=== PATIENT | female | born 1935 | race Caucasian/White ===

== ENCOUNTER 2016-10-20 02:42 | Inpatient (IN) | payer MEDICARE, MEDICAID ==
[~2016-10-20] VITALS: Ht 160 cm; Wt 93.5 kg
[~2016-10-20 02:42] MED LIST: GLIM2TAB PO; GLUC500T12 PO; LISI-567 PO; METF500T4 PO; METO25TA99 PO; MULT1CAP33 PO; SIMV40TA5 PO
[2016-10-20 04:17] VITALS: BP 121/69; PULSE 60; RESP 18; O2SAT 95
[2016-10-20] MEDS ORDERED: SULF1TAB7 PO (04:31)
[2016-10-20] MEDS ORDERED: FLUC100T4 PO (04:31)
[2016-10-20] MEDS ORDERED: GLIM2TAB2 PO (04:31)
[2016-10-20] MEDS ORDERED: LORA10CA PO (04:31)
--- NOTE | 2016-10-20 05:21 | NUR ---
admit: admit assessment complete, pt forgetful. med rec completed with meds that arrived with pt from home. pt is wearing glasses otherwise no other belongings. pt is alert to self and place, forgetful, repeating herself. will continue to monitor.
[2016-10-20 05:32] LABS: APPEARANCE,URINE CLEAR (CLEAR,HAZY); COLOR,URINE YELLOW (YELLOW); OCCULT BLOOD,URINE NEGATIVE (NEGATIVE); UROBILINOGEN,URINE NORMAL (NORMAL)
[2016-10-20] MEDS ORDERED: Polyethylene Glycol (PEG) 17 Gm Powder PO PRN (07:05)
[2016-10-20] MEDS ORDERED: Alum-Mag Hydrox-Simeth 30 mL Suspension PO PRN (07:05)
[2016-10-20] MEDS ORDERED: Ondansetron 2 mg/mL 2 mL Inj IVPUSH PRN (07:05)
[2016-10-20 07:59] LABS: BASOPHILS % (AUTO) 0.1 % (0-3); EOSINOPHILS % (AUTO) 0.1 % (0-5); MONOCYTES % (AUTO) 29.8 % (4-12); Mean Corpuscular Hemoglobin 28.6 pg (27.0-35.0); Mean Corpuscular Volume 84.8 fL (81-100); NEUTROPHILS % (AUTO) 42.5 % (40-74); Platelet Count 182 bil/L (150-400)
[2016-10-20] MEDS ORDERED: GLUCOSAMINE PO SCH (08:30)
--- NOTE | 2016-10-20 09:02 | HP ---
[address] [address] HISTORY AND PHYSICAL PATIENT: HILDA MARTINEZ : 1935 MR#: [id number] ADMIT: 10/20/2016 JOB ID: [id number] HISTORY OF PRESENT ILLNESS: This is a 81-year-old female admitted from the [facility] Emergency Department where she presented late last night with bilateral lower extremity weakness after her knees buckled under her and she could not get up from the floor. She was found by family quite quickly and so does not have high a risk picture for rhabdo. Workup including urinalysis, labs , troponins and EKGs was all normal but the patient still could not stand and walk and could not return home and so she was admitted on transfer for PT/OT and continued workup/treatment for the progressive weakness. At baseline she uses a walker and lives with her daughter. There has been no chest pain, nausea, vomiting abdominal pain, fevers, chills, sweats, dysuria, bleeding, rash, seizures, depression, new allergies. ALLERGIES: NGOC TYPE PARABEN ANESTHETICS. PAST MEDICAL HISTORY: 1. . 2. Hysterectomy. 3. Depression. 4. Hypertension. 5. DM type 2. 6. Hyperlipidemia. 7. Obesity. FAMILY HISTORY: Is noncontributory to this admission. SOCIAL HISTORY: She drinks no alcohol currently and does not smoke cigarettes. PHYSICAL EXAM: General: Alert and oriented to name only. No apparent distress. She is gazing up into the right no matter where I intervention analyst the room to speak with her. She appears to definitely neglect the left side. Vitals: Temperature is 36.7, pulse 60, respirations 18, blood pressure 121/69, O2 sat is 95% on room air. Pupils are equally round and reactive to light and accommodation. Extraocular muscles are intact. Sclerae are pink and not icteric. Throat looks normal. No lymph nodes are palpated. Neck/ supraclavicular: There is no thyromegaly. JVD is less than 6 cm. No carotid bruits are heard. Heart is regular rate and rhythm. No murmur. Lungs are clear to auscultation bilaterally. Abdomen is soft. Bowel sounds positive. Nontender. No organomegaly. Breast, pelvic and rectal examinations are deferred to her primary care provider. Extremities have no ankle edema. Neuro: Cranial nerves 2-12 tested intact. Motor function is 3/5 throughout. There is no tremor. The patient is distracted, hard of hearing, right gazing and left neglecting. Her motor function is symmetrically weakened without any lateralizing deficit there. Skin has no rash or jaundice. LABORATORIES: White count is 11.5, hemoglobin 15.8, platelets 182. CMP is pending. Urinalysis shows 0-2 RBCs, 0-5 WBCs, negative leukocyte esterase and nitrate. There is no imaging done yet. ASSESSMENT AND PLAN: 1. Diffuse weakness with examination suggestive of left austin-neglect. CT brain will be recommended as that does not appear to have been done at [place] in the emergency department there. PT and OT will evaluate her and dialysis social worker will evaluate for potential placement. She is not able to return to live with her daughter in this weakened state. 2. Hypertension. Continue lisinopril, metoprolol. 3. Diabetes mellitus type 2. Continue glimepiride and metformin. 4. Hyperlipidemia. Continue simvastatin. 5. Antibiotic therapy. The patient is on fluconazole and Bactrim at this time for unclear reasons that she is unable to describe. MTDD
[2016-10-20] MEDS: Trimethoprim-Sulfa 160 mg-800 mg Tablet PO SCH ×2 (09:23→21:05)
[2016-10-20] MEDS: MeTOProlol XL 25 mg ER24 Tablet PO SCH (09:24)
--- NOTE | 2016-10-20 09:41 | DRSVH ---
PROCEDURE: CT BRAIN WITHOUT CONTRAST ([id number]) INDICATIONS: Weakness and left neglect TECHNIQUE: Noncontrast 4.5 mm thick angled axial sections acquired from the foramen magnum to the vertex, with c oronal reformats. COMPARISON: [facility], CT, CT HEAD WO CONTRAST, 06/02/2016, 9:49 PM. FINDINGS: Image quality: Excellent. CSF spaces: Basal cisterns are patent. The ventricles are symmetric in size and shape. There is m ild cerebral volume loss, with resultant ventricular and sulcal prominence. Brain: There is effacement of garner-white matter differentiation as well as cortical and subcortical h yperattenuation involving a moderate sized region in the medial right occipital lobe consistent with an acute to subacute infarct. No associated hemorrhagic conversion. However, within the posterior l eft temporal lobe, there is subtle high attenuation along a few sulci suspicious for a small amount o f subarachnoid hemorrhage. In the right padilla radiata, there is an indistinct hypodensity which is new from the prior study and suggestive of a lacunar infarct of indeterminate acuity. There are also subcortical, periventricular and deep white matter hypodensities consistent with mild to moderate ch ronic small vessel ischemic changes. There is intracranial internal carotid artery atherosclerosis. Skull and face: Calvarium and visualized facial bones appear intact, without suspicious lesions. Sinuses: Visualized sinuses and mastoids are clear. IMPRESSION: 1. Acute or subacute infarct involving the right occipital lobe without associated hemorrhagic conve rsion. 2. Suggestion of a small amount of subarachnoid hemorrhage along the posterior left temporal lobe. 3. Small hypodensity in the right padilla radiata compatible with a small lacunar infarct of indeterm inate acuity. 4. Mild cerebral volume loss and chronic white matter small vessel ischemic changes. Recommend further evaluation with MRI if clinically indicated. Dictated by: Bo Shepard M.D. on 10/20/2016 at 9:37 Approved by: Bo Shepard M.D. on 10/20/2016 at 9:37
--- NOTE | 2016-10-20 11:32 | NUR ---
Evaluation completed. Please go to "Notes" then click on "Assessments and Notes" (bottom left corner of screen). Then select appropriate discipline tab on top of screen.
--- NOTE | 2016-10-20 12:09 | DRSVH ---
PROCEDURE: X-RAY CHEST ONE VIEW, PORTABLE ([id number]) INDICATIONS: Weakness TECHNIQUE: One view of the chest was acquired. COMPARISON: [facility], CR, XR CHEST 1V PORTABLE, 06/02/2016, 8:37 PM. FINDINGS: Surgical changes and devices: None. Lungs and pleura: The patient limited by patient rotation. No definite pleural effusions or pneumot horax. No definite consolidation. There is a nodular opacity in the left superhilar region likely c orresponding to complement vascular structures. Mediastinum: Heart size is enlarged. Bones and chest wall: No suspicious bony lesions. Overlying soft tissues appear unremarkable. IMPRESSION: 1. Limited study due to patient rotation demonstrates no definite consolidation. Recommend repeat s tudy if clinical concern persists. 2. Cardiomegaly. Dictated by: Bo Shepard M.D. on 10/20/2016 at 12:05 Approved by: Bo Shepard M.D. on 10/20/2016 at 12:05
--- NOTE | 2016-10-20 13:28 | NUR ---
Evaluation completed. Please go to "Notes" then click on "Assessments and Notes" (bottom left corner of screen). Then select appropriate discipline tab on top of screen.
--- NOTE | 2016-10-20 14:33 | DRSVH ---
PROCEDURE: MRI STROKE PROTOCOL ([id number]) Pre- and post-contrast brain MRI, non-contrast brain MR angiogram, pre- and postcontrast neck MR ramiro ogram INDICATIONS: CT (+) stroke TECHNIQUE: Brain: Noncontrast axial T1 spin echo, axial T2 fast spin echo, sagittal and axial FLAIR, coronal T2 fast spin echo, axial gradient echo, axial diffusion and ADC through the brain. After the administr ation of contrast, axial 3D VIBE of the cranial vasculature and brain. Brain MRA: Non-contrast 3-D time of flight MR angiogram, with multiple dxygswp-qejpewdfm-fpxbdnkidv (MIP) reformats performed. Neck MRA: Axial and sagittal TruFISP through the neck. Coronal dynamic MR angiogram during administ ration of contrast in the arterial and venous phases, with 3-dimenstional nxzkgqe-jjoltpbnm-legettvve n (MIP) reformats constructed from subtraction images. COMPARISON: [facility], CT, CT BRAIN WO CON, 10/20/2016, 8:48. FINDINGS: Image quality: Diagnostic. BRAIN: Brain: There is no acute intra-axial hemorrhage. Subtle areas of increased flair signal are identifi ed along the arachnoid space involving the left temporal occipital region (image 10, series 5), john tible with a subarachnoid hemorrhage comment especially when combined with the CT findings. No extra- axial fluid collection is identified. There is no midline shift or mass effect. The orbits are gross ly unremarkable. There is a diffuse area of vague increased signal on the flair images involving the posterior right parieto-occipital region and posterior right frontal region near the convexity. Veelina esponding increased signal within these regions on the diffusion images is present. A small area of increased diffusion and flair signal is noted involving the parahippocampal gyrus is also present at the right temporal lobe. No hemorrhagic conversion is appreciated. Mild decreased enhancement invol ving these regions is present on the postcontrast images. Additional foci of increased flair signal within the deep white matter of the supratentorial brain are present. The midline intracranial struc tures are within normal limits. No parenchymal masses are identified. The ventricles and cortical sulci mildly prominent. Bones: The imaged osseous structures are grossly intact. No suspicious osseous lesions are identifie d. The included paranasal sinuses and mastoid air cells are clear. Extracranial soft tissues: The imaged overlying soft tissues of the face and head are grossly unremar kable. BRAIN MR ANGIOGRAM: Anterior circulation: Intracranial internal carotid arteries are normal in size and enhancement. Th e flow within the paired anterior cerebral arteries is normal and symmetric. The flow within the mid dle cerebral arteries is normal and symmetric. The anterior communicating artery is seen. No stenos es, occlusions, or aneurysms. Posterior circulation: The left vertebral artery is diminutive and likely occluded. There is irregul arity of the basilar artery. Reduced or absent flow of the right posterior cerebral artery is presen t. A similar appearance is noted involving the right superior cerebellar artery. The left posterior cerebral artery and cerebellar arteries are patent and unremarkable. No aneurysms. NECK MR ANGIOGRAM: Carotids: Great vessels demonstrate a conventional anatomy as they arise from the aortic arch. The origins of the common carotid arteries appear patent. The calibers and courses of both common caroti d arteries are normal. The bifurcation regions appear normal bilaterally. The internal carotid tina rich demonstrate normal course and caliber. Posterior circulation: The right vertebral artery is normal in course and caliber without definite hi gh grade narrowing appreciated. There is mild atherosclerotic irregularity along the origin of the r ight vertebral artery. Mild tortuosity of the vertebral artery is present. The left vertebral arter y is occluded from the level of the origin. Only minimal flow is seen within the distal aspect of th e left vertebral artery near the basilar artery, which may be related to collateral vessels or retrog rade flow from the right vertebral artery/basilar artery. Miscellaneous: Subclavian arteries appear patent. Pre-contrast images through the neck show no soft tissue abnormalities. IMPRESSION: BRAIN MRI: 1. Right posterior cerebral artery infarction with acute ischemia noted involving the right parietal -occipital region, the right parahippocampal gyrus and superior margins of the right posterior fronta l lobe. No hemorrhagic conversion is evident involving these infarcted regions. 2. Small subarachnoid hemorrhage overlying the left temporal occipital region is unusual in the sett ing of stroke. Please correlate clinically for possible recent head trauma. Followup CT imaging wou ld be of value. 3. Chronic small vessel ischemic changes. 4. Mild parenchymal volume loss. BRAIN MR ANGIOGRAM: 1. Occluded right posterior cerebral artery. Diminutive flow versus occlusion of the right superior cerebellar artery. 2. Irregularity of the basilar artery is suspicious for a dissection. There is no aneurysm. 3. The anterior circulation of the brain is within normal limits. NECK MR ANGIOGRAM: 1. Occluded left vertebral artery is suspicious for dissection. However, chronic long-standing occl usion or occlusion related to atherosclerosis cannot be excluded. 2. Mild atherosclerosis of the origin of the right vertebral artery with mild tortuosity of the vess el without occlusion or high-grade narrowing. 3. No significant atherosclerosis of the bilateral common carotid arteries or internal carotid arter ies. There is no aneurysms, high-grade stenoses, or occlusions. Note: These findings were discussed with Dr. Singh at 1425 hours (PST) on 10/20/16. The estimate of stenosis included in the report of the imaging study was calculated using the NASCET method Dictated by: Jose Enrique Diaz M.D. on 10/20/2016 at 13:31 Approved by: Jose Enrique Diaz M.D. on 10/20/2016 at 13:31
[2016-10-20 14:54] VITALS: BP 135/67; PULSE 69; RESP 18; O2SAT 95
[2016-10-20 15:30] VITALS: PULSE 66
--- NOTE | 2016-10-20 16:10 | NUR ---
Social Work-initial assessment: Data:See initial assessment. Pt is a 81 y/o female who was admitted on 10/20/16 for weakness per H&P. Pt's insurance is [facility] and PCP is TIMUR Lin. EMR Reviewed. SW met with pt at bedside to discuss discharge planning, SW role explained. Pt resides at home where she remains independent with ADLS. Pt does not drive and uses a fww at baseline. Pt has no HH or SNF history. Pt has no senior care care or VA benefits. SW discussed DPOA/advanced directive with pt, pt states she has not completed this and is interested in paperwork, which SW has provided. PT and ST both worked with pt and are recommending Inpt rehab. sW discussed with pt and pt would like SW to speak with Daughter. SW attempted to reach daughter, SW to follow up tomorrow. SW will continue to follow. Assessment:Pt to benefit from inpt rehab. Plan:SW to follow up again tomorrow regarding inpt rehab. SW will continue to follow. ZULEIMA Gordon Addendum: 10/20/16 at 1618 by JAIMEE ORTIZ Amended: Links added.
--- NOTE | 2016-10-20 16:33 | CONS ---
[address] [address] CONSULTATION REPORT PATIENT: HILDA MARTINEZ : 1935 MR#: [id number] ADMIT: 10/20/2016 JOB ID: [id number] DATE OF SERVICE: 10/20/2016 NEUROLOGY CONSULTATION: REQUESTING PROVIDER: Roberto Singh MD CHIEF COMPLAINT: Sudden onset of left-sided neglect and left lower extremity weakness. HISTORY OF PRESENTING ILLNESS: The patient is a pleasant 81-year-old, right-handed woman with multiple medical problems who reportedly experienced sudden onset of left-sided weakness and neglect. She was initially seen at [facility] and then transferred here. Reportedly she has a history of prior transient ischemic attacks in the past. She reports that her left knee buckled at home when using her walker. She lives with her daughter. She has had she reports 5-6 falls over the last week and has been seeing a physical therapist. She does not recall hitting her head. She describes the sudden onset of weakness of her left leg. An initial CT of her head demonstrated acute or subacute infarct involving the right occipital lobe without associated hemorrhagic conversion. Suggestion of a small amount of subarachnoid hemorrhage along the posterior left temporal lobe, a small hypodensity in the right padilla radiata compatible with a small lacunar infarct of indeterminate acuity, mild cerebral volume loss, and chronic white matter small vessel ischemic changes. She did undergo a magnetic resonance imaging study of her brain today and this demonstrated a right posterior cerebral artery infarction with acute ischemia noted involving the right parieto-occipital region, the right parieto-hippocampal gyrus, and the superior margin of the right posterior frontal lobe. No hemorrhagic conversion was evident. Small subarachnoid hemorrhage overlying the left temporal occipital region is unusual in the setting of stroke; however, given that she fell on six occasions, my suspicion is that at least on one of those occasions she may have hit her head although she does not recall this. Chronic small vessel ischemic changes and mild parenchymal volume loss. There is an occluded right posterior cerebral artery which correlates with the distribution of her stroke. Diminutive flow versus occlusion of the right superior cerebellar artery. Irregularity of the basilar artery suspicious for a dissection. There is no aneurysm. The anterior circulation of the brain is within normal limits. There is an occluded left vertebral artery suspicious for dissection; however, chronic longstanding occlusion or occlusion related to atherosclerosis cannot be excluded. Mild atherosclerosis of the origins of the right vertebral artery, with mild tortuosity of the vessel, without occlusion or high-grade narrowing was noted. No significant atherosclerosis of the bilateral common carotid arteries or internal carotid arteries was noted. There were no aneurysms, high-grade stenosis, or occlusions. PAST MEDICAL HISTORY: Remarkable for diabetes mellitus type 2, chronic pain disorder, hypertension, and anxiety. PAST SURGICAL HISTORY: Left knee surgery, section, hysterectomy, eye surgery, and joint replacement. FAMILY HISTORY: No family history of any neurologic disorders. SOCIAL HISTORY: She lives with her daughter. No tobacco, alcohol, or drugs. ALLERGIES: No known drug allergies. REVIEW OF SYSTEMS: A complete review of systems was performed and was remarkable for above-noted. Given the clinical history, it appears that she was outside of the tPA window when she arrived at our hospital. Based on the presence of this subarachnoid hemorrhage, also any type of internal arterial tPA or further interventions likely would be precluded given the presence of the subarachnoid hemorrhage. MEDICATIONS: Include aspirin 325 mg, atorvastatin 20 mg, Lovenox 40 mg, fluconazole 100 mg, glimepiride 2 mg, lisinopril 20 mg, loratadine 10 mg, metformin 500 mg b.i.d., metoprolol 25 mg daily, Zofran as needed, Senokot as needed, and trimethoprim sulfamethoxazole 1 tablet p.o. b.i.d. LABORATORY STUDIES: WBC of 11.5, hemoglobin 15.8, hematocrit 46.8, and platelets of 192. Sodium 139, potassium 4.7, chloride 101, bicarb was 24, BUN was 8, creatinine was 0.87, and glucose was 156. LFTs were within normal limits. Urinalysis: Moderate urine epithelial cells. A chest x-ray was also performed showing a limited study due to patient rotation demonstrates no definite consolidation and cardiomegaly was noted. PHYSICAL EXAMINATION: Temperature 36.7, pulse of 60, respiratory rate of 18, blood pressure 121/69, pulse oximetry 95% on room air. General: She is a well-developed, well-nourished woman in no acute distress. Head: Normocephalic, atraumatic. Neck: Supple. No carotid bruits were auscultated. Chest: Clear to auscultation. Heart: Regular rate and rhythm. Abdomen: Soft, nondistended, nontender. Extremities: No cyanosis, clubbing, or edema. NEUROLOGIC EXAMINATION: Mental status: She is awake, alert, oriented x3. Speech clear and fluent, with intact comprehension. There is no aphasia. She does lean to the left. Her eyes also appear to demonstrate a preference for the right. Cranial nerves: Pupils equal, round, and reactive to light. There is definitely a right-sided preference. Gaze preference noted. Extraocular movements were smooth and conjugate, with no evidence of nystagmus. Face did appear symmetrical. Facial sensation was intact to light touch and temperature. Auditory sensation was intact to finger rub. Palatal elevation was symmetrical. Tongue was midline. Sternocleidomastoid and trapezii are 5/5 bilaterally. There is definitely neglect of her left side, with a right gaze preference. Motor: She is able to lift the left upper and left lower extremities above gravity. She does have a 4/5 extension agent in the left upper extremity and I would say the left upper extremity is 4/5. The left lower extremity is 3/5. Sensation is intact to light touch and temperature. Deep tendon reflexes were diminished throughout. Plantars were flexor bilaterally. Visual field examination demonstrated a left homonymous hemianopsia. There is pronator drift on the left noted. Gait was deferred. IMPRESSION: Cerebrovascular accident involving the right posterior cerebral artery with occlusion of the right posterior cerebral artery. It is unclear if this is secondary to artery to artery embolism, versus a left vertebral artery dissection with associated dissection of the basilar artery, versus a cardioembolic etiology. There is acute ischemia involving the right parieto-occipital region, the right parahippocampal gyrus, and the superior margins of the right posterior frontal lobe. I do recommend continuing aspirin 325 mg daily. I do recommend a repeat CT of her head without contrast to be performed tomorrow morning. If this does not show any change in the size of her subarachnoid hemorrhage she may benefit from the addition of Plavix 75 mg daily given the concern for intracranial stenosis/dissection of the basilar artery. It is unclear if this is secondary to atherosclerotic disease resulting in high-grade narrowing versus dissection. In any case, the presence of atherosclerotic disease resulting in intracranial stenosis would warrant dual antiplatelet therapy. In the event that this is secondary to a dissection, she may benefit from dual antiplatelet therapy as well. Another possibility if the dissection is confirmed is anticoagulation. However, I would recommend first obtaining the CT of her brain without contrast tomorrow morning to assess the status of the subarachnoid hemorrhage, and then obtaining a CT angiogram of her head and neck to further assess the abnormalities appreciated on the neck and brain magnetic resonance angiogram to further clarify if indeed the irregularities present represent either high-grade atherosclerotic disease/stenosis versus dissection. In the event that the subarachnoid hemorrhage is noted to have progressed or worsened on the repeat CT of her head with contrast tomorrow morning, I will contact [facility] or [facility] for a possible transfer consultation. I would continue to optimize control of her stroke risk factors in this case including diabetes, hypertension, and hyperlipidemia, as well as obesity. She does not smoke. Her NIH stroke scale is 1 for best gaze as she does have a gaze preference to the right, 2 for visual as she does have left homonymous hemianopia, 1 for left motor arm as she does have a degree of drift, 2 for her left lower extremity as she does have some degree of effort and is able to get it above gravity, 1 for sensory as she does have a mild degree of sensory loss on the left, 1 for extinction neglect as she does have neglect of the left side of her body. Her modified [place] scale is a four. I would also obtain a 2D echocardiogram and possibly a transient esophageal echocardiogram. Continue telemetry monitoring. Rule out cardioembolic etiology such as paroxysmal atrial fibrillation versus a cardiac thrombus. Continue stroke protocol. Thank you again, Dr. Singh, for allowing me to participate in the care of your patient. Please feel free to contact me with any questions or concerns. ADDITIONAL INFORMATION: I spoke with Dr. Diaz, radiology. He and I discussed obtaining a CT angiogram head and neck to further delineate whether the abnormalities appreciated on the MRA represent atherosclerotic changes/stenosis versus dissection. I still recommend obtaining a CT of the head without contrast tomorrow morning to assess for any worsening or progression of the subarachnoid hemorrhage. Addenda added by RAYMUNDO 10/22/16 at 7:24am
[2016-10-20 17:11] VITALS: BP 132/81; PULSE 61; RESP 18; O2SAT 98
--- NOTE | 2016-10-20 17:22 | DRSVH ---
PROCEDURE: CT ANGIO HEAD AND NECK (P) INDICATIONS: r/o dissection TECHNIQUE: Pre-contrast 4.5 mm thick sections acquired from the foramen magnum to the vertex. After the adminis tration of intravenous contrast, 1 mm thick sections acquired from the aortic arch through the [place] of [place]. Post-contrast 4.5 mm thick sections then re-acquired from the foramen magnum to the vert ex. 3-dimensional sysezre-czfxorqnn-dgnxxkwnos (MIP) and/or volume rendering reformats were acquired of the central intracranial vasculature and neck separately. For radiation dose reduction, the foll owing was used: automated exposure control, adjustment of mA and/or kV according to patient size. COMPARISON: [facility], , MR STROKE PROTOCOL, 10/20/2016, 12:54. FINDINGS: Image quality: Excellent. BRAIN: CSF spaces: There is mild cerebral volume loss with prominence of the ventricles and sulci. Brain: There is a moderate sized infarct redemonstrated in the right occipital parietal lobe. There are also small infarcts along the posterior right frontal lobe demonstrated medially. Subtle subara chnoid hemorrhage along the posterior left temporal lobe is again noted. No new hemorrhage or mass e ffect compared to the recent study. A prior lacunar infarct redemonstrated in the right padilla radia ta. Skull and face: Calvarium and facial bones appear intact, without suspicious lesions. Orbits appear normal. I Sinuses: Sinuses and mastoids are clear. HEAD CT ANGIOGRAPHY: Anterior circulation: Intracranial internal carotid arteries are patent bilaterally. There is occlu chrissie of the right anterior cerebral artery at the level of the proximal A2 segment. There is likely collateral flow of the distal territories from the left side. The flow within the middle cerebral ar teries is patent bilaterally with a short segment stenosis in the M2 segment of the right middle cere bral artery of approximately 50-60%. The anterior communicating artery is patent. No definite aneur ysms. Posterior circulation: There is a diminutive distal left vertebral artery which joins with the right vertebral artery to form the basilar artery. There is focal narrowing in the mid basilar artery of approximately 50%. There is persistent circulation with the right posterior cerebral artery simpson pplied by the posterior communicating artery. There is a short segment stenosis within the P2 segmen t of the right posterior cerebral artery with narrowing of approximately 60-70%. The left posterior cerebral artery appears patent. NECK CT ANGIOGRAPHY: Carotid system: The great vessels demonstrate conventional anatomy as they arise from the aortic arc h. The origins of the common carotid arteries appear patent. The common carotid arteries demonstrat e normal caliber and courses. The carotid bulbs appear widely patent. The internal carotid arteries demonstrate normal calibers and courses. Posterior circulation: The origin of the left vertebral artery is not well-visualized. There is a lo ng segment occlusion of the proximal left vertebral artery with reconstitution distally at the level of C2. The right vertebral artery appears patent. Soft tissues: The thyroid is heterogeneous in appearance with small indistinct nodules bilaterally as well as multiple foci of calcifications. Bones: No suspicious bony lesions. There is straightening of the cervical lordosis with multilevel degenerative changes including severe disc space narrowing at C5-C6 with endplate osteophytosis and s clerosis. IMPRESSION: 1. 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 The etiology of the chronic occlusion is indete rminate but likely atherosclerotic. 2. Occlusion of the distal right anterior cerebral artery at the level of the proximal A2 segment wi th likely collateral flow distally from the left side. 3. Short segment stenosis of approximately 50-60% in the M2 segment of the right middle cerebral art keri. 4. Short segment stenosis in the P2 segment of the right posterior cerebral artery of approximately 60-70%. 5. Right occipital and posterior frontal lobe infarcts redemonstrated as seen on the recent MRI. 5. Small amount of left subarachnoid hemorrhage redemonstrated along the temporal lobe. No definite new foci of hemorrhage. Dictated by: Bo Shepard M.D. on 10/20/2016 at 17:21 Approved by: Bo Shepard M.D. on 10/20/2016 at 17:21
--- NOTE | 2016-10-20 18:33 | NUR ---
Mobility /Weakness/Mentation: Patient has severe Left sided weakness when standing and transferring to the bed side commode. She requires 2 person Max assisst and coaching to move her legs . Patient at times thinks people from her family are in her room that arent there. She becomes easily confused and did not recognize her phone or what it was used for. Frequent coaching , reassurance and reorientation provided for patient throughout the day.
[2016-10-20 21:01] VITALS: BP 154/81; PULSE 76; O2SAT 96
--- NOTE | 2016-10-20 22:48 | PCM.PNMED ---
Subjective Date of Service Oct 20, 2016 Subjective Patient still complains of left-sided weakness. She appears to have little prehension as to how much neurological deficit she actually has. Exam Vital Signs Vital Sign - Last Date Time Temp Pulse Resp B/P Pulse Ox O2 Delivery O2 Flow Rate FiO2 10/20/16 21:01 36.8 76 154/81 96 Room Air 10/20/16 17:11 18 Intake and Output 10/19/16 10/19/16 10/20/16 Cumulative From/Thru 15:00 23:00 07:00 10/20/16 04:18 - 10/20/16 06:26 Intake Total 0 ml 0 ml Output Total 300 ml 300 ml Balance -300 ml -300 ml Intake Oral 0 ml 0 ml Output Urine Total 300 ml 300 ml Exam Interval: Patient is in no apparent distress leaning to the right in bed. HEENT: Head is atraumatic normocephalic. Eyes: Pupils are equally round and reactive to light and accommodation. Extraocular muscles are intact. Sclera are white anicteric. Subconjunctival mucosa is pink. Ears and nose are unremarkable. Oropharynx: There is no mucosal lesions, there is no thrush, there is no pharyngitis. Neck: Is supple, there are no nodes or masses or tenderness. Chest: Is clear to auscultation and percussion. There are no rales, rhonchi, wheezes or rubs. Heart: Rate , rhythm is regular. There is no murmur, rub or gallop. Abdomen: Good bowel sounds are present. Abdomen is soft, nontender, no organomegaly or masses were appreciated. Extremities: Are symmetrical and well perfused. There is no edema, there is no cellulitis, no rash. Neurologic: Patient exhibits sided neglect. Her motor strength is 3+ in the left upper extremity 5+ right upper extremity and 3-4 + left lower extremity. Patient's visual thompson are off. Psychiatric: Patients mood is calm and shows no sign of agitation. Genital: Deferred Rectal: Deferred Lab and Diagnostics Result Diagram: 10/20/16 0739 10/20/16 0739 X-Rays, CTs and MRIs PROCEDURE: CT ANGIO HEAD AND NECK (P) INDICATIONS: r/o dissection TECHNIQUE: Pre-contrast 4.5 mm thick sections acquired from the foramen magnum to the vertex. After the administration of intravenous contrast, 1 mm thick sections acquired from the aortic arch through the [place] of [place]. Post-contrast 4.5 mm thick sections then re-acquired from the foramen magnum to the vertex. 3- dimensional hcssoxf-gmqyzqbew-cxfnilkkcb (MIP) and/or volume rendering reformats were acquired of the central intracranial vasculature and neck separately. For radiation dose reduction, the following was used: automated exposure control, adjustment of mA and/or kV according to patient size. COMPARISON: [facility], , MR STROKE PROTOCOL, 10/20/2016, 12:54. FINDINGS: Image quality: Excellent. BRAIN: CSF spaces: There is mild cerebral volume loss with prominence of the ventricles and sulci. Brain: There is a moderate sized infarct redemonstrated in the right occipital parietal lobe. There are also small infarcts along the posterior right frontal lobe demonstrated medially. Subtle subarachnoid hemorrhage along the posterior left temporal lobe is again noted. No new hemorrhage or mass effect compared to the recent study. A prior lacunar infarct redemonstrated in the right padilla radiata. Skull and face: Calvarium and facial bones appear intact, without suspicious lesions. Orbits appear normal. I Sinuses: Sinuses and mastoids are clear. HEAD CT ANGIOGRAPHY: Anterior circulation: Intracranial internal carotid arteries are patent bilaterally. There is occlusion of the right anterior cerebral artery at the level of the proximal A2 segment. There is likely collateral flow of the distal territories from the left side. The flow within the middle cerebral arteries is patent bilaterally with a short segment stenosis in the M2 segment of the right middle cerebral artery of approximately 50-60%. The anterior communicating artery is patent. No definite aneurysms. Posterior circulation: There is a diminutive distal left vertebral artery which joins with the right vertebral artery to form the basilar artery. There is focal narrowing in the mid basilar artery of approximately 50%. There is persistent circulation with the right posterior cerebral artery supplied by the posterior communicating artery. There is a short segment stenosis within the P2 segment of the right posterior cerebral artery with narrowing of approximately 60-70%. The left posterior cerebral artery appears patent. NECK CT ANGIOGRAPHY: Carotid system: The great vessels demonstrate conventional anatomy as they arise from the aortic arch. The origins of the common carotid arteries appear patent. The common carotid arteries demonstrate normal caliber and courses. The carotid bulbs appear widely patent. The internal carotid arteries demonstrate normal calibers and courses. Posterior circulation: The origin of the left vertebral artery is not well- visualized. There is a long segment occlusion of the proximal left vertebral artery with reconstitution distally at the level of C2. The right vertebral artery appears patent. Soft tissues: The thyroid is heterogeneous in appearance with small indistinct nodules bilaterally as well as multiple foci of calcifications. Bones: No suspicious bony lesions. There is straightening of the cervical lordosis with multilevel degenerative changes including severe disc space narrowing at C5-C6 with endplate osteophytosis and sclerosis. IMPRESSION: 1. 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 The etiology of the chronic occlusion is indeterminate but likely atherosclerotic. 2. Occlusion of the distal right anterior cerebral artery at the level of the proximal A2 segment with likely collateral flow distally from the left side. 3. Short segment stenosis of approximately 50-60% in the M2 segment of the right middle cerebral artery. 4. Short segment stenosis in the P2 segment of the right posterior cerebral artery of approximately 60-70%. 5. Right occipital and posterior frontal lobe infarcts redemonstrated as seen on the recent MRI. 5. Small amount of left subarachnoid hemorrhage redemonstrated along the temporal lobe. No definite new foci of hemorrhage. Dictated by: Bo Shepard M.D. on 10/20/2016 at 17:21 Approved by: Bo Shepard M.D. on 10/20/2016 at 17:21 PROCEDURE: MRI STROKE PROTOCOL ([id number]) Pre- and post-contrast brain MRI, non-contrast brain MR angiogram, pre- and postcontrast neck MR angiogram INDICATIONS: CT (+) stroke TECHNIQUE: Brain: Noncontrast axial T1 spin echo, axial T2 fast spin echo, sagittal and axial FLAIR, coronal T2 fast spin echo, axial gradient echo, axial diffusion and ADC through the brain. After the administration of contrast, axial 3D VIBE of the cranial vasculature and brain. Brain MRA: Non-contrast 3-D time of flight MR angiogram, with multiple maximum- intensity-projection (MIP) reformats performed. Neck MRA: Axial and sagittal TruFISP through the neck. Coronal dynamic MR angiogram during administration of contrast in the arterial and venous phases, with 3-dimenstional qsneepg-uigulhujg-iaoiuvrrni (MIP) reformats constructed from subtraction images. COMPARISON: [facility], CT, CT BRAIN WO CON, 10/20/2016, 8:48. FINDINGS: Image quality: Diagnostic. BRAIN: Brain: There is no acute intra-axial hemorrhage. Subtle areas of increased flair signal are identified along the arachnoid space involving the left temporal occipital region (image 10, series 5), compatible with a subarachnoid hemorrhage comment especially when combined with the CT findings. No extra- axial fluid collection is identified. There is no midline shift or mass effect. The orbits are grossly unremarkable. There is a diffuse area of vague increased signal on the flair images involving the posterior right parieto- occipital region and posterior right frontal region near the convexity. Corresponding increased signal within these regions on the diffusion images is present. A small area of increased diffusion and flair signal is noted involving the parahippocampal gyrus is also present at the right temporal lobe. No hemorrhagic conversion is appreciated. Mild decreased enhancement involving these regions is present on the postcontrast images. Additional foci of increased flair signal within the deep white matter of the supratentorial brain are present. The midline intracranial structures are within normal limits. No parenchymal masses are identified. The ventricles and cortical sulci mildly prominent. Bones: The imaged osseous structures are grossly intact. No suspicious osseous lesions are identified. The included paranasal sinuses and mastoid air cells are clear. Extracranial soft tissues: The imaged overlying soft tissues of the face and head are grossly unremarkable. BRAIN MR ANGIOGRAM: Anterior circulation: Intracranial internal carotid arteries are normal in size and enhancement. The flow within the paired anterior cerebral arteries is normal and symmetric. The flow within the middle cerebral arteries is normal and symmetric. The anterior communicating artery is seen. No stenoses, occlusions, or aneurysms. Posterior circulation: The left vertebral artery is diminutive and likely occluded. There is irregularity of the basilar artery. Reduced or absent flow of the right posterior cerebral artery is present. A similar appearance is noted involving the right superior cerebellar artery. The left posterior cerebral artery and cerebellar arteries are patent and unremarkable. No aneurysms. NECK MR ANGIOGRAM: Carotids: Great vessels demonstrate a conventional anatomy as they arise from the aortic arch. The origins of the common carotid arteries appear patent. The calibers and courses of both common carotid arteries are normal. The bifurcation regions appear normal bilaterally. The internal carotid arteries demonstrate normal course and caliber. Posterior circulation: The right vertebral artery is normal in course and caliber without definite high grade narrowing appreciated. There is mild atherosclerotic irregularity along the origin of the right vertebral artery. Mild tortuosity of the vertebral artery is present. The left vertebral artery is occluded from the level of the origin. Only minimal flow is seen within the distal aspect of the left vertebral artery near the basilar artery, which may be related to collateral vessels or retrograde flow from the right vertebral artery/basilar artery. Miscellaneous: Subclavian arteries appear patent. Pre-contrast images through the neck show no soft tissue abnormalities. IMPRESSION: BRAIN MRI: 1. Right posterior cerebral artery infarction with acute ischemia noted involving the right parietal-occipital region, the right parahippocampal gyrus and superior margins of the right posterior frontal lobe. No hemorrhagic conversion is evident involving these infarcted regions. 2. Small subarachnoid hemorrhage overlying the left temporal occipital region is unusual in the setting of stroke. Please correlate clinically for possible recent head trauma. Followup CT imaging would be of value. 3. Chronic small vessel ischemic changes. 4. Mild parenchymal volume loss. BRAIN MR ANGIOGRAM: 1. Occluded right posterior cerebral artery. Diminutive flow versus occlusion of the right superior cerebellar artery. 2. Irregularity of the basilar artery is suspicious for a dissection. There is no aneurysm. 3. The anterior circulation of the brain is within normal limits. NECK MR ANGIOGRAM: 1. Occluded left vertebral artery is suspicious for dissection. However, chronic long-standing occlusion or occlusion related to atherosclerosis cannot be excluded. 2. Mild atherosclerosis of the origin of the right vertebral artery with mild tortuosity of the vessel without occlusion or high-grade narrowing. 3. No significant atherosclerosis of the bilateral common carotid arteries or internal carotid arteries. There is no aneurysms, high-grade stenoses, or occlusions. Note: These findings were discussed with Dr. Singh at 1425 hours (PST) on 10/20. The estimate of stenosis included in the report of the imaging study was calculated using the NASCET method Dictated by: Jose Enrique Diaz M.D. on 10/20/2016 at 13:31 Approved by: Jose Enrique Diaz M.D. on 10/20/2016 at 13:31 PROCEDURE: CT BRAIN WITHOUT CONTRAST ([id number]) INDICATIONS: Weakness and left neglect TECHNIQUE: Noncontrast 4.5 mm thick angled axial sections acquired from the foramen magnum to the vertex, with coronal reformats. COMPARISON: [facility], CT, CT HEAD WO CONTRAST, 06/02/2016, 9:49 PM. FINDINGS: Image quality: Excellent. CSF spaces: Basal cisterns are patent. The ventricles are symmetric in size and shape. There is mild cerebral volume loss, with resultant ventricular and sulcal prominence. Brain: There is effacement of garner-white matter differentiation as well as cortical and subcortical hyperattenuation involving a moderate sized region in the medial right occipital lobe consistent with an acute to subacute infarct. No associated hemorrhagic conversion. However, within the posterior left temporal lobe, there is subtle high attenuation along a few sulci suspicious for a small amount of subarachnoid hemorrhage. In the right padilla radiata, there is an indistinct hypodensity which is new from the prior study and suggestive of a lacunar infarct of indeterminate acuity. There are also subcortical, periventricular and deep white matter hypodensities consistent with mild to moderate chronic small vessel ischemic changes. There is intracranial internal carotid artery atherosclerosis. Skull and face: Calvarium and visualized facial bones appear intact, without suspicious lesions. Sinuses: Visualized sinuses and mastoids are clear. IMPRESSION: 1. Acute or subacute infarct involving the right occipital lobe without associated hemorrhagic conversion. 2. Suggestion of a small amount of subarachnoid hemorrhage along the posterior left temporal lobe. 3. Small hypodensity in the right padilla radiata compatible with a small lacunar infarct of indeterminate acuity. 4. Mild cerebral volume loss and chronic white matter small vessel ischemic changes. Recommend further evaluation with MRI if clinically indicated. Dictated by: Bo Shepard M.D. on 10/20/2016 at 9:37 Approved by: Bo Shepard M.D. on 10/20/2016 at 9:37 PROCEDURE: X-RAY CHEST ONE VIEW, PORTABLE ([id number]) INDICATIONS: Weakness TECHNIQUE: One view of the chest was acquired. COMPARISON: [facility], CR, XR CHEST 1V PORTABLE, 06/02/2016, 8: 37 PM. FINDINGS: Surgical changes and devices: None. Lungs and pleura: The patient limited by patient rotation. No definite pleural effusions or pneumothorax. No definite consolidation. There is a nodular opacity in the left superhilar region likely corresponding to complement vascular structures. Mediastinum: Heart size is enlarged. Bones and chest wall: No suspicious bony lesions. Overlying soft tissues appear unremarkable. IMPRESSION: 1. Limited study due to patient rotation demonstrates no definite consolidation. Recommend repeat study if clinical concern persists. 2. Cardiomegaly. Dictated by: Bo Shepard M.D. on 10/20/2016 at 12:05 Approved by: Bo Shepard M.D. on 10/20/2016 at 12:05 Assessment & Plan The patient is a pleasant 81-year-old, right-handed woman with multiple medical problems who reportedly experienced sudden onset of left-sided weakness and neglect. She was initially seen at [facility] and then transferred here. Reportedly she has a history of prior transient ischemic attacks in the past. She reports that her left knee buckled at home when using her walker. She lives with her daughter. She has had she reports 5-6 falls over the last week and has been seeing a physical therapist. She does not recall hitting her head. She describes the sudden onset of weakness of her left leg. Patient was admitted directly to the hospital service for further evaluation and treatment. # Patient has suffered a vascular accident. -Neurology was consulted and patient was seen with neurologist Dr. Riaz Marcano. His assessment and recommendations are as follows: "IMPRESSION: Cerebrovascular accident involving the right posterior cerebral artery with occlusion of the right posterior cerebral artery. It is unclear if this is secondary to artery to artery embolism, versus a left vertebral artery dissection with associated dissection of the basilar artery, versus a cardioembolic etiology. There is acute ischemia involving the right parieto-occipital region, the right parahippocampal gyrus, and the superior margins of the right posterior frontal lobe. I do recommend continuing aspirin 325 mg daily. I do recommend a repeat CT of her head without contrast to be performed tomorrow morning. If this does not show any change in the size of her subarachnoid hemorrhage she may benefit from the addition of Plavix 75 mg daily given the concern for intracranial stenosis/dissection of the basilar artery. It is unclear if this is secondary to atherosclerotic disease resulting in high-grade narrowing versus dissection. In any case, the presence of atherosclerotic disease resulting in intracranial stenosis would warrant dual antiplatelet therapy. In the event that this is secondary to a dissection, she may benefit from dual antiplatelet therapy as well. Another possibility if the dissection is confirmed is anticoagulation. However, I would recommend first obtaining the CT of her brain without contrast tomorrow morning to assess the status of the subarachnoid hemorrhage, and then obtaining a CT angiogram of her head and neck to further assess the abnormalities appreciated on the neck and brain magnetic resonance angiogram to further clarify if indeed the irregularities present represent either high-grade atherosclerotic disease/stenosis versus dissection. In the event that the subarachnoid hemorrhage is noted to have progressed or worsened on the repeat CT of her head with contrast tomorrow morning, I will contact [facility] or [facility] for a possible transfer consultation. I would continue to optimize control of her stroke risk factors in this case including diabetes, hypertension, and hyperlipidemia, as well as obesity. She does not smoke." # Hypertension. -Continue lisinopril, metoprolol is at home for now. # Diabetes mellitus type 2. -Continue glimepiride and metformin. # Hyperlipidemia. -Continue simvastatin. # Antibiotic therapy. The patient is on fluconazole and Bactrim at this time for unclear reasons that she is unable to describe. I suspect this is for a recent urinary tract infection Disposition: Patient will require PT OT and speech therapy and likely will need placement in a rehabilitation center. Will discuss further plans with Dr. Blakely. Pain Evaluation: Adequate Pain Control GI Prophylaxis: Proton Pump Inhibitor VTE Prophylaxis: Sub-Q Enoxaparin Resuscitation Status: CPR: Attempt Resuscitation Roberto Singh MD Oct 20, 2016 22:48
[2016-10-21] VITALS (7 sets, daily range): BP systolic 131–146; BP diastolic 65–84; PULSE 54–69; RESP 18–20; O2SAT 92–96
--- NOTE | 2016-10-21 05:09 | NUR ---
mentation: pt confused at start shift. pt alert to self only. pt's family left, and pt increasingly restless, leaning over the side of the bed, trying to reach under the bed. pt pulled tele leads off several time, and pulled out IV. pt switched to a low bed, POSE alarm in place. pt c/o headache, hospitalist contacted order for Tylenol, and aware pt will not leave her tele on, or IV in place. RN will attempt tele and IV when pt becomes more cooperative. pt has removed her gown, brief, and has been sleeping. will continue to monitor Addendum: 10/21/16 at 0646 by SHIRLEY SEVILLA RN pt has allowed tele, IV placement, gown, and brief. will continue to monitor. pt remains alert to self only, however pt is lying quietly in bed. will continue to monitor.
[2016-10-21] MEDS: Trimethoprim-Sulfa 160 mg-800 mg Tablet PO SCH ×2 (08:44→20:21)
[2016-10-21] MEDS: Pantoprazole 40 mg ER24 Tablet PO SCH (08:44)
[2016-10-21] MEDS: MeTOProlol XL 25 mg ER24 Tablet PO SCH (08:45)
--- NOTE | 2016-10-21 11:41 | DRSVH ---
PROCEDURE: CT BRAIN WITHOUT CONTRAST ([id number]) INDICATIONS: Follow up for [facility] TECHNIQUE: Noncontrast 4.5 mm thick angled axial sections acquired from the foramen magnum to the vertex, with c oronal reformats. COMPARISON: [facility], CT, CT BRAIN WO CON, 10/20/2016, 8:48. FINDINGS: Image quality: Excellent. CSF spaces: Basal cisterns are patent. No extra-axial fluid collections. The ventricles are symmet michelle in size and shape. Brain: No definite intracranial bleeds or masses but there is mild interval increased mass effect fr om the medial right posterior occipital infarction, effacing the occipital horn of the right lateral ventricle to a greater degree. No hemorrhagic transformation of this infarction is found. The subtl e areas of mild elevated radiodensity at several sulci of the posterior left temporal lobe do not curly ch the threshold for diagnosis of subarachnoid hemorrhage. There is cerebral volume loss for age, wi th resultant ventricular and sulcal prominence. There are periventricular and deep white matter carpenter bridge stefani small vessel ischemic changes. There is intracranial internal carotid artery atherosclerosis. Skull and face: Calvarium and visualized facial bones appear intact, without suspicious lesions. Sinuses: Visualized sinuses and mastoids are clear. IMPRESSION: Evolution of mild edema associated with a medial right occipital stroke, which has not d eveloped evidence of hemorrhagic transformation. Mild increased mass effect associated, as noted. There is no definite identified focus of subarachnoid hemorrhage. The several subtle areas of increa sed radiodensity along several left posterior temporal sulci could be more accurately assessed, howev er, by MR scanning if clinically desired. Any blood products in that area be easily identifiable dur ing MR imaging. Dictated by: Yordy Vilchis M.D. on 10/21/2016 at 11:39 Approved by: Yordy Vilchis M.D. on 10/21/2016 at 11:39
--- NOTE | 2016-10-21 15:15 | NUR ---
Social Work-continued d/c planning: Data:EMR Reviewed. Pt is on day 1 of hospitalization for weakness per H&P. PT/ST continue to recommend SNF, OT is pending. SW followed up with pt and daughter Allison at bedside to further discuss. Pt's daughter states pt does live with her and she works for about 4 hours in the afternoon. Daughter has questions about caregiving,etc. SW explained that with pt's insurance this would be private pay. SW discussed LIZZ with pt's daughter and provided her with application and also senior resource guidebook. SW explained recommendation of inpt rehab, SW also discussed SNF if Inpt is not able to accept pt. SW provided daughter with SNF choice list. Daughter would like referral to [facility] and [facility] inpt rehab. SW faxed facesheet and PASRR to [facility], access provided. SW also faxed packet to [facility] inpt rehab. SW called [facility] and left message with admissions phone. Paperwork and PASRR in the chart. SW will continue to follow. Assessment:Inpt rehab vs SNF. Plan:[facility] inpt rehab has been faxed and referral sent to [facility]. Paperwork and PASRR in the chart. SW will continue to follow. ZULEIMA Gordon
[2016-10-21 15:39] LABS: BASOPHILS % (AUTO) 0.2 % (0-3); EOSINOPHILS % (AUTO) 0.2 % (0-5); MONOCYTES % (AUTO) 30.2 % (4-12); Mean Corpuscular Hemoglobin 28.8 pg (27.0-35.0); Mean Corpuscular Volume 84.4 fL (81-100); Platelet Count 159 bil/L (150-400)
[2016-10-21 16:09] LABS: Magnesium 2.1 mg/dL (1.6-2.6)
[2016-10-21 16:12] LABS: TROPONIN T < 0.010 ug/L (0.0-0.011)
--- NOTE | 2016-10-21 16:14 | CONS ---
[address] [address] CONSULTATION REPORT PATIENT: HILDA MARTINEZ : 1935 MR#: [id number] ADMIT: 10/20/2016 JOB ID: [id number] DATE OF SERVICE: 10/21/2016 NEUROLOGY PROGRESS NOTE: SUBJECTIVE: Staff have noticed a change in mental status and the patient appears to be more confused and is noted to have a greater degree of neglect of her left side, as well as less movement of her left side today. I reviewed testing that has been performed so far. An echo was performed but the report is still pending. 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 The etiology of the chronic occlusion is indeterminate, but likely atherosclerotic. Occlusion of the distal right anterior cerebral artery at the level of the proximal A2 segment with likely collateral flow distally from the left side. Short segment stenosis of approximately 50% to 60% in the M2 segment of the right middle cerebral artery. Short segment stenosis in the P2 segment of the right posterior cerebral artery at approximately 60% to 70%. The right occipital and posterior frontal lobe infarcts are again demonstrated. There was also noted to be a small amount of left subarachnoid hemorrhage redemonstrated along the temporal lobe. No definite new foci of hemorrhage. That was yesterday. Today we repeated the CT of her head. On today's CT of the head we do not see the hemorrhage that was seen the day before. Acute or subacute infarct involving the right occipital lobe without associated hemorrhagic conversion. Suggestion of a small amount of subarachnoid hemorrhage. There is noted to be evolution of mild edema associated with the medial right occipital stroke which has not developed evidence of hemorrhagic transformation. Mildly increased mass effect is noted. There is no definite identified focus of subarachnoid hemorrhage. There are several subtle areas of increased radiodensity along several left posterior temporal sulci, which could be more accurately assessed however by MR scan if clinically desired. Any blood products in the area can easily be identified during MR imaging. In summary, there is noted to be evolution of mild edema, mildly increased mass effect; however, no definite identified focus of subarachnoid hemorrhage. There has been a concern for possible falls and in light of this a mat has been placed on the right side of her bed. PHYSICAL EXAMINATION: Temperature 37.0, pulse 62, respiratory rate of 18, blood pressure 144/84, pulse oximetry 94% on room air. General: She is a well-developed, well-nourished woman in no acute distress. Head: Normocephalic, atraumatic. Neck: Supple. No carotid bruits were auscultated. Chest: Clear to auscultation. Heart: Regular rate and rhythm. Abdomen: Soft, nondistended, nontender. Extremities: No cyanosis, clubbing, or edema. NEUROLOGIC EXAMINATION: Mental status: She is awake, alert, and oriented x3. Speech clear and fluent, with intact comprehension. There was no aphasia. There is a prominent gaze preference to the right with neglect of the left side. She is able to identify her limbs as being her own and is able to tell me that is the left side of her body. Her extraocular muscles are full and conjugate, although there is definitely a right gaze preference. Cranial nerves: Pupils equal, round, and reactive to light and accommodation. Face appeared symmetrical. Facial sensation appeared intact to light touch and temperature. Auditory sensation was intact to finger rub. Palatal elevation was symmetrical. Tongue was midline. Sternocleidomastoid and trapezii were 5/5 bilaterally. Motor: Today, as compared to yesterday, there is a difference in motor ability. [employer] strength in the left hand is still 4/5. However, she is unable to touch her finger to her nose on the left side. She has at least 3/5 strength in the left upper extremity. She was unable to lift her left lower extremity against gravity. She has strength of at least 2/5 in the left lower extremity. Sensation was intact to light touch and temperature. Deep tendon reflexes diminished throughout. Plantars were flexor bilaterally. The visual field examination demonstrated a left homonymous hemianopsia. Gait was deferred. IMPRESSION: Cerebrovascular accident with right posterior cerebral artery occlusion resulting in acute ischemia involving the right parieto-occipital region, the right parahippocampal gyrus, and the superior margins of the right posterior frontal lobe. I reviewed all imaging studies performed so far today. The edema that is noted is commonly seen in the setting of an acute stroke such as the one that she has, with worsening edema noted to be a common manifestation of an acute stroke, which should peak within the first 3-5 days and then start improving. In light of this, I recommend a repeat CT of her head without contrast tomorrow morning. If indeed this is noted to continue to improve, then I would add Plavix 75 mg to aspirin 81 mg daily in light of the intracranial stenosis and extracranial stenosis that has been noted on her imaging studies. 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 There is noted to be a long segment occlusion of the proximal left vertebral artery with reconstitution distally at the level of C2. The right vertebral artery is patent. There is a diminutive distal left vertebral artery that joins with the right vertebral artery to form the basilar artery. There is focal narrowing in the medial basal artery of approximately 50%. There is persistent circulation with the right posterior cerebral artery supplied by the posterior communicating artery. There is a short-segment stenosis within the P2 segment of the right posterior cerebral artery with narrowing of approximately 60%-70%. The left posterior cerebral artery appears patent. Thus, it appears to me that the right vertebral artery is the dominant artery supplying the basilar artery, were there is focal narrowing in the mid basal artery of approximately 50%. In light of this degree of intracranial and extracranial stenosis, I do recommend dual antiplatelet therapy with aspirin 81 mg and Plavix 75 mg once it has been noted that the edema is improving, not progressing. This is due to the increased risk of intracranial hemorrhage which may be seen in the setting of the evolution of a stroke, such as this stroke given its size, within the first 3-5 days. From the perspective of the subarachnoid hemorrhage, I do believe it is safe to add Plavix; however, given the in increased risk of hemorrhagic conversion of her rather large stroke I would recommend at least waiting one more day for resolution, or at least a degree of improvement, in her edema prior to adding Plavix 75 mg. As should be noted above in the note, there is no evidence based on the CT angiogram of a dissection of the basilar artery or the vertebral artery. 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 In light of this, I would also continue with the stroke protocol of permissive hypertension and a gradual lowering of her blood pressure given the degree of intracranial and extracranial stenosis, and the hypothetical possibility of cerebral hypoperfusion if her blood pressure would drop too rapidly given the degree of intracranial and extracranial stenosis. RECOMMENDATIONS: Continue stroke protocol. Thank you, again, Dr. Singh, for allowing me to participate in the care of your patient. Please feel free to contact me if any questions or concerns. We will continue to follow.
--- NOTE | 2016-10-21 17:25 | NUR ---
Left side deficit patient has severe left side deficit, left arm and leg drift. visual gaze to the right and loss of left visual field. alert to self only. unable to identify time or place. 2 person max assist to chair for meals. left sided weakness worse this evening and has become unsafe getting out of bed. placed on bedrest. Dr Singh aware. continue to monitor.
--- NOTE | 2016-10-21 23:25 | PCM.PNMED ---
Subjective Date of Service Oct 21, 2016 Subjective Patient has lost some vision in her left peripheral field. She also has lost strength on her side including her left upper extremity and left lower extremity. Exam Vital Signs Vital Sign - Last Date Time Temp Pulse Resp B/P Pulse Ox O2 Delivery O2 Flow Rate FiO2 10/21/16 20:37 36.9 69 18 140/72 93 Room Air Intake and Output 10/20/16 10/20/16 10/21/16 Cumulative From/Thru 15:00 23:00 07:00 10/20/16 04:18 - 10/21/16 06:38 Intake Total 800 ml 300 ml 1100 ml Output Total 900 ml 500 ml 1700 ml Balance -100 ml -200 ml -600 ml Intake Oral 800 ml 300 ml 1100 ml Output Urine Total 900 ml 500 ml 1700 ml # Voids 1 2 3 # Bowel Movements 0 0 Exam Interval: Patient is in no apparent distress leaning to the right in bed today. HEENT: Head is atraumatic normocephalic. Eyes: Pupils are equally round and reactive to light and accommodation. Extraocular muscles are intact. Sclera are white anicteric. Subconjunctival mucosa is pink. Ears and nose are unremarkable. Oropharynx: There is no mucosal lesions, there is no thrush, there is no pharyngitis. Neck: Is supple, there are no nodes or masses or tenderness. Chest: Is clear to auscultation and percussion. There are no rales, rhonchi, wheezes or rubs. Heart: Rate , rhythm is regular. There is no murmur, rub or gallop. Abdomen: Good bowel sounds are present. Abdomen is soft, nontender, no organomegaly or masses were appreciated. Extremities: Are symmetrical and well perfused. There is no edema, there is no cellulitis, no rash. Neurologic: Patient exhibits left sided neglect. Her motor strength is 2+ in the left upper extremity, 5+ right upper extremity and 1-2 + left lower extremity. Patient's visual thompson are off. She has left homonymous austin- anopsia Psychiatric: Patients mood is calm and shows no sign of agitation. Genital: Deferred Rectal: Deferred Lab and Diagnostics Result Diagram: 10/21/16 1515 10/21/16 1515 X-Rays, CTs and MRIs PROCEDURE: CT ANGIO HEAD AND NECK (P) INDICATIONS: r/o dissection TECHNIQUE: Pre-contrast 4.5 mm thick sections acquired from the foramen magnum to the vertex. After the administration of intravenous contrast, 1 mm thick sections acquired from the aortic arch through the [place]. Post-contrast 4.5 mm thick sections then re-acquired from the foramen magnum to the vertex. 3- dimensional bumvebh-dvxoehalm-skjnqbstbp (MIP) and/or volume rendering reformats were acquired of the central intracranial vasculature and neck separately. For radiation dose reduction, the following was used: automated exposure control, adjustment of mA and/or kV according to patient size. COMPARISON: [facility], , MR STROKE PROTOCOL, 10/20/2016, 12:54. FINDINGS: Image quality: Excellent. BRAIN: CSF spaces: There is mild cerebral volume loss with prominence of the ventricles and sulci. Brain: There is a moderate sized infarct redemonstrated in the right occipital parietal lobe. There are also small infarcts along the posterior right frontal lobe demonstrated medially. Subtle subarachnoid hemorrhage along the posterior left temporal lobe is again noted. No new hemorrhage or mass effect compared to the recent study. A prior lacunar infarct redemonstrated in the right padilla radiata. Skull and face: Calvarium and facial bones appear intact, without suspicious lesions. Orbits appear normal. I Sinuses: Sinuses and mastoids are clear. HEAD CT ANGIOGRAPHY: Anterior circulation: Intracranial internal carotid arteries are patent bilaterally. There is occlusion of the right anterior cerebral artery at the level of the proximal A2 segment. There is likely collateral flow of the distal territories from the left side. The flow within the middle cerebral arteries is patent bilaterally with a short segment stenosis in the M2 segment of the right middle cerebral artery of approximately 50-60%. The anterior communicating artery is patent. No definite aneurysms. Posterior circulation: There is a diminutive distal left vertebral artery which joins with the right vertebral artery to form the basilar artery. There is focal narrowing in the mid basilar artery of approximately 50%. There is persistent circulation with the right posterior cerebral artery supplied by the posterior communicating artery. There is a short segment stenosis within the P2 segment of the right posterior cerebral artery with narrowing of approximately 60-70%. The left posterior cerebral artery appears patent. NECK CT ANGIOGRAPHY: Carotid system: The great vessels demonstrate conventional anatomy as they arise from the aortic arch. The origins of the common carotid arteries appear patent. The common carotid arteries demonstrate normal caliber and courses. The carotid bulbs appear widely patent. The internal carotid arteries demonstrate normal calibers and courses. Posterior circulation: The origin of the left vertebral artery is not well- visualized. There is a long segment occlusion of the proximal left vertebral artery with reconstitution distally at the level of C2. The right vertebral artery appears patent. Soft tissues: The thyroid is heterogeneous in appearance with small indistinct nodules bilaterally as well as multiple foci of calcifications. Bones: No suspicious bony lesions. There is straightening of the cervical lordosis with multilevel degenerative changes including severe disc space narrowing at C5-C6 with endplate osteophytosis and sclerosis. IMPRESSION: 1. 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 The etiology of the chronic occlusion is indeterminate but likely atherosclerotic. 2. Occlusion of the distal right anterior cerebral artery at the level of the proximal A2 segment with likely collateral flow distally from the left side. 3. Short segment stenosis of approximately 50-60% in the M2 segment of the right middle cerebral artery. 4. Short segment stenosis in the P2 segment of the right posterior cerebral artery of approximately 60-70%. 5. Right occipital and posterior frontal lobe infarcts redemonstrated as seen on the recent MRI. 5. Small amount of left subarachnoid hemorrhage redemonstrated along the temporal lobe. No definite new foci of hemorrhage. Dictated by: Bo Shepard M.D. on 10/20/2016 at 17:21 Approved by: Bo Shepard M.D. on 10/20/2016 at 17:21 PROCEDURE: MRI STROKE PROTOCOL ([id number]) Pre- and post-contrast brain MRI, non-contrast brain MR angiogram, pre- and postcontrast neck MR angiogram INDICATIONS: CT (+) stroke TECHNIQUE: Brain: Noncontrast axial T1 spin echo, axial T2 fast spin echo, sagittal and axial FLAIR, coronal T2 fast spin echo, axial gradient echo, axial diffusion and ADC through the brain. After the administration of contrast, axial 3D VIBE of the cranial vasculature and brain. Brain MRA: Non-contrast 3-D time of flight MR angiogram, with multiple maximum- intensity-projection (MIP) reformats performed. Neck MRA: Axial and sagittal TruFISP through the neck. Coronal dynamic MR angiogram during administration of contrast in the arterial and venous phases, with 3-dimenstional exjihnm-ffctunrqq-tqlbqzdspt (MIP) reformats constructed from subtraction images. COMPARISON: [facility], CT, CT BRAIN WO CON, 10/20/2016, 8:48. FINDINGS: Image quality: Diagnostic. BRAIN: Brain: There is no acute intra-axial hemorrhage. Subtle areas of increased flair signal are identified along the arachnoid space involving the left temporal occipital region (image 10, series 5), compatible with a subarachnoid hemorrhage comment especially when combined with the CT findings. No extra- axial fluid collection is identified. There is no midline shift or mass effect. The orbits are grossly unremarkable. There is a diffuse area of vague increased signal on the flair images involving the posterior right parieto- occipital region and posterior right frontal region near the convexity. Corresponding increased signal within these regions on the diffusion images is present. A small area of increased diffusion and flair signal is noted involving the parahippocampal gyrus is also present at the right temporal lobe. No hemorrhagic conversion is appreciated. Mild decreased enhancement involving these regions is present on the postcontrast images. Additional foci of increased flair signal within the deep white matter of the supratentorial brain are present. The midline intracranial structures are within normal limits. No parenchymal masses are identified. The ventricles and cortical sulci mildly prominent. Bones: The imaged osseous structures are grossly intact. No suspicious osseous lesions are identified. The included paranasal sinuses and mastoid air cells are clear. Extracranial soft tissues: The imaged overlying soft tissues of the face and head are grossly unremarkable. BRAIN MR ANGIOGRAM: Anterior circulation: Intracranial internal carotid arteries are normal in size and enhancement. The flow within the paired anterior cerebral arteries is normal and symmetric. The flow within the middle cerebral arteries is normal and symmetric. The anterior communicating artery is seen. No stenoses, occlusions, or aneurysms. Posterior circulation: The left vertebral artery is diminutive and likely occluded. There is irregularity of the basilar artery. Reduced or absent flow of the right posterior cerebral artery is present. A similar appearance is noted involving the right superior cerebellar artery. The left posterior cerebral artery and cerebellar arteries are patent and unremarkable. No aneurysms. NECK MR ANGIOGRAM: Carotids: Great vessels demonstrate a conventional anatomy as they arise from the aortic arch. The origins of the common carotid arteries appear patent. The calibers and courses of both common carotid arteries are normal. The bifurcation regions appear normal bilaterally. The internal carotid arteries demonstrate normal course and caliber. Posterior circulation: The right vertebral artery is normal in course and caliber without definite high grade narrowing appreciated. There is mild atherosclerotic irregularity along the origin of the right vertebral artery. Mild tortuosity of the vertebral artery is present. The left vertebral artery is occluded from the level of the origin. Only minimal flow is seen within the distal aspect of the left vertebral artery near the basilar artery, which may be related to collateral vessels or retrograde flow from the right vertebral artery/basilar artery. Miscellaneous: Subclavian arteries appear patent. Pre-contrast images through the neck show no soft tissue abnormalities. IMPRESSION: BRAIN MRI: 1. Right posterior cerebral artery infarction with acute ischemia noted involving the right parietal-occipital region, the right parahippocampal gyrus and superior margins of the right posterior frontal lobe. No hemorrhagic conversion is evident involving these infarcted regions. 2. Small subarachnoid hemorrhage overlying the left temporal occipital region is unusual in the setting of stroke. Please correlate clinically for possible recent head trauma. Followup CT imaging would be of value. 3. Chronic small vessel ischemic changes. 4. Mild parenchymal volume loss. BRAIN MR ANGIOGRAM: 1. Occluded right posterior cerebral artery. Diminutive flow versus occlusion of the right superior cerebellar artery. 2. Irregularity of the basilar artery is suspicious for a dissection. There is no aneurysm. 3. The anterior circulation of the brain is within normal limits. NECK MR ANGIOGRAM: 1. Occluded left vertebral artery is suspicious for dissection. However, chronic long-standing occlusion or occlusion related to atherosclerosis cannot be excluded. 2. Mild atherosclerosis of the origin of the right vertebral artery with mild tortuosity of the vessel without occlusion or high-grade narrowing. 3. No significant atherosclerosis of the bilateral common carotid arteries or internal carotid arteries. There is no aneurysms, high-grade stenoses, or occlusions. Note: These findings were discussed with Dr. Singh at 1425 hours (PST) on 10/20. The estimate of stenosis included in the report of the imaging study was calculated using the NASCET method Dictated by: Jose Enrique Diaz M.D. on 10/20/2016 at 13:31 Approved by: Jose Enrique Diaz M.D. on 10/20/2016 at 13:31 PROCEDURE: CT BRAIN WITHOUT CONTRAST ([id number]) INDICATIONS: Weakness and left neglect TECHNIQUE: Noncontrast 4.5 mm thick angled axial sections acquired from the foramen magnum to the vertex, with coronal reformats. COMPARISON: [facility], CT, CT HEAD WO CONTRAST, 06/02/2016, 9:49 PM. FINDINGS: Image quality: Excellent. CSF spaces: Basal cisterns are patent. The ventricles are symmetric in size and shape. There is mild cerebral volume loss, with resultant ventricular and sulcal prominence. Brain: There is effacement of garner-white matter differentiation as well as cortical and subcortical hyperattenuation involving a moderate sized region in the medial right occipital lobe consistent with an acute to subacute infarct. No associated hemorrhagic conversion. However, within the posterior left temporal lobe, there is subtle high attenuation along a few sulci suspicious for a small amount of subarachnoid hemorrhage. In the right padilla radiata, there is an indistinct hypodensity which is new from the prior study and suggestive of a lacunar infarct of indeterminate acuity. There are also subcortical, periventricular and deep white matter hypodensities consistent with mild to moderate chronic small vessel ischemic changes. There is intracranial internal carotid artery atherosclerosis. Skull and face: Calvarium and visualized facial bones appear intact, without suspicious lesions. Sinuses: Visualized sinuses and mastoids are clear. IMPRESSION: 1. Acute or subacute infarct involving the right occipital lobe without associated hemorrhagic conversion. 2. Suggestion of a small amount of subarachnoid hemorrhage along the posterior left temporal lobe. 3. Small hypodensity in the right padilla radiata compatible with a small lacunar infarct of indeterminate acuity. 4. Mild cerebral volume loss and chronic white matter small vessel ischemic changes. Recommend further evaluation with MRI if clinically indicated. Dictated by: Bo Shepard M.D. on 10/20/2016 at 9:37 Approved by: Bo Shepard M.D. on 10/20/2016 at 9:37 PROCEDURE: X-RAY CHEST ONE VIEW, PORTABLE ([id number]) INDICATIONS: Weakness TECHNIQUE: One view of the chest was acquired. COMPARISON: [facility], CR, XR CHEST 1V PORTABLE, 06/02/2016, 8: 37 PM. FINDINGS: Surgical changes and devices: None. Lungs and pleura: The patient limited by patient rotation. No definite pleural effusions or pneumothorax. No definite consolidation. There is a nodular opacity in the left superhilar region likely corresponding to complement vascular structures. Mediastinum: Heart size is enlarged. Bones and chest wall: No suspicious bony lesions. Overlying soft tissues appear unremarkable. IMPRESSION: 1. Limited study due to patient rotation demonstrates no definite consolidation. Recommend repeat study if clinical concern persists. 2. Cardiomegaly. Dictated by: Bo Shepard M.D. on 10/20/2016 at 12:05 Approved by: Bo Shepard M.D. on 10/20/2016 at 12:05 PROCEDURE: CT BRAIN WITHOUT CONTRAST ([id number]) INDICATIONS: Follow up for SAH TECHNIQUE: Noncontrast 4.5 mm thick angled axial sections acquired from the foramen magnum to the vertex, with coronal reformats. COMPARISON: [facility], CT, CT BRAIN WO CON, 10/20/2016, 8:48. FINDINGS: Image quality: Excellent. CSF spaces: Basal cisterns are patent. No extra-axial fluid collections. The ventricles are symmetric in size and shape. Brain: No definite intracranial bleeds or masses but there is mild interval increased mass effect from the medial right posterior occipital infarction, effacing the occipital horn of the right lateral ventricle to a greater degree. No hemorrhagic transformation of this infarction is found. The subtle areas of mild elevated radiodensity at several sulci of the posterior left temporal lobe do not reach the threshold for diagnosis of subarachnoid hemorrhage. There is cerebral volume loss for age, with resultant ventricular and sulcal prominence. There are periventricular and deep white matter chronic small vessel ischemic changes. There is intracranial internal carotid artery atherosclerosis. Skull and face: Calvarium and visualized facial bones appear intact, without suspicious lesions. Sinuses: Visualized sinuses and mastoids are clear. IMPRESSION: Evolution of mild edema associated with a medial right occipital stroke, which has not developed evidence of hemorrhagic transformation. Mild increased mass effect associated, as noted. There is no definite identified focus of subarachnoid hemorrhage. The several subtle areas of increased radiodensity along several left posterior temporal sulci could be more accurately assessed, however, by MR scanning if clinically desired. Any blood products in that area be easily identifiable during MR imaging. Dictated by: Yordy Vilchis M.D. on 10/21/2016 at 11:39 Approved by: Yordy Vilchis M.D. on 10/21/2016 at 11:39 Assessment & Plan The patient is a pleasant 81-year-old, right-handed woman with multiple medical problems who reportedly experienced sudden onset of left-sided weakness and neglect. She was initially seen at [facility] and then transferred here. Reportedly she has a history of prior transient ischemic attacks in the past. She reports that her left knee buckled at home when using her walker. She lives with her daughter. She has had she reports 5-6 falls over the last week and has been seeing a physical therapist. She does not recall hitting her head. She describes the sudden onset of weakness of her left leg. Patient was admitted directly to the hospital service for further evaluation and treatment. # Patient has suffered a vascular accident. -Neurology was consulted and patient was seen with neurologist Dr. Riaz Marcano. His assessment and recommendations are as follows: "IMPRESSION: Cerebrovascular accident involving the right posterior cerebral artery with occlusion of the right posterior cerebral artery. It is unclear if this is secondary to artery to artery embolism, versus a left vertebral artery dissection with associated dissection of the basilar artery, versus a cardioembolic etiology. There is acute ischemia involving the right parieto-occipital region, the right parahippocampal gyrus, and the superior margins of the right posterior frontal lobe. I do recommend continuing aspirin 325 mg daily. I do recommend a repeat CT of her head without contrast to be performed tomorrow morning. If this does not show any change in the size of her subarachnoid hemorrhage she may benefit from the addition of Plavix 75 mg daily given the concern for intracranial stenosis/dissection of the basilar artery. It is unclear if this is secondary to atherosclerotic disease resulting in high-grade narrowing versus dissection. In any case, the presence of atherosclerotic disease resulting in intracranial stenosis would warrant dual antiplatelet therapy. In the event that this is secondary to a dissection, she may benefit from dual antiplatelet therapy as well. Another possibility if the dissection is confirmed is anticoagulation. However, I would recommend first obtaining the CT of her brain without contrast tomorrow morning to assess the status of the subarachnoid hemorrhage, and then obtaining a CT angiogram of her head and neck to further assess the abnormalities appreciated on the neck and brain magnetic resonance angiogram to further clarify if indeed the irregularities present represent either high-grade atherosclerotic disease/stenosis versus dissection. In the event that the subarachnoid hemorrhage is noted to have progressed or worsened on the repeat CT of her head with contrast tomorrow morning, I will contact [facility] or [place] for a possible transfer consultation. I would continue to optimize control of her stroke risk factors in this case including diabetes, hypertension, and hyperlipidemia, as well as obesity. She does not smoke." # Increased cerebral edema secondary to above - Patient has worsening of neurologic symptoms today due to the cerebral edema. - We will therefore repeat CT scan in a.m. - We will hold Plavix at this time - Discussed this with Dr. Blakely and he believes that this will improve with time. # Hypertension. -Continue lisinopril, metoprolol is at home for now. # Diabetes mellitus type 2. -Continue glimepiride and metformin. # Hyperlipidemia. -Continue simvastatin. # Antibiotic therapy. The patient is on fluconazole and Bactrim at this time for unclear reasons that she is unable to describe. I suspect this is for a recent urinary tract infection Disposition: Patient will require PT OT and speech therapy and likely will need placement in a rehabilitation center. Will discuss further plans with Dr. Blakely. Pain Evaluation: Adequate Pain Control GI Prophylaxis: Proton Pump Inhibitor VTE Prophylaxis: Sub-Q Enoxaparin Resuscitation Status: CPR: Attempt Resuscitation Roberto Singh MD Oct 21, 2016 23:25
[2016-10-22] VITALS (9 sets, daily range): BP systolic 132–163; BP diastolic 66–85; PULSE 61–71; RESP 16–18; O2SAT 92–95
--- NOTE | 2016-10-22 05:56 | NUR ---
Left side flaccid: Pt's left arm and leg are flaccid. Pt is aware of left extremities, and when palpated, can tell me where she is being touch, "your tapping on the top of my left foot". When pt is asked to roll picker left arm, will reach over with right arm. Night hospitalist was made aware. Pt is scheduled to have a repeat CT this morning. Has been alert and oriented to name, birthday, and year 2013. Is pulling at tubes, frequently take off tele and was able to d/c IV, which was in the right arm. Tele and IV replaced as needed.
[2016-10-22 07:26] LABS: BASOPHILS % (AUTO) 0.2 % (0-3); EOSINOPHILS % (AUTO) 0.3 % (0-5); MONOCYTES % (AUTO) 31.6 % (4-12); Mean Corpuscular Hemoglobin 28.9 pg (27.0-35.0); Mean Corpuscular Volume 83.6 fL (81-100); NEUTROPHILS % (AUTO) 46.5 % (40-74); Platelet Count 175 bil/L (150-400)
[2016-10-22 07:35] LABS: Magnesium 1.9 mg/dL (1.6-2.6)
[2016-10-22] MEDS: Pantoprazole 40 mg ER24 Tablet PO SCH (08:32)
[2016-10-22] MEDS: Trimethoprim-Sulfa 160 mg-800 mg Tablet PO SCH ×2 (08:32→21:07)
[2016-10-22] MEDS: MeTOProlol XL 25 mg ER24 Tablet PO SCH (08:32)
--- NOTE | 2016-10-22 08:36 | DRSVH ---
PROCEDURE: CT BRAIN WITHOUT CONTRAST ([id number]) INDICATIONS: Follow up for edema and SAH/CVA TECHNIQUE: Noncontrast 4.5 mm thick angled axial sections acquired from the foramen magnum to the vertex, with c oronal reformats. COMPARISON: [facility], CT, CT BRAIN WO CON, 10/20/2016, 8:48. Located [facility], M R, MR STROKE PROTOCOL, 10/20/2016, 12:54. Located [facility], CT, CT ANGIO BRAIN AND NECK, 10/20/ 017, 16:15. Located [facility], CT, CT BRAIN WO CON, 10/21/2016, 11:20. FINDINGS: Image quality: There is mild motion artifact. CSF spaces: Basal cisterns are patent. There is mild cerebral volume loss, with resultant ventricul ar and sulcal prominence. Brain: There is progressive increase in size and hypodensity of the previously described areas of in farction involving the right occipital lobe, posterior temporal lobe, medial posterior frontal lobe, and medial frontal lobe. No definite evidence of hemorrhagic conversion within these regions. A sma ll amount of subarachnoid hemorrhage is again noted along the left temporal lobe best seen on the kulwinder or studies. Skull and face: Calvarium and visualized facial bones appear intact, without suspicious lesions. Sinuses: Visualized sinuses and mastoids are clear. IMPRESSION: 1. Progressive evolution of multiple right sided infarcts as described without definite evidence of hemorrhagic conversion. 2. Small amount of subarachnoid hemorrhage redemonstrated along the left temporal lobe. Dictated by: Bo Sehpard M.D. on 10/22/2016 at 8:35 Approved by: Bo Shepard M.D. on 10/22/2016 at 8:35
--- NOTE | 2016-10-22 10:08 | NUR ---
Evaluation completed. Please go to "Notes" then click on "Assessments and Notes" (bottom left corner of screen). Then select appropriate discipline tab on top of screen.
--- NOTE | 2016-10-22 10:22 | NUR ---
[facility] Signed [id number]
--- NOTE | 2016-10-22 10:58 | NUR ---
Rosalina Mayfield can accept with Dr. Whitley to follow. ASHLYN also spoke with [facility], they are reviewing case and will get back to ASHLYN. ZULEIMA Gordon
--- NOTE | 2016-10-22 14:19 | NUR ---
spiritual care: pt request caring conversational visit with pt and dtr Allison. both reflected on feelings around doctor's report and 's , pt reminisced a little. waiting for more medical information, keeping hopeful. prayer
--- NOTE | 2016-10-22 15:00 | NUR ---
NUTRITION ASSESSMENT ASSESS: Pt is a 81yo female admitted for weakness on the left side of her body. Pt reported falling 5-6 times in the previous week. CT and MRI demonstrated pt experienced CVA, with resulting weakness on the left side. Pt is alert and oriented to self. PMHX: , hysterectomy, depression, HTN, Type II DM, HLD, Obesity, TIAs LABS: K 5.5, Gluc 156 MEDS: Lipitor, Lisinopril, MVI GI: 0 BM SKIN: Nehemiah 23 CURRENT WT: 93.5 kg BMI: 36.5 kg/m2 IBW: 52.3 kg DIET: Soft, Heart Healthy, Diabetic - PO Intake 25-90% EST. NEEDS: BMI (30-40) Kcals: 1433-0015 kcal/day (20-22 kcal/kg BW) Pro: 65-80g (1.2-1.5g/kg IBW) NUTRITION DIAGNOSIS: 1.) Inadequate oral intake related to difficulty feeding oneself per ST evaluation and left-sided weakness as evidenced by PO intake 25-90%. NUTRITION INTERVENTION: 1.) Add Ensure supplement to L&D trays to help ensure adequate kcal and protein intake. MONITOR / EVAL: Diet adv/mike, PO intake, wt, labs, POC. Will continue to monitor per moderate nutritional risk guidelines. Addendum: 10/22/16 at [address] Auxiliary student documentation reviewed. I agree with above documentation. Tal Kulkarni, EMMA, CD Addendum: 10/22/16 at [address] Will add Glucerna supplements on L/D trays instead of ensure as pt has history of diabetes.
--- NOTE | 2016-10-22 15:56 | DRSVH ---
[facility] [address] [place] [address] Echocardiogram Report Name: HILDA MARTINEZ YStudy Date: 10/22/2016 Height: 63 in Hospital Exam Location: [facility] Weight: 206 lb Gender: Female BSA: 2.0 m2 : 1935 Age: 81 yrs BP: 163/ 69 mmHg Reason For Study: CVA Ordering Physician: HOSPITALIST [facility] Performed By: Nima Daley Referring Physician: PAULINA RICE Interpretation Summary Left ventricular wall thickness is mildly increased. The ejection fraction is estimated to be 60-65%. There appears to be focal mid RV free wall hypertrophy. Consider cardiac MRI to evaluate this further, if clinically indicated The interatrial septum is intact with no evidence for an atrial septal defect. The right ventricular systolic pressure is estimated at 29 mmHg assuming a right atrial pressure of 3 mm Hg. There is no obvious cardiac source of embolus noted on this transthoracic echocardiogram. Follow-up with a FARHAD is suggested if cardiac source is still suspected. Procedure: A two-dimensional transthoracic echocardiogram with color flow and Doppler was performed. The study quality was technically adequate. There is no prior echocardiogram noted for this patient. The patient was in normal sinus rhythm during the exam. Left Ventricle: The left ventricle is normal in size. Left ventricular wall thickness is mildly increased. The ejection fraction is estimated to be 60- 65%. Right Ventricle: The right ventricle is normal in size and function. There appears to be focal mid RV free wall hypertrophy. Consider cardiac MRI to evaluate this further, if clinically indicated. Atria: The left atrium is borderline dilated. Right atrial size is normal. The interatrial septum is intact with no evidence for an atrial septal defect. Mitral Valve: The mitral valve leaflets appear borderline thickened, but open well. There is moderate mitral annular calcification. There is trace mitral regurgitation. Aortic Valve: The aortic valve is grossly normal. No aortic regurgitation is present. Tricuspid Valve: The tricuspid valve is normal. There is a trace or physiologic amount of tricuspid regurgitation. The right ventricular systolic pressure is estimated at 29 mmHg assuming a right atrial pressure of 3 mm Hg. Pulmonic Valve: The pulmonic valve is not well visualized. Great Vessels: The aortic root is normal size. The aortic arch is mildly enlarged. The pulmonary artery is normal size. The IVC is of normal diameter and collapses greater than 50% with a sniff. This suggests a low right atrial pressure of 3 mm Hg. Pericardium/ Pleura There is an anterior echo-free space consistent with a fat pad. There is no pericardial effusion. There is no pleural effusion. MMode/2D Measurements & Calculations LVIDd: 4.9 cm LA A2 area RA long axis LVOT diam: 2.1 cm IVSd: 1.1 cm Ao root diam: 3.0 cm LVPWd: 0.97 cm RA area asc Aorta Diam: 3.7 cm LA A4 area Ao Arch Diam (Proximal : 11.6 cm trans.): 2.1 cm LA length (vol) RA vol : 22.4 ml LA vol: 33.7 ml RA LA vol index : 11.5 mm2 : 17.2 ml/m2 LV raygoza. diameter/BSA (cm/m^2): 2.5 Doppler Measurements & Calculations Ao V2 max MV E max bubba MV E/A: 0.54 TR max bubba : 153.9 cm/sec : 77.8 cm/sec Med Peak E' Bubba : 256.4 cm/sec Ao max P.5 mmHg MV A max bubba TR max PG Ao mean P.8 mmHg : 143.3 cm/sec E/E' med: 26.4 : 26.3 mmHg LVOT Max Bubba Lat Peak E' Bubba PA V2 max : 109.9 cm/sec MVA(VTI): 2.2 cm2 : 103.9 cm/sec E/E' lat: 23.8 PA mean PG DOIDE(I,D): 3.0 cm : 2.4 mmHg sev ratio: 0.85 MV V2 mean Ao V2 mean LV V1 max PG PA V2 mean : 85.3 cm/sec : 115.5 cm/sec : 73.7 cm/sec MV mean P.4 mmHg Ao V2 VTI: 30.4 cmLV V1 VTI PA pr(Accel) MV V2 VTI: 41.9 cm DODIE(V,D): 2.5 cm2 : 25.7 cm : 52.5 mmHg MV dec time: 0.41 sec DODIE indexed to BSA E/e' average (cm^2/m^2): 1.5 : 25.1 Electronically signed by: Rickie Miller on Reading Physician:10/22/2016 03:55 PM
--- NOTE | 2016-10-22 18:02 | NUR ---
Headaches Pt reported a strong headache 8/10 2x today. Administered Tylenol for pain control. Pt reports that pain is gone after medication. VSS, neuro checks maintaining, no s/sx of repeat hemorrhagic stroke.
--- NOTE | 2016-10-22 20:38 | CONS ---
[address] [address] CONSULTATION REPORT PATIENT: HILDA MARTINEZ : 1935 MR#: [id number] ADMIT: 10/20/2016 JOB ID: [id number] DATE OF SERVICE: 10/22/2016 SUBJECTIVE: Again, the patient noted to have a greater degree of neglect of her left side than when she came into the hospital with less movement of the left side of her body. Reviewed repeat CT of head today demonstrating progressive evolution of multiple right-sided infarcts without definite evidence of hemorrhagic conversion. A small amount of subarachnoid hemorrhage demonstrated along the left temporal lobe. An echocardiogram was performed, demonstrating left ventricular wall thickness as mildly increased. Ejection fraction estimated to be 60% to 65%. There appears to be focal mid right ventricle free wall hypertrophy. Consider cardiac MRI to evaluate this further if clinically indicated. The interatrial septum is intact with no evidence for an atrial septal defect. The right ventricular systolic pressure is estimated 29 mmHg assuming a right atrial pressure of 3 mmHg. There is no obvious cardiac source of embolus noted on this transthoracic echocardiogram. Follow up with a FARHAD is suggestive if cardiac source is suspected. OBJECTIVE: Vital signs: Temperature 36.9, pulse of 61, respiratory rate of 16, blood pressure 132/66, pulse oximetry 92% on room air. General: She is a well-developed, well-nourished woman in no acute distress. Head: Normocephalic, atraumatic. Neck is supple. No carotid bruits were auscultated. Chest: Clear to auscultation. Heart: Regular rate and rhythm. Abdomen: Soft, nondistended, nontender. Extremities: No cyanosis, clubbing, or edema. NEUROLOGIC EXAMINATION: Mental status: She is awake, alert, oriented x3. Speech is clear and fluent with intact comprehension. There was no aphasia. There was a prominent gaze preference to the right with neglect of the left side. Cranial nerves: Pupils equal, round, and reactive to light and accommodation. Face appears symmetrical. Facial sensation is intact to light touch and temperature. There is a left homonymous hemianopsia noted. There is a right gaze preference noted. Auditory sensation was intact to finger rub bilaterally. Palatal elevation was symmetrical. Tongue was midline. Sternocleidomastoid and trapezii were 5/5 bilaterally. Motor: Today again just as yesterday there is noted to be what appears to be increased weakness of the left upper and left lower extremities. She was able to wiggle the toes of her left foot, however, was unable to move her left upper extremity against gravity or sustain it. Sensation was intact to light touch and temperature. Deep tendon reflexes were diminished throughout. There was a positive Babinski on the left. Gait was deferred. IMPRESSION: Cerebrovascular accident with right posterior cerebral artery occlusion resulting in acute ischemia involving the right parieto-occipital region, the right hippocampal gyrus and the superior margins of the right posterior frontal lobe. I explained to the daughter that I suspect that this is the natural evolution of her stroke with the peak associated swelling with a stroke seen within the 1st 3-5 days with gradual reduction in swelling and edema as the n eight-the natural progression of a stroke. I reviewed the 2D echocardiogram result. So far telemetry has not revealed any evidence of any cardiac arrhythmias such as atrial fibrillation. I recommend a CT of her head without contrast to be performed tomorrow morning. If there is no evidence of hemorrhagic conversion, I do recommend adding Plavix 75 mg given the degree of intracranial and extracranial stenosis noted. Given the location of her stroke though, I do recommend excluding a cardiac etiology. She would benefit from a transesophageal echocardiogram as well as continued telemetry monitoring and perhaps even monitoring with a ZIO patch as an outpatient to exclude the possibility of paroxysmal atrial fibrillation. 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 I do recommend continuing stroke protocol. Continue physical therapy/occupational therapy. As noted in the computed tomography scan of her brain without contrast, there has been progressive increase in the size in hypodensity of the previously described areas of infarction involving the right occipital lobe, posterior temporal lobe, medial and posterior frontal lobe and medial frontal lobe. No definitive evidence of hemorrhagic conversion was noted within these regions. A small amount of subarachnoid hemorrhage was noted in the left temporal lobe likely secondary to trauma. If her repeat CT of the head without contrast tomorrow morning demonstrates stability with no increase in the edema and demonstrates no change in the size of the subarachnoid hemorrhage for resolution of the subarachnoid hemorrhage, then I would add Plavix 75 mg daily. Incidentally, if there is any change in mental status I would recommend a stat CT of her head without contrast. Continue stroke protocol. Continue to optimize control of stroke risk factors. Today's NIH stroke scale is a 1 for best gaze given that she has a partial gaze palsy, a 2 for complete hemianopsia, a 3 for left upper extremity and a 3 for left lower extremity. Limb ataxia could not be assessed due to the above noted and a 1 for neglect. She was able to recognize her own hands today. Will continue to follow. Thank you, again, Dr. Singh, for allowing me to participate in the care of your patient. Please feel free to contact me with any questions or concerns.
[2016-10-23] VITALS (8 sets, daily range): BP systolic 116–153; BP diastolic 61–102; PULSE 65–79; RESP 16–18; O2SAT 93–97
--- NOTE | 2016-10-23 | PCM.PNMED ---
Subjective Date of Service Oct 22, 2016 Subjective Patient is weaker on the left side today and is more despondent. Exam Vital Signs Vital Sign - Last Date Time Temp Pulse Resp B/P Pulse Ox O2 Delivery O2 Flow Rate FiO2 10/22/16 20:55 37.1 64 18 141/85 95 Room Air Intake and Output 10/21/16 10/21/16 10/22/16 Cumulative From/Thru 15:00 23:00 07:00 10/20/16 04:18 - 10/22/16 06:14 Intake Total 600 ml 0 ml 1700 ml Output Total 1700 ml Balance 600 ml 0 ml 0 ml Intake Oral 600 ml 0 ml 1700 ml Output Urine Total 1700 ml # Voids 6 3 12 # Bowel Movements 0 Exam Interval: Patient is in no apparent distress. However, she appears more despondent due to her increased disability HEENT: Head is atraumatic normocephalic. Eyes: Pupils are equally round and reactive to light and accommodation. Extraocular muscles exhibit a right lateral gaze. Sclera are white anicteric. Subconjunctival mucosa is pink. Ears and nose are unremarkable. Oropharynx: There is no mucosal lesions, there is no thrush, there is no pharyngitis. Neck: Is supple, there are no nodes or masses or tenderness. Chest: Is clear to auscultation and percussion. There are no rales, rhonchi, wheezes or rubs. Heart: Rate , rhythm is regular. There is no murmur, rub or gallop. Abdomen: Good bowel sounds are present. Abdomen is soft, nontender, no organomegaly or masses were appreciated. Extremities: Are symmetrical and well perfused. There is no edema, there is no cellulitis, no rash. Neurologic: Patient exhibits left sided neglect. Her motor strength is 2+ in the left upper extremity, 5+ right upper extremity and 1-2 + left lower extremity. Patient's visual thompson are off. She has left homonymous austin- anopsia and right lateral gaze. Psychiatric: Patients mood is calm and shows no sign of agitation. She does appear more despondent. Genital: Deferred Rectal: Deferred Lab and Diagnostics Result Diagram: 10/22/16 0612 10/22/16 0612 X-Rays, CTs and MRIs PROCEDURE: CT ANGIO HEAD AND NECK (P) INDICATIONS: r/o dissection TECHNIQUE: Pre-contrast 4.5 mm thick sections acquired from the foramen magnum to the vertex. After the administration of intravenous contrast, 1 mm thick sections acquired from the aortic arch through the [place]. Post-contrast 4.5 mm thick sections then re-acquired from the foramen magnum to the vertex. 3- dimensional oyfrvpf-phvzvajyj-gplfigzcrf (MIP) and/or volume rendering reformats were acquired of the central intracranial vasculature and neck separately. For radiation dose reduction, the following was used: automated exposure control, adjustment of mA and/or kV according to patient size. COMPARISON: [facility], , MR STROKE PROTOCOL, 10/20/2016, 12:54. FINDINGS: Image quality: Excellent. BRAIN: CSF spaces: There is mild cerebral volume loss with prominence of the ventricles and sulci. Brain: There is a moderate sized infarct redemonstrated in the right occipital parietal lobe. There are also small infarcts along the posterior right frontal lobe demonstrated medially. Subtle subarachnoid hemorrhage along the posterior left temporal lobe is again noted. No new hemorrhage or mass effect compared to the recent study. A prior lacunar infarct redemonstrated in the right padilla radiata. Skull and face: Calvarium and facial bones appear intact, without suspicious lesions. Orbits appear normal. I Sinuses: Sinuses and mastoids are clear. HEAD CT ANGIOGRAPHY: Anterior circulation: Intracranial internal carotid arteries are patent bilaterally. There is occlusion of the right anterior cerebral artery at the level of the proximal A2 segment. There is likely collateral flow of the distal territories from the left side. The flow within the middle cerebral arteries is patent bilaterally with a short segment stenosis in the M2 segment of the right middle cerebral artery of approximately 50-60%. The anterior communicating artery is patent. No definite aneurysms. Posterior circulation: There is a diminutive distal left vertebral artery which joins with the right vertebral artery to form the basilar artery. There is focal narrowing in the mid basilar artery of approximately 50%. There is persistent circulation with the right posterior cerebral artery supplied by the posterior communicating artery. There is a short segment stenosis within the P2 segment of the right posterior cerebral artery with narrowing of approximately 60-70%. The left posterior cerebral artery appears patent. NECK CT ANGIOGRAPHY: Carotid system: The great vessels demonstrate conventional anatomy as they arise from the aortic arch. The origins of the common carotid arteries appear patent. The common carotid arteries demonstrate normal caliber and courses. The carotid bulbs appear widely patent. The internal carotid arteries demonstrate normal calibers and courses. Posterior circulation: The origin of the left vertebral artery is not well- visualized. There is a long segment occlusion of the proximal left vertebral artery with reconstitution distally at the level of C2. The right vertebral artery appears patent. Soft tissues: The thyroid is heterogeneous in appearance with small indistinct nodules bilaterally as well as multiple foci of calcifications. Bones: No suspicious bony lesions. There is straightening of the cervical lordosis with multilevel degenerative changes including severe disc space narrowing at C5-C6 with endplate osteophytosis and sclerosis. IMPRESSION: 1. 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 The etiology of the chronic occlusion is indeterminate but likely atherosclerotic. 2. Occlusion of the distal right anterior cerebral artery at the level of the proximal A2 segment with likely collateral flow distally from the left side. 3. Short segment stenosis of approximately 50-60% in the M2 segment of the right middle cerebral artery. 4. Short segment stenosis in the P2 segment of the right posterior cerebral artery of approximately 60-70%. 5. Right occipital and posterior frontal lobe infarcts redemonstrated as seen on the recent MRI. 5. Small amount of left subarachnoid hemorrhage redemonstrated along the temporal lobe. No definite new foci of hemorrhage. Dictated by: Bo Shepard M.D. on 10/20/2016 at 17:21 Approved by: Bo Shepard M.D. on 10/20/2016 at 17:21 PROCEDURE: MRI STROKE PROTOCOL ([id number]) Pre- and post-contrast brain MRI, non-contrast brain MR angiogram, pre- and postcontrast neck MR angiogram INDICATIONS: CT (+) stroke TECHNIQUE: Brain: Noncontrast axial T1 spin echo, axial T2 fast spin echo, sagittal and axial FLAIR, coronal T2 fast spin echo, axial gradient echo, axial diffusion and ADC through the brain. After the administration of contrast, axial 3D VIBE of the cranial vasculature and brain. Brain MRA: Non-contrast 3-D time of flight MR angiogram, with multiple maximum- intensity-projection (MIP) reformats performed. Neck MRA: Axial and sagittal TruFISP through the neck. Coronal dynamic MR angiogram during administration of contrast in the arterial and venous phases, with 3-dimenstional flbxyfv-fswdjqijz-ttqqbwtvlo (MIP) reformats constructed from subtraction images. COMPARISON: [facility], CT, CT BRAIN WO CON, 10/20/2016, 8:48. FINDINGS: Image quality: Diagnostic. BRAIN: Brain: There is no acute intra-axial hemorrhage. Subtle areas of increased flair signal are identified along the arachnoid space involving the left temporal occipital region (image 10, series 5), compatible with a subarachnoid hemorrhage comment especially when combined with the CT findings. No extra- axial fluid collection is identified. There is no midline shift or mass effect. The orbits are grossly unremarkable. There is a diffuse area of vague increased signal on the flair images involving the posterior right parieto- occipital region and posterior right frontal region near the convexity. Corresponding increased signal within these regions on the diffusion images is present. A small area of increased diffusion and flair signal is noted involving the parahippocampal gyrus is also present at the right temporal lobe. No hemorrhagic conversion is appreciated. Mild decreased enhancement involving these regions is present on the postcontrast images. Additional foci of increased flair signal within the deep white matter of the supratentorial brain are present. The midline intracranial structures are within normal limits. No parenchymal masses are identified. The ventricles and cortical sulci mildly prominent. Bones: The imaged osseous structures are grossly intact. No suspicious osseous lesions are identified. The included paranasal sinuses and mastoid air cells are clear. Extracranial soft tissues: The imaged overlying soft tissues of the face and head are grossly unremarkable. BRAIN MR ANGIOGRAM: Anterior circulation: Intracranial internal carotid arteries are normal in size and enhancement. The flow within the paired anterior cerebral arteries is normal and symmetric. The flow within the middle cerebral arteries is normal and symmetric. The anterior communicating artery is seen. No stenoses, occlusions, or aneurysms. Posterior circulation: The left vertebral artery is diminutive and likely occluded. There is irregularity of the basilar artery. Reduced or absent flow of the right posterior cerebral artery is present. A similar appearance is noted involving the right superior cerebellar artery. The left posterior cerebral artery and cerebellar arteries are patent and unremarkable. No aneurysms. NECK MR ANGIOGRAM: Carotids: Great vessels demonstrate a conventional anatomy as they arise from the aortic arch. The origins of the common carotid arteries appear patent. The calibers and courses of both common carotid arteries are normal. The bifurcation regions appear normal bilaterally. The internal carotid arteries demonstrate normal course and caliber. Posterior circulation: The right vertebral artery is normal in course and caliber without definite high grade narrowing appreciated. There is mild atherosclerotic irregularity along the origin of the right vertebral artery. Mild tortuosity of the vertebral artery is present. The left vertebral artery is occluded from the level of the origin. Only minimal flow is seen within the distal aspect of the left vertebral artery near the basilar artery, which may be related to collateral vessels or retrograde flow from the right vertebral artery/basilar artery. Miscellaneous: Subclavian arteries appear patent. Pre-contrast images through the neck show no soft tissue abnormalities. IMPRESSION: BRAIN MRI: 1. Right posterior cerebral artery infarction with acute ischemia noted involving the right parietal-occipital region, the right parahippocampal gyrus and superior margins of the right posterior frontal lobe. No hemorrhagic conversion is evident involving these infarcted regions. 2. Small subarachnoid hemorrhage overlying the left temporal occipital region is unusual in the setting of stroke. Please correlate clinically for possible recent head trauma. Followup CT imaging would be of value. 3. Chronic small vessel ischemic changes. 4. Mild parenchymal volume loss. BRAIN MR ANGIOGRAM: 1. Occluded right posterior cerebral artery. Diminutive flow versus occlusion of the right superior cerebellar artery. 2. Irregularity of the basilar artery is suspicious for a dissection. There is no aneurysm. 3. The anterior circulation of the brain is within normal limits. NECK MR ANGIOGRAM: 1. Occluded left vertebral artery is suspicious for dissection. However, chronic long-standing occlusion or occlusion related to atherosclerosis cannot be excluded. 2. Mild atherosclerosis of the origin of the right vertebral artery with mild tortuosity of the vessel without occlusion or high-grade narrowing. 3. No significant atherosclerosis of the bilateral common carotid arteries or internal carotid arteries. There is no aneurysms, high-grade stenoses, or occlusions. Note: These findings were discussed with Dr. Singh at 1425 hours (PST) on 10/20. The estimate of stenosis included in the report of the imaging study was calculated using the NASCET method Dictated by: Jose Enrique Diaz M.D. on 10/20/2016 at 13:31 Approved by: Jose Enrique Diaz M.D. on 10/20/2016 at 13:31 PROCEDURE: CT BRAIN WITHOUT CONTRAST ([id number]) INDICATIONS: Weakness and left neglect TECHNIQUE: Noncontrast 4.5 mm thick angled axial sections acquired from the foramen magnum to the vertex, with coronal reformats. COMPARISON: [facility], CT, CT HEAD WO CONTRAST, 06/02/2016, 9:49 PM. FINDINGS: Image quality: Excellent. CSF spaces: Basal cisterns are patent. The ventricles are symmetric in size and shape. There is mild cerebral volume loss, with resultant ventricular and sulcal prominence. Brain: There is effacement of garner-white matter differentiation as well as cortical and subcortical hyperattenuation involving a moderate sized region in the medial right occipital lobe consistent with an acute to subacute infarct. No associated hemorrhagic conversion. However, within the posterior left temporal lobe, there is subtle high attenuation along a few sulci suspicious for a small amount of subarachnoid hemorrhage. In the right padilla radiata, there is an indistinct hypodensity which is new from the prior study and suggestive of a lacunar infarct of indeterminate acuity. There are also subcortical, periventricular and deep white matter hypodensities consistent with mild to moderate chronic small vessel ischemic changes. There is intracranial internal carotid artery atherosclerosis. Skull and face: Calvarium and visualized facial bones appear intact, without suspicious lesions. Sinuses: Visualized sinuses and mastoids are clear. IMPRESSION: 1. Acute or subacute infarct involving the right occipital lobe without associated hemorrhagic conversion. 2. Suggestion of a small amount of subarachnoid hemorrhage along the posterior left temporal lobe. 3. Small hypodensity in the right padilla radiata compatible with a small lacunar infarct of indeterminate acuity. 4. Mild cerebral volume loss and chronic white matter small vessel ischemic changes. Recommend further evaluation with MRI if clinically indicated. Dictated by: Bo Shepard M.D. on 10/20/2016 at 9:37 Approved by: Bo Shepard M.D. on 10/20/2016 at 9:37 PROCEDURE: X-RAY CHEST ONE VIEW, PORTABLE ([id number]) INDICATIONS: Weakness TECHNIQUE: One view of the chest was acquired. COMPARISON: [facility], CR, XR CHEST 1V PORTABLE, 06/02/2016, 8: 37 PM. FINDINGS: Surgical changes and devices: None. Lungs and pleura: The patient limited by patient rotation. No definite pleural effusions or pneumothorax. No definite consolidation. There is a nodular opacity in the left superhilar region likely corresponding to complement vascular structures. Mediastinum: Heart size is enlarged. Bones and chest wall: No suspicious bony lesions. Overlying soft tissues appear unremarkable. IMPRESSION: 1. Limited study due to patient rotation demonstrates no definite consolidation. Recommend repeat study if clinical concern persists. 2. Cardiomegaly. Dictated by: Bo Shepard M.D. on 10/20/2016 at 12:05 Approved by: Bo Shepard M.D. on 10/20/2016 at 12:05 PROCEDURE: CT BRAIN WITHOUT CONTRAST ([id number]) INDICATIONS: Follow up for SAH TECHNIQUE: Noncontrast 4.5 mm thick angled axial sections acquired from the foramen magnum to the vertex, with coronal reformats. COMPARISON: [facility], CT, CT BRAIN WO CON, 10/20/2016, 8:48. FINDINGS: Image quality: Excellent. CSF spaces: Basal cisterns are patent. No extra-axial fluid collections. The ventricles are symmetric in size and shape. Brain: No definite intracranial bleeds or masses but there is mild interval increased mass effect from the medial right posterior occipital infarction, effacing the occipital horn of the right lateral ventricle to a greater degree. No hemorrhagic transformation of this infarction is found. The subtle areas of mild elevated radiodensity at several sulci of the posterior left temporal lobe do not reach the threshold for diagnosis of subarachnoid hemorrhage. There is cerebral volume loss for age, with resultant ventricular and sulcal prominence. There are periventricular and deep white matter chronic small vessel ischemic changes. There is intracranial internal carotid artery atherosclerosis. Skull and face: Calvarium and visualized facial bones appear intact, without suspicious lesions. Sinuses: Visualized sinuses and mastoids are clear. IMPRESSION: Evolution of mild edema associated with a medial right occipital stroke, which has not developed evidence of hemorrhagic transformation. Mild increased mass effect associated, as noted. There is no definite identified focus of subarachnoid hemorrhage. The several subtle areas of increased radiodensity along several left posterior temporal sulci could be more accurately assessed, however, by MR scanning if clinically desired. Any blood products in that area be easily identifiable during MR imaging. Dictated by: Yordy Vilchis M.D. on 10/21/2016 at 11:39 Approved by: Yordy Vilchis M.D. on 10/21/2016 at 11:39 Assessment & Plan The patient is a pleasant 81-year-old, right-handed woman with multiple medical problems who reportedly experienced sudden onset of left-sided weakness and neglect. She was initially seen at [facility] and then transferred here. Reportedly she has a history of prior transient ischemic attacks in the past. She reports that her left knee buckled at home when using her walker. She lives with her daughter. She has had she reports 5-6 falls over the last week and has been seeing a physical therapist. She does not recall hitting her head. She describes the sudden onset of weakness of her left leg. Patient was admitted directly to the hospital service for further evaluation and treatment. # Patient has suffered a vascular accident. -Neurology was consulted and patient was seen with neurologist Dr. Riaz Blakely. His assessment and recommendations are as follows: "IMPRESSION: Cerebrovascular accident involving the right posterior cerebral artery with occlusion of the right posterior cerebral artery. It is unclear if this is secondary to artery to artery embolism, versus a left vertebral artery dissection with associated dissection of the basilar artery, versus a cardioembolic etiology. There is acute ischemia involving the right parieto-occipital region, the right parahippocampal gyrus, and the superior margins of the right posterior frontal lobe. I do recommend continuing aspirin 325 mg daily. I do recommend a repeat CT of her head without contrast to be performed tomorrow morning. If this does not show any change in the size of her subarachnoid hemorrhage she may benefit from the addition of Plavix 75 mg daily given the concern for intracranial stenosis/dissection of the basilar artery. It is unclear if this is secondary to atherosclerotic disease resulting in high-grade narrowing versus dissection. In any case, the presence of atherosclerotic disease resulting in intracranial stenosis would warrant dual antiplatelet therapy. In the event that this is secondary to a dissection, she may benefit from dual antiplatelet therapy as well. Another possibility if the dissection is confirmed is anticoagulation. However, I would recommend first obtaining the CT of her brain without contrast tomorrow morning to assess the status of the subarachnoid hemorrhage, and then obtaining a CT angiogram of her head and neck to further assess the abnormalities appreciated on the neck and brain magnetic resonance angiogram to further clarify if indeed the irregularities present represent either high-grade atherosclerotic disease/stenosis versus dissection. In the event that the subarachnoid hemorrhage is noted to have progressed or worsened on the repeat CT of her head with contrast tomorrow morning, I will contact [facility] or [facility] for a possible transfer consultation. I would continue to optimize control of her stroke risk factors in this case including diabetes, hypertension, and hyperlipidemia, as well as obesity. She does not smoke." # Increased cerebral edema secondary to above - Patient has worsening of neurologic symptoms today due to the cerebral edema. - We will therefore repeat CT scan in a.m. - We will hold Plavix at this time - Discussed this with Dr. Blakely and he believes that this will improve with time. # Hypertension. -Continue lisinopril, metoprolol is at home for now. # Diabetes mellitus type 2. -Continue glimepiride and metformin. # Hyperlipidemia. -Continue simvastatin. # Antibiotic therapy. The patient is on fluconazole and Bactrim at this time for unclear reasons that she is unable to describe. I suspect this is for a recent urinary tract infection Disposition: Patient to have continued PT OT and speech therapy and likely will need placement in a rehabilitation center. Will discuss further plans with Dr. Blakely. Pain Evaluation: Adequate Pain Control GI Prophylaxis: Proton Pump Inhibitor VTE Prophylaxis: Sub-Q Enoxaparin Resuscitation Status: CPR: Attempt Resuscitation WalcottRoberto MD Oct 23, 2016 00:00
--- NOTE | 2016-10-23 04:08 | NUR ---
Headache, Pt reporting occasional headaches, at times 10/10 pain per pt, at other zero; relief at times without intervention. Tylenol was administered x1 with tolerable results. Left arm and leg remain flaccid. Pt encouraged to turn head and look to the left. Sensation intact to left side. Pt alert and oriented to self, unknown place although she knows she is here because of "a couple strokes".
[2016-10-23 07:26] LABS: BASOPHILS % (AUTO) 0 % (0-3); EOSINOPHILS % (AUTO) 0.1 % (0-5); Mean Corpuscular Volume 83.5 fL (81-100); NEUTROPHILS % (AUTO) 46.2 % (40-74); Platelet Count 161 bil/L (150-400)
[2016-10-23 07:40] LABS: Magnesium 1.8 mg/dL (1.6-2.6)
[2016-10-23] MEDS: Pantoprazole 40 mg ER24 Tablet PO SCH (08:03)
[2016-10-23] MEDS: Trimethoprim-Sulfa 160 mg-800 mg Tablet PO SCH ×2 (08:03→20:40)
[2016-10-23] MEDS: MeTOProlol XL 25 mg ER24 Tablet PO SCH (08:04)
--- NOTE | 2016-10-23 08:58 | NUR ---
Social Work-continued d/c planning: Data:EMR reviewed. Pt is on day 3 of hospitalization for weakness per H&P. SW received a call back from Holly at inpt rehab who feels that pt is not an appropriate candidate for inpt at this time. Holly feels pt would be better served to go to SNF for a while prior to coming to inpt rehab. Holly states she spoke with daughter about this and daughter was in agreement with plan. [facility]. Paperwork in the chart. SW will continue to follow. Assessment:Pt who would benefit from SNF. Plan:[facility] has accepted with Dr. Whitley to follow. Paperwork in the chart. SW will continue to follow. ZULEIMA Gordon
--- NOTE | 2016-10-23 11:52 | DRSVH ---
PROCEDURE: CT BRAIN WITHOUT CONTRAST ([id number]) INDICATIONS: Follow up for cerebral edema and SAH TECHNIQUE: Noncontrast 4.5 mm thick angled axial sections acquired from the foramen magnum to the vertex, with c oronal reformats. COMPARISON: [facility], CT, CT ANGIO BRAIN AND NECK, 10/20/2016, 16:15. [facility], CT, CT BRAIN WO CON, 10/22/2016, 3:29. [facility], CT, CT BRAIN WO CON, 10/21/2016 , 11:20. [facility], CT, CT BRAIN WO CON, 10/20/2016, 8:48. FINDINGS: Image quality: Excellent. CSF spaces: Basal cisterns are patent. No extra-axial fluid collections. The ventricles are symmet michelle in size and shape. Brain: No intracranial bleeds or masses. As before, there is a chronic infarct within the right supe romedial frontal lobe, extending into the medial right parietal lobe as well as the right occipital a nd posterior medial temporal lobes. There is cerebral volume loss for age, with resultant ventricular and sulcal prominence. There are periventricular and deep white matter chronic small vessel ischemi c changes. There is intracranial internal carotid artery atherosclerosis. Skull and face: Calvarium and visualized facial bones appear intact, without suspicious lesions. Sinuses: Visualized sinuses and mastoids are clear. IMPRESSION: 1. Progressive evolution of right-sided cerebral infarct. 2. Resolution of previously seen left temporal subarachnoid hemorrhage. Dictated by: Qi Bales M.D. on 10/23/2016 at 11:51 Approved by: Qi Bales M.D. on 10/23/2016 at 11:51
--- NOTE | 2016-10-23 12:15 | NUR ---
Activity Pt requested assistance getting up to [facility], this RN and AUTOMOTIVE MACHINIST were able to get pt to side of the bed however pt unable to assist with supporting weight. Additional staff was contacted and pt was placed on [facility]SC. Pt is a max 3 per assist, unable to help with transferring. Pt was assisted back to bed. Call light within reach, will continue to monitor.
--- NOTE | 2016-10-23 16:55 | NUR ---
spiritual care: nurse referral/follow up conversational visit. pt reflective about her family of origin, marriage and memories. Engaged with leading questions including role of her sofia as source of comfort and direction. 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 Pt thoughtful and clear mostly, sometimes talking as if another person was also present. She expressed her weariness and disappointment at "antoher stroke"
--- NOTE | 2016-10-23 20:49 | CONS ---
[address] [address] CONSULTATION REPORT PATIENT: HILDA MARTINEZ : 1935 MR#: [id number] ADMIT: 10/20/2016 JOB ID: [id number] DATE OF SERVICE: 10/23/2016 SUBJECTIVE: Today, the patient appears more alert and awake. She reports that last night, she developed a mild headache which she describes as bifrontal and a mild backache for which she received medication reports that this improved. She has noted intermittent headaches, however, reports that these do respond to medication. She has not noted any other new neurologic symptoms today. 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 I did call and speak with her daughter as well and discuss in detail. Repeat CT of her head today demonstrated progressive evolution of the right-sided cerebral infarcts and resolution of the previously seen left temporal subarachnoid hemorrhage. CT of her head today does demonstrate improvement when compared to the CT of her head from yesterday. OBJECTIVE: Vital signs: Temperature 37.0, pulse of 79, respiratory rate of 16, blood pressure 116/68, pulse oximetry 94% on room air. General: She is a well-developed, well-nourished woman in no acute distress. Head: Normocephalic, atraumatic. Neck is supple. No carotid bruits were auscultated. Chest: Clear to auscultation. Heart: Regular rate and rhythm. Abdomen: Soft, nondistended, nontender. Extremities: No cyanosis, clubbing, or edema. NEUROLOGIC EXAMINATION: Mental status: She is awake, alert, oriented x3. Speech is clear and fluent with intact comprehension. There was no aphasia. There was prominent gaze preference to the right with neglect of the left side. Cranial nerves: Pupils equal, round, reactive to light and accommodation. Face appeared symmetrical. Facial sensation was intact to light touch and temperature. There was a left homonymous hemianopsia noted. There was a prominent right gaze preference noted. Auditory sensation was intact to finger rub bilaterally. Palatal elevation was symmetrical. Tongue was midline. Sternocleidomastoid and trapezii were 5/5 bilaterally. Motor: Today again she was unable to lift her left upper extremity against gravity or her left lower extremity against gravity. She was able to move her toes slightly. Sensation was intact to light touch and temperature. Deep tendon reflexes were diminished throughout. There is a trace positive Babinski on the left. Gait was deferred. Cerebrovascular accident with right posterior cerebral artery occlusion resulting in acute ischemia involving the right parieto-occipital region, the right hippocampal gyrus, and the superior margins of the right posterior frontal lobe. Etiology is likely multifactorial including diabetes mellitus type 2, hypertension, and hyperlipidemia. She did have an echocardiogram, as noted above. Given the location of her stroke and the absence of any cardiac abnormalities on the telemetry monitoring, I do recommend obtaining a transesophageal echocardiogram as well as a ZIO patch as an outpatient. This is to exclude any cardioembolic etiology. My suspicion is that the stroke may have been secondary to diffuse intracranial and extracranial stenosis. In light of this, and the lack of any hemorrhagic conversion, and at this point, it being day five following her stroke, I do recommend the addition of Plavix 75 mg tomorrow to her regimen. Given the degrees intracranial and extracranial stenosis, I do recommend dual antiplatelet therapy at least at this point and for the next three months, reevaluating after three months. I recommend continuing stroke protocol, continue to optimize control of stroke risk factors. Today's NIH stroke scale remains the same at a score of 10, 1 for best gaze, 2 for complete hemianopsia, 3 for left lower extremity 4 for left upper extremity and 1 for neglect. Her visit etiology as noted above. I do believe that this is likely multifactorial due to her multiple stroke risk factors, however, I would like to exclude the possibility of a cardioembolic etiology and in light of the intracranial and extracranial stenosis I do recommend initiation of Plavix tomorrow. There is certainly a potential risk for the development of hemorrhagic conversion. However, hemorrhagic conversion is the greatest risk for the development of hemorrhagic conversion within the 1st 3-5 days and this risk does decline over time. However, after starting the Plavix I would continue to monitor her mental status closely and repeat a stat CT of her head without contrast if there is noted to be an acute mental status or neurologic change. Will continue to follow. Thank you, again, Dr. Singh, for allowing me to participate in the care of your patient. Please feel free to contact me with any questions or concerns.
[2016-10-24] VITALS (7 sets, daily range): BP systolic 106–164; BP diastolic 67–90; PULSE 64–81; RESP 16–19; O2SAT 93–98
--- NOTE | 2016-10-24 00:27 | PCM.PNMED ---
Subjective Date of Service Oct 24, 2016 Subjective Patient appears despondent again today. She is lying supine in bed and is comfortable but is still unable to move her left side. Exam Vital Signs Vital Sign - Last Date Time Temp Pulse Resp B/P Pulse Ox O2 Delivery O2 Flow Rate FiO2 10/23/16 21:02 37.5 73 18 151/83 95 Room Air Intake and Output 10/23/16 10/23/16 10/24/16 Cumulative From/Thru 15:00 23:00 07:00 10/20/16 04:18 - 10/23/16 20:08 Intake Total 991 ml 4191 ml Output Total 1700 ml Balance 991 ml 2491 ml Intake Oral 991 ml 4191 ml Output Urine Total 1700 ml # Voids 2 21 # Bowel Movements 0 Exam Interval: Patient is in no apparent distress. However, she appears despondent due to her increased disability HEENT: Head is atraumatic normocephalic. Eyes: Pupils are equally round and reactive to light and accommodation. Extraocular muscles exhibit a right lateral gaze. Sclera are white anicteric. Subconjunctival mucosa is pink. Ears and nose are unremarkable. Oropharynx: There is no mucosal lesions, there is no thrush, there is no pharyngitis. Neck: Is supple, there are no nodes or masses or tenderness. Chest: Is clear to auscultation and percussion. There are no rales, rhonchi, wheezes or rubs. Heart: Rate , rhythm is regular. There is no murmur, rub or gallop. Abdomen: Good bowel sounds are present. Abdomen is soft, nontender, no organomegaly or masses were appreciated. Extremities: Are symmetrical and well perfused. There is no edema, there is no cellulitis, no rash. Neurologic: Patient exhibits left sided neglect. She is unable to move her left upper extremity or her left lower extremity today Patient's visual thompson are off. She has left homonymous austin-anopsia and right lateral gaze. Psychiatric: Patients mood is calm and shows no sign of agitation. She does appear despondent. Genital: Deferred Rectal: Deferred Lab and Diagnostics Result Diagram: 10/23/16 0650 10/23/16 0650 X-Rays, CTs and MRIs PROCEDURE: CT ANGIO HEAD AND NECK (P) INDICATIONS: r/o dissection TECHNIQUE: Pre-contrast 4.5 mm thick sections acquired from the foramen magnum to the vertex. After the administration of intravenous contrast, 1 mm thick sections acquired from the aortic arch through the [place]. Post-contrast 4.5 mm thick sections then re-acquired from the foramen magnum to the vertex. 3- dimensional modjhzj-wifogwjsh-hbwnlbqsgc (MIP) and/or volume rendering reformats were acquired of the central intracranial vasculature and neck separately. For radiation dose reduction, the following was used: automated exposure control, adjustment of mA and/or kV according to patient size. COMPARISON: [facility], , MR STROKE PROTOCOL, 10/20/2016, 12:54. FINDINGS: Image quality: Excellent. BRAIN: CSF spaces: There is mild cerebral volume loss with prominence of the ventricles and sulci. Brain: There is a moderate sized infarct redemonstrated in the right occipital parietal lobe. There are also small infarcts along the posterior right frontal lobe demonstrated medially. Subtle subarachnoid hemorrhage along the posterior left temporal lobe is again noted. No new hemorrhage or mass effect compared to the recent study. A prior lacunar infarct redemonstrated in the right padilla radiata. Skull and face: Calvarium and facial bones appear intact, without suspicious lesions. Orbits appear normal. I Sinuses: Sinuses and mastoids are clear. HEAD CT ANGIOGRAPHY: Anterior circulation: Intracranial internal carotid arteries are patent bilaterally. There is occlusion of the right anterior cerebral artery at the level of the proximal A2 segment. There is likely collateral flow of the distal territories from the left side. The flow within the middle cerebral arteries is patent bilaterally with a short segment stenosis in the M2 segment of the right middle cerebral artery of approximately 50-60%. The anterior communicating artery is patent. No definite aneurysms. Posterior circulation: There is a diminutive distal left vertebral artery which joins with the right vertebral artery to form the basilar artery. There is focal narrowing in the mid basilar artery of approximately 50%. There is persistent circulation with the right posterior cerebral artery supplied by the posterior communicating artery. There is a short segment stenosis within the P2 segment of the right posterior cerebral artery with narrowing of approximately 60-70%. The left posterior cerebral artery appears patent. NECK CT ANGIOGRAPHY: Carotid system: The great vessels demonstrate conventional anatomy as they arise from the aortic arch. The origins of the common carotid arteries appear patent. The common carotid arteries demonstrate normal caliber and courses. The carotid bulbs appear widely patent. The internal carotid arteries demonstrate normal calibers and courses. Posterior circulation: The origin of the left vertebral artery is not well- visualized. There is a long segment occlusion of the proximal left vertebral artery with reconstitution distally at the level of C2. The right vertebral artery appears patent. Soft tissues: The thyroid is heterogeneous in appearance with small indistinct nodules bilaterally as well as multiple foci of calcifications. Bones: No suspicious bony lesions. There is straightening of the cervical lordosis with multilevel degenerative changes including severe disc space narrowing at C5-C6 with endplate osteophytosis and sclerosis. IMPRESSION: 1. 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 The etiology of the chronic occlusion is indeterminate but likely atherosclerotic. 2. Occlusion of the distal right anterior cerebral artery at the level of the proximal A2 segment with likely collateral flow distally from the left side. 3. Short segment stenosis of approximately 50-60% in the M2 segment of the right middle cerebral artery. 4. Short segment stenosis in the P2 segment of the right posterior cerebral artery of approximately 60-70%. 5. Right occipital and posterior frontal lobe infarcts redemonstrated as seen on the recent MRI. 5. Small amount of left subarachnoid hemorrhage redemonstrated along the temporal lobe. No definite new foci of hemorrhage. Dictated by: Bo Shepard M.D. on 10/20/2016 at 17:21 Approved by: Bo Shepard M.D. on 10/20/2016 at 17:21 PROCEDURE: MRI STROKE PROTOCOL ([id number]) Pre- and post-contrast brain MRI, non-contrast brain MR angiogram, pre- and postcontrast neck MR angiogram INDICATIONS: CT (+) stroke TECHNIQUE: Brain: Noncontrast axial T1 spin echo, axial T2 fast spin echo, sagittal and axial FLAIR, coronal T2 fast spin echo, axial gradient echo, axial diffusion and ADC through the brain. After the administration of contrast, axial 3D VIBE of the cranial vasculature and brain. Brain MRA: Non-contrast 3-D time of flight MR angiogram, with multiple maximum- intensity-projection (MIP) reformats performed. Neck MRA: Axial and sagittal TruFISP through the neck. Coronal dynamic MR angiogram during administration of contrast in the arterial and venous phases, with 3-dimenstional nrnubrq-vxclitczz-ndvllziefe (MIP) reformats constructed from subtraction images. COMPARISON: [facility], CT, CT BRAIN WO CON, 10/20/2016, 8:48. FINDINGS: Image quality: Diagnostic. BRAIN: Brain: There is no acute intra-axial hemorrhage. Subtle areas of increased flair signal are identified along the arachnoid space involving the left temporal occipital region (image 10, series 5), compatible with a subarachnoid hemorrhage comment especially when combined with the CT findings. No extra- axial fluid collection is identified. There is no midline shift or mass effect. The orbits are grossly unremarkable. There is a diffuse area of vague increased signal on the flair images involving the posterior right parieto- occipital region and posterior right frontal region near the convexity. Corresponding increased signal within these regions on the diffusion images is present. A small area of increased diffusion and flair signal is noted involving the parahippocampal gyrus is also present at the right temporal lobe. No hemorrhagic conversion is appreciated. Mild decreased enhancement involving these regions is present on the postcontrast images. Additional foci of increased flair signal within the deep white matter of the supratentorial brain are present. The midline intracranial structures are within normal limits. No parenchymal masses are identified. The ventricles and cortical sulci mildly prominent. Bones: The imaged osseous structures are grossly intact. No suspicious osseous lesions are identified. The included paranasal sinuses and mastoid air cells are clear. Extracranial soft tissues: The imaged overlying soft tissues of the face and head are grossly unremarkable. BRAIN MR ANGIOGRAM: Anterior circulation: Intracranial internal carotid arteries are normal in size and enhancement. The flow within the paired anterior cerebral arteries is normal and symmetric. The flow within the middle cerebral arteries is normal and symmetric. The anterior communicating artery is seen. No stenoses, occlusions, or aneurysms. Posterior circulation: The left vertebral artery is diminutive and likely occluded. There is irregularity of the basilar artery. Reduced or absent flow of the right posterior cerebral artery is present. A similar appearance is noted involving the right superior cerebellar artery. The left posterior cerebral artery and cerebellar arteries are patent and unremarkable. No aneurysms. NECK MR ANGIOGRAM: Carotids: Great vessels demonstrate a conventional anatomy as they arise from the aortic arch. The origins of the common carotid arteries appear patent. The calibers and courses of both common carotid arteries are normal. The bifurcation regions appear normal bilaterally. The internal carotid arteries demonstrate normal course and caliber. Posterior circulation: The right vertebral artery is normal in course and caliber without definite high grade narrowing appreciated. There is mild atherosclerotic irregularity along the origin of the right vertebral artery. Mild tortuosity of the vertebral artery is present. The left vertebral artery is occluded from the level of the origin. Only minimal flow is seen within the distal aspect of the left vertebral artery near the basilar artery, which may be related to collateral vessels or retrograde flow from the right vertebral artery/basilar artery. Miscellaneous: Subclavian arteries appear patent. Pre-contrast images through the neck show no soft tissue abnormalities. IMPRESSION: BRAIN MRI: 1. Right posterior cerebral artery infarction with acute ischemia noted involving the right parietal-occipital region, the right parahippocampal gyrus and superior margins of the right posterior frontal lobe. No hemorrhagic conversion is evident involving these infarcted regions. 2. Small subarachnoid hemorrhage overlying the left temporal occipital region is unusual in the setting of stroke. Please correlate clinically for possible recent head trauma. Followup CT imaging would be of value. 3. Chronic small vessel ischemic changes. 4. Mild parenchymal volume loss. BRAIN MR ANGIOGRAM: 1. Occluded right posterior cerebral artery. Diminutive flow versus occlusion of the right superior cerebellar artery. 2. Irregularity of the basilar artery is suspicious for a dissection. There is no aneurysm. 3. The anterior circulation of the brain is within normal limits. NECK MR ANGIOGRAM: 1. Occluded left vertebral artery is suspicious for dissection. However, chronic long-standing occlusion or occlusion related to atherosclerosis cannot be excluded. 2. Mild atherosclerosis of the origin of the right vertebral artery with mild tortuosity of the vessel without occlusion or high-grade narrowing. 3. No significant atherosclerosis of the bilateral common carotid arteries or internal carotid arteries. There is no aneurysms, high-grade stenoses, or occlusions. Note: These findings were discussed with Dr. Singh at 1425 hours (PST) on 10/20. The estimate of stenosis included in the report of the imaging study was calculated using the NASCET method Dictated by: Jose Enrique Diaz M.D. on 10/20/2016 at 13:31 Approved by: Jose Enrique Diaz M.D. on 10/20/2016 at 13:31 PROCEDURE: CT BRAIN WITHOUT CONTRAST ([id number]) INDICATIONS: Weakness and left neglect TECHNIQUE: Noncontrast 4.5 mm thick angled axial sections acquired from the foramen magnum to the vertex, with coronal reformats. COMPARISON: [facility], CT, CT HEAD WO CONTRAST, 06/02/2016, 9:49 PM. FINDINGS: Image quality: Excellent. CSF spaces: Basal cisterns are patent. The ventricles are symmetric in size and shape. There is mild cerebral volume loss, with resultant ventricular and sulcal prominence. Brain: There is effacement of garner-white matter differentiation as well as cortical and subcortical hyperattenuation involving a moderate sized region in the medial right occipital lobe consistent with an acute to subacute infarct. No associated hemorrhagic conversion. However, within the posterior left temporal lobe, there is subtle high attenuation along a few sulci suspicious for a small amount of subarachnoid hemorrhage. In the right padilla radiata, there is an indistinct hypodensity which is new from the prior study and suggestive of a lacunar infarct of indeterminate acuity. There are also subcortical, periventricular and deep white matter hypodensities consistent with mild to moderate chronic small vessel ischemic changes. There is intracranial internal carotid artery atherosclerosis. Skull and face: Calvarium and visualized facial bones appear intact, without suspicious lesions. Sinuses: Visualized sinuses and mastoids are clear. IMPRESSION: 1. Acute or subacute infarct involving the right occipital lobe without associated hemorrhagic conversion. 2. Suggestion of a small amount of subarachnoid hemorrhage along the posterior left temporal lobe. 3. Small hypodensity in the right padilla radiata compatible with a small lacunar infarct of indeterminate acuity. 4. Mild cerebral volume loss and chronic white matter small vessel ischemic changes. Recommend further evaluation with MRI if clinically indicated. Dictated by: Bo Shepard M.D. on 10/20/2016 at 9:37 Approved by: Bo Shepard M.D. on 10/20/2016 at 9:37 PROCEDURE: X-RAY CHEST ONE VIEW, PORTABLE ([id number]) INDICATIONS: Weakness TECHNIQUE: One view of the chest was acquired. COMPARISON: [facility], CR, XR CHEST 1V PORTABLE, 06/02/2016, 8: 37 PM. FINDINGS: Surgical changes and devices: None. Lungs and pleura: The patient limited by patient rotation. No definite pleural effusions or pneumothorax. No definite consolidation. There is a nodular opacity in the left superhilar region likely corresponding to complement vascular structures. Mediastinum: Heart size is enlarged. Bones and chest wall: No suspicious bony lesions. Overlying soft tissues appear unremarkable. IMPRESSION: 1. Limited study due to patient rotation demonstrates no definite consolidation. Recommend repeat study if clinical concern persists. 2. Cardiomegaly. Dictated by: Bo Shepard M.D. on 10/20/2016 at 12:05 Approved by: Bo Shepard M.D. on 10/20/2016 at 12:05 PROCEDURE: CT BRAIN WITHOUT CONTRAST ([id number]) INDICATIONS: Follow up for [facility] TECHNIQUE: Noncontrast 4.5 mm thick angled axial sections acquired from the foramen magnum to the vertex, with coronal reformats. COMPARISON: [facility], CT, CT BRAIN WO CON, 10/20/2016, 8:48. FINDINGS: Image quality: Excellent. CSF spaces: Basal cisterns are patent. No extra-axial fluid collections. The ventricles are symmetric in size and shape. Brain: No definite intracranial bleeds or masses but there is mild interval increased mass effect from the medial right posterior occipital infarction, effacing the occipital horn of the right lateral ventricle to a greater degree. No hemorrhagic transformation of this infarction is found. The subtle areas of mild elevated radiodensity at several sulci of the posterior left temporal lobe do not reach the threshold for diagnosis of subarachnoid hemorrhage. There is cerebral volume loss for age, with resultant ventricular and sulcal prominence. There are periventricular and deep white matter chronic small vessel ischemic changes. There is intracranial internal carotid artery atherosclerosis. Skull and face: Calvarium and visualized facial bones appear intact, without suspicious lesions. Sinuses: Visualized sinuses and mastoids are clear. IMPRESSION: Evolution of mild edema associated with a medial right occipital stroke, which has not developed evidence of hemorrhagic transformation. Mild increased mass effect associated, as noted. There is no definite identified focus of subarachnoid hemorrhage. The several subtle areas of increased radiodensity along several left posterior temporal sulci could be more accurately assessed, however, by MR scanning if clinically desired. Any blood products in that area be easily identifiable during MR imaging. Dictated by: Yordy Vilchis M.D. on 10/21/2016 at 11:39 Approved by: Yordy Vilchis M.D. on 10/21/2016 at 11:39 Cardiac Echo Impressions Echocardiogram Report Name: HILDA MARTINEZ YStudy Date: 0 10/22/2016 Height: 63 in Hospital Exam Location: [facility] Weight: 206 lb Gender: Female BSA: 2.0 m2 : 1935 Age: 81 yrs BP: 163/ 69 mmHg Reason For Study: CVA Ordering Physician: HOSPITALIST [facility] Performed By: Nima Daley Referring Physician: PAULINA SINGH Interpretation Summary Left ventricular wall thickness is mildly increased. The ejection fraction is estimated to be 60-65%. There appears to be focal mid RV free wall hypertrophy. Consider cardiac MRI to evaluate this further, if clinically indicated The interatrial septum is intact with no evidence for an atrial septal defect. The right ventricular systolic pressure is estimated at 29 mmHg assuming a right atrial pressure of 3 mm Hg. There is no obvious cardiac source of embolus noted on this transthoracic echocardiogram. Follow-up with a FARHAD is suggested if cardiac source is still suspected. Assessment & Plan The patient is a pleasant 81-year-old, right-handed woman with multiple medical problems who reportedly experienced sudden onset of left-sided weakness and neglect. She was initially seen at [facility] and then transferred here. Reportedly she has a history of prior transient ischemic attacks in the past. She reports that her left knee buckled at home when using her walker. She lives with her daughter. She has had she reports 5-6 falls over the last week and has been seeing a physical therapist. She does not recall hitting her head. She describes the sudden onset of weakness of her left leg. Patient was admitted directly to the hospital service for further evaluation and treatment. # Patient has suffered a vascular accident. -Neurology was consulted and patient was seen with neurologist Dr. Riaz Blakely. His assessment and recommendations are as follows: "Clinical Cerebrovascular accident with right posterior cerebral artery occlusion resulting in acute ischemia involving the right parieto-occipital region, the right hippocampal gyrus, and the superior margins of the right posterior frontal lobe. Etiology is likely multifactorial including diabetes mellitus type 2, hypertension, and hyperlipidemia. She did have an echocardiogram, as noted above. Given the location of her stroke and the absence of any cardiac abnormalities on the telemetry monitoring, I do recommend obtaining a transesophageal echocardiogram as well as a ZIO patch as an outpatient. This is to exclude any cardioembolic etiology. My suspicion is that the stroke may have been secondary to diffuse intracranial and extracranial stenosis. In light of this, and the lack of any hemorrhagic conversion, and at this point, it being day five following her stroke, I do recommend the addition of Plavix 75 mg tomorrow to her regimen. Given the degrees intracranial and extracranial stenosis, I do recommend dual antiplatelet therapy at least at this point and for the next three months, reevaluating after three months. I recommend continuing stroke protocol, continue to optimize control of stroke risk factors. Today's NIH stroke scale remains the same at a score of 10, 1 for best gaze, 2 for complete hemianopsia, 3 for left lower extremity 4 for left upper extremity and 1 for neglect. Her visit etiology as noted above. I do believe that this is likely multifactorial due to her multiple stroke risk factors, however, I would like to exclude the possibility of a cardioembolic etiology and in light of the intracranial and extracranial stenosis I do recommend initiation of Plavix tomorrow. There is certainly a potential risk for the development of hemorrhagic conversion. However, hemorrhagic conversion is the greatest risk for the development of hemorrhagic conversion within the 1st 3-5 days and this risk does decline over time. However, after starting the Plavix I would continue to monitor her mental status closely and repeat a stat CT of her head without contrast if there is noted to be an acute mental status or neurologic change. Will continue to follow." # Cerebral edema secondary to above. Subarachnoid hemorrhage appears to have resolved as demonstrated by today's CT scan. - Patient has worsening of neurologic symptoms due to the cerebral edema. - We will start Plavix in a.m. as recommended by Dr. Blakely - Discussed this with Dr. Blakely and he believes that this will improve with time. # Hypertension. -Continue lisinopril, metoprolol is at home for now. # Diabetes mellitus type 2. -Continue glimepiride and metformin. # Hyperlipidemia. -Continue simvastatin. # Antibiotic therapy. The patient is on fluconazole and Bactrim at this time for unclear reasons that she is unable to describe. I suspect this is for a recent urinary tract infection Disposition: Patient to have continued PT OT and speech therapy and likely will need placement in a rehabilitation center. Will discuss further plans with Dr. Blakely. Pain Evaluation: Adequate Pain Control GI Prophylaxis: Proton Pump Inhibitor VTE Prophylaxis: Sub-Q Enoxaparin Resuscitation Status: CPR: Attempt Resuscitation Greenback,Christopher E MD Oct 24, 2016 00:27
--- NOTE | 2016-10-24 04:19 | NUR ---
Sleep: Mary pt has been able to sleep between care; more so than the last two nights. Pt pleasant with conversation, smiling and joking. Alert and oriented to self and reason for being here. Encouraged pt to turn head to the left as RN was standing and talking to on left side. Low bed for pt safety. Has been NPO since midnight for scheduled FARHAD today.
[2016-10-24 07:04] LABS: BASOPHILS % (AUTO) 0.1 % (0-3); EOSINOPHILS % (AUTO) 0.1 % (0-5); MONOCYTES % (AUTO) 29.5 % (4-12); Mean Corpuscular Hemoglobin 28.9 pg (27.0-35.0); Mean Corpuscular Volume 83.1 fL (81-100); NEUTROPHILS % (AUTO) 41.9 % (40-74); Platelet Count 178 bil/L (150-400)
[2016-10-24] MEDS: Trimethoprim-Sulfa 160 mg-800 mg Tablet PO SCH ×2 (09:21→20:40)
[2016-10-24] MEDS: MeTOProlol XL 25 mg ER24 Tablet PO SCH (09:22)
[2016-10-24] MEDS: Pantoprazole 40 mg ER24 Tablet PO SCH (09:23)
--- NOTE | 2016-10-24 10:46 | NUR ---
Social Work-continued d/c planning: Data:EMR Reviewed. Pt is on day 4 of hospitalization per H&P. Per MD, pt is several days out from discharge. ASHLYN spoke with Ladonna at [facility] who states they will have a bed for pt at discharge. ASHLYN placed a call to daughter Allison and left message. Paperwork and PASRR In the chart. SW will continue to follow. Assessment:Pt who would benefit from SNF. Plan:[facility] has accepted pt with Dr. Whitley to follow. ASHLYN left message for daughter. Paperwork and PASRR In the chart. SW will continue to follow. ZULEIMA Gordon
--- NOTE | 2016-10-24 10:47 | NUR ---
SW left message for daughter regarding SAMANTHA. Fannie Vigil,OIL SPREADER OPERATOR
--- NOTE | 2016-10-24 16:56 | NUR ---
spiritual care: follow up caring conversational visit. pt reflected some content from yesterday's visit, offered blessing. appreciative.
--- NOTE | 2016-10-24 18:04 | NUR ---
BM: Patient had not had BM since 10/21/16. Kayexalate ordered by MD (patients potassium level this morning was 5.1 )and given to patient. Patient had very large loose stool this evening. Patient is very weak and unsteady on her feet and unable to stand safely for nuersing staff to help her to the Bed side commode. Patient used Bed mejias for toileting needs and brief on patient.
[2016-10-25] VITALS (8 sets, daily range): BP systolic 115–143; BP diastolic 67–82; PULSE 66–82; RESP 18–19; O2SAT 93–96
--- NOTE | 2016-10-25 00:25 | PCM.PNMED ---
Subjective Date of Service Oct 25, 2016 Subjective Patient appears despondent again today. She continues to be unable to move her left arm or left leg. He has a predominant right lateral gaze. Exam Vital Signs Vital Sign - Last Date Time Temp Pulse Resp B/P Pulse Ox O2 Delivery O2 Flow Rate FiO2 10/25/16 00:00 36.6 66 18 115/75 95 Room Air Intake and Output 10/24/16 10/24/16 10/25/16 Cumulative From/Thru 15:00 23:00 07:00 10/20/16 04:18 - 10/24/16 20:51 Intake Total 586 ml 4777 ml Output Total 1700 ml Balance 586 ml 3077 ml Intake Oral 586 ml 4777 ml Output Urine Total 1700 ml # Voids 3 27 # Bowel Movements 2 2 Exam General: Patient is in no apparent distress. However, she appears despondent due to her continued disability HEENT: Head is atraumatic normocephalic. Eyes: Pupils are equally round and reactive to light and accommodation. Extraocular muscles exhibit a right lateral gaze. Sclera are white anicteric. Subconjunctival mucosa is pink. Ears and nose are unremarkable. Oropharynx: There are no mucosal lesions, there is no thrush, there is no pharyngitis. Neck: Is supple, there are no nodes or masses or tenderness. Chest: Is clear to auscultation and percussion. There are no rales, rhonchi, wheezes or rubs. Heart: Rate , rhythm is regular. There is no murmur, rub or gallop. Abdomen: Good bowel sounds are present. Abdomen is soft, nontender, no organomegaly or masses were appreciated. Extremities: Are symmetrical and well perfused. There is no edema, there is no cellulitis, no rash. Neurologic: Patient exhibits left sided neglect. She is unable to move her left upper extremity or her left lower extremity. Patient's visual thompson are off. She has left homonymous austin-anopsia and right lateral gaze. Psychiatric: Patients mood is calm and shows no sign of agitation. She does appear despondent. Genital: Deferred Rectal: Deferred Lab and Diagnostics Result Diagram: 10/24/16 0647 10/24/16 0647 X-Rays, CTs and MRIs PROCEDURE: CT ANGIO HEAD AND NECK (P) INDICATIONS: r/o dissection TECHNIQUE: Pre-contrast 4.5 mm thick sections acquired from the foramen magnum to the vertex. After the administration of intravenous contrast, 1 mm thick sections acquired from the aortic arch through the [place]. Post-contrast 4.5 mm thick sections then re-acquired from the foramen magnum to the vertex. 3- dimensional tfatuxb-jovzkxubu-aigkuqceei (MIP) and/or volume rendering reformats were acquired of the central intracranial vasculature and neck separately. For radiation dose reduction, the following was used: automated exposure control, adjustment of mA and/or kV according to patient size. COMPARISON: [facility], , MR STROKE PROTOCOL, 10/20/2016, 12:54. FINDINGS: Image quality: Excellent. BRAIN: CSF spaces: There is mild cerebral volume loss with prominence of the ventricles and sulci. Brain: There is a moderate sized infarct redemonstrated in the right occipital parietal lobe. There are also small infarcts along the posterior right frontal lobe demonstrated medially. Subtle subarachnoid hemorrhage along the posterior left temporal lobe is again noted. No new hemorrhage or mass effect compared to the recent study. A prior lacunar infarct redemonstrated in the right padilla radiata. Skull and face: Calvarium and facial bones appear intact, without suspicious lesions. Orbits appear normal. I Sinuses: Sinuses and mastoids are clear. HEAD CT ANGIOGRAPHY: Anterior circulation: Intracranial internal carotid arteries are patent bilaterally. There is occlusion of the right anterior cerebral artery at the level of the proximal A2 segment. There is likely collateral flow of the distal territories from the left side. The flow within the middle cerebral arteries is patent bilaterally with a short segment stenosis in the M2 segment of the right middle cerebral artery of approximately 50-60%. The anterior communicating artery is patent. No definite aneurysms. Posterior circulation: There is a diminutive distal left vertebral artery which joins with the right vertebral artery to form the basilar artery. There is focal narrowing in the mid basilar artery of approximately 50%. There is persistent circulation with the right posterior cerebral artery supplied by the posterior communicating artery. There is a short segment stenosis within the P2 segment of the right posterior cerebral artery with narrowing of approximately 60-70%. The left posterior cerebral artery appears patent. NECK CT ANGIOGRAPHY: Carotid system: The great vessels demonstrate conventional anatomy as they arise from the aortic arch. The origins of the common carotid arteries appear patent. The common carotid arteries demonstrate normal caliber and courses. The carotid bulbs appear widely patent. The internal carotid arteries demonstrate normal calibers and courses. Posterior circulation: The origin of the left vertebral artery is not well- visualized. There is a long segment occlusion of the proximal left vertebral artery with reconstitution distally at the level of C2. The right vertebral artery appears patent. Soft tissues: The thyroid is heterogeneous in appearance with small indistinct nodules bilaterally as well as multiple foci of calcifications. Bones: No suspicious bony lesions. There is straightening of the cervical lordosis with multilevel degenerative changes including severe disc space narrowing at C5-C6 with endplate osteophytosis and sclerosis. IMPRESSION: 1. 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 The etiology of the chronic occlusion is indeterminate but likely atherosclerotic. 2. Occlusion of the distal right anterior cerebral artery at the level of the proximal A2 segment with likely collateral flow distally from the left side. 3. Short segment stenosis of approximately 50-60% in the M2 segment of the right middle cerebral artery. 4. Short segment stenosis in the P2 segment of the right posterior cerebral artery of approximately 60-70%. 5. Right occipital and posterior frontal lobe infarcts redemonstrated as seen on the recent MRI. 5. Small amount of left subarachnoid hemorrhage redemonstrated along the temporal lobe. No definite new foci of hemorrhage. Dictated by: Bo Shepard M.D. on 10/20/2016 at 17:21 Approved by: Bo Shepard M.D. on 10/20/2016 at 17:21 PROCEDURE: MRI STROKE PROTOCOL ([id number]) Pre- and post-contrast brain MRI, non-contrast brain MR angiogram, pre- and postcontrast neck MR angiogram INDICATIONS: CT (+) stroke TECHNIQUE: Brain: Noncontrast axial T1 spin echo, axial T2 fast spin echo, sagittal and axial FLAIR, coronal T2 fast spin echo, axial gradient echo, axial diffusion and ADC through the brain. After the administration of contrast, axial 3D VIBE of the cranial vasculature and brain. Brain MRA: Non-contrast 3-D time of flight MR angiogram, with multiple maximum- intensity-projection (MIP) reformats performed. Neck MRA: Axial and sagittal TruFISP through the neck. Coronal dynamic MR angiogram during administration of contrast in the arterial and venous phases, with 3-dimenstional yxhwrzr-zyrswsdzz-cvjoqjskim (MIP) reformats constructed from subtraction images. COMPARISON: [facility], CT, CT BRAIN WO CON, 10/20/2016, 8:48. FINDINGS: Image quality: Diagnostic. BRAIN: Brain: There is no acute intra-axial hemorrhage. Subtle areas of increased flair signal are identified along the arachnoid space involving the left temporal occipital region (image 10, series 5), compatible with a subarachnoid hemorrhage comment especially when combined with the CT findings. No extra- axial fluid collection is identified. There is no midline shift or mass effect. The orbits are grossly unremarkable. There is a diffuse area of vague increased signal on the flair images involving the posterior right parieto- occipital region and posterior right frontal region near the convexity. Corresponding increased signal within these regions on the diffusion images is present. A small area of increased diffusion and flair signal is noted involving the parahippocampal gyrus is also present at the right temporal lobe. No hemorrhagic conversion is appreciated. Mild decreased enhancement involving these regions is present on the postcontrast images. Additional foci of increased flair signal within the deep white matter of the supratentorial brain are present. The midline intracranial structures are within normal limits. No parenchymal masses are identified. The ventricles and cortical sulci mildly prominent. Bones: The imaged osseous structures are grossly intact. No suspicious osseous lesions are identified. The included paranasal sinuses and mastoid air cells are clear. Extracranial soft tissues: The imaged overlying soft tissues of the face and head are grossly unremarkable. BRAIN MR ANGIOGRAM: Anterior circulation: Intracranial internal carotid arteries are normal in size and enhancement. The flow within the paired anterior cerebral arteries is normal and symmetric. The flow within the middle cerebral arteries is normal and symmetric. The anterior communicating artery is seen. No stenoses, occlusions, or aneurysms. Posterior circulation: The left vertebral artery is diminutive and likely occluded. There is irregularity of the basilar artery. Reduced or absent flow of the right posterior cerebral artery is present. A similar appearance is noted involving the right superior cerebellar artery. The left posterior cerebral artery and cerebellar arteries are patent and unremarkable. No aneurysms. NECK MR ANGIOGRAM: Carotids: Great vessels demonstrate a conventional anatomy as they arise from the aortic arch. The origins of the common carotid arteries appear patent. The calibers and courses of both common carotid arteries are normal. The bifurcation regions appear normal bilaterally. The internal carotid arteries demonstrate normal course and caliber. Posterior circulation: The right vertebral artery is normal in course and caliber without definite high grade narrowing appreciated. There is mild atherosclerotic irregularity along the origin of the right vertebral artery. Mild tortuosity of the vertebral artery is present. The left vertebral artery is occluded from the level of the origin. Only minimal flow is seen within the distal aspect of the left vertebral artery near the basilar artery, which may be related to collateral vessels or retrograde flow from the right vertebral artery/basilar artery. Miscellaneous: Subclavian arteries appear patent. Pre-contrast images through the neck show no soft tissue abnormalities. IMPRESSION: BRAIN MRI: 1. Right posterior cerebral artery infarction with acute ischemia noted involving the right parietal-occipital region, the right parahippocampal gyrus and superior margins of the right posterior frontal lobe. No hemorrhagic conversion is evident involving these infarcted regions. 2. Small subarachnoid hemorrhage overlying the left temporal occipital region is unusual in the setting of stroke. Please correlate clinically for possible recent head trauma. Followup CT imaging would be of value. 3. Chronic small vessel ischemic changes. 4. Mild parenchymal volume loss. BRAIN MR ANGIOGRAM: 1. Occluded right posterior cerebral artery. Diminutive flow versus occlusion of the right superior cerebellar artery. 2. Irregularity of the basilar artery is suspicious for a dissection. There is no aneurysm. 3. The anterior circulation of the brain is within normal limits. NECK MR ANGIOGRAM: 1. Occluded left vertebral artery is suspicious for dissection. However, chronic long-standing occlusion or occlusion related to atherosclerosis cannot be excluded. 2. Mild atherosclerosis of the origin of the right vertebral artery with mild tortuosity of the vessel without occlusion or high-grade narrowing. 3. No significant atherosclerosis of the bilateral common carotid arteries or internal carotid arteries. There is no aneurysms, high-grade stenoses, or occlusions. Note: These findings were discussed with Dr. Singh at 1425 hours (PST) on 10/20. The estimate of stenosis included in the report of the imaging study was calculated using the NASCET method Dictated by: Jose Enrique Diaz M.D. on 10/20/2016 at 13:31 Approved by: Jose Enrique Diaz M.D. on 10/20/2016 at 13:31 PROCEDURE: CT BRAIN WITHOUT CONTRAST ([id number]) INDICATIONS: Weakness and left neglect TECHNIQUE: Noncontrast 4.5 mm thick angled axial sections acquired from the foramen magnum to the vertex, with coronal reformats. COMPARISON: [facility], CT, CT HEAD WO CONTRAST, 06/02/2016, 9:49 PM. FINDINGS: Image quality: Excellent. CSF spaces: Basal cisterns are patent. The ventricles are symmetric in size and shape. There is mild cerebral volume loss, with resultant ventricular and sulcal prominence. Brain: There is effacement of garner-white matter differentiation as well as cortical and subcortical hyperattenuation involving a moderate sized region in the medial right occipital lobe consistent with an acute to subacute infarct. No associated hemorrhagic conversion. However, within the posterior left temporal lobe, there is subtle high attenuation along a few sulci suspicious for a small amount of subarachnoid hemorrhage. In the right padilla radiata, there is an indistinct hypodensity which is new from the prior study and suggestive of a lacunar infarct of indeterminate acuity. There are also subcortical, periventricular and deep white matter hypodensities consistent with mild to moderate chronic small vessel ischemic changes. There is intracranial internal carotid artery atherosclerosis. Skull and face: Calvarium and visualized facial bones appear intact, without suspicious lesions. Sinuses: Visualized sinuses and mastoids are clear. IMPRESSION: 1. Acute or subacute infarct involving the right occipital lobe without associated hemorrhagic conversion. 2. Suggestion of a small amount of subarachnoid hemorrhage along the posterior left temporal lobe. 3. Small hypodensity in the right padilla radiata compatible with a small lacunar infarct of indeterminate acuity. 4. Mild cerebral volume loss and chronic white matter small vessel ischemic changes. Recommend further evaluation with MRI if clinically indicated. Dictated by: Bo Shepard M.D. on 10/20/2016 at 9:37 Approved by: Bo Shepard M.D. on 10/20/2016 at 9:37 PROCEDURE: X-RAY CHEST ONE VIEW, PORTABLE ([id number]) INDICATIONS: Weakness TECHNIQUE: One view of the chest was acquired. COMPARISON: [facility], CR, XR CHEST 1V PORTABLE, 06/02/2016, 8: 37 PM. FINDINGS: Surgical changes and devices: None. Lungs and pleura: The patient limited by patient rotation. No definite pleural effusions or pneumothorax. No definite consolidation. There is a nodular opacity in the left superhilar region likely corresponding to complement vascular structures. Mediastinum: Heart size is enlarged. Bones and chest wall: No suspicious bony lesions. Overlying soft tissues appear unremarkable. IMPRESSION: 1. Limited study due to patient rotation demonstrates no definite consolidation. Recommend repeat study if clinical concern persists. 2. Cardiomegaly. Dictated by: Bo Shepard M.D. on 10/20/2016 at 12:05 Approved by: Bo Shepard M.D. on 10/20/2016 at 12:05 PROCEDURE: CT BRAIN WITHOUT CONTRAST ([id number]) INDICATIONS: Follow up for [facility] TECHNIQUE: Noncontrast 4.5 mm thick angled axial sections acquired from the foramen magnum to the vertex, with coronal reformats. COMPARISON: [facility], CT, CT BRAIN WO CON, 10/20/2016, 8:48. FINDINGS: Image quality: Excellent. CSF spaces: Basal cisterns are patent. No extra-axial fluid collections. The ventricles are symmetric in size and shape. Brain: No definite intracranial bleeds or masses but there is mild interval increased mass effect from the medial right posterior occipital infarction, effacing the occipital horn of the right lateral ventricle to a greater degree. No hemorrhagic transformation of this infarction is found. The subtle areas of mild elevated radiodensity at several sulci of the posterior left temporal lobe do not reach the threshold for diagnosis of subarachnoid hemorrhage. There is cerebral volume loss for age, with resultant ventricular and sulcal prominence. There are periventricular and deep white matter chronic small vessel ischemic changes. There is intracranial internal carotid artery atherosclerosis. Skull and face: Calvarium and visualized facial bones appear intact, without suspicious lesions. Sinuses: Visualized sinuses and mastoids are clear. IMPRESSION: Evolution of mild edema associated with a medial right occipital stroke, which has not developed evidence of hemorrhagic transformation. Mild increased mass effect associated, as noted. There is no definite identified focus of subarachnoid hemorrhage. The several subtle areas of increased radiodensity along several left posterior temporal sulci could be more accurately assessed, however, by MR scanning if clinically desired. Any blood products in that area be easily identifiable during MR imaging. Dictated by: Yordy Vilchis M.D. on 10/21/2016 at 11:39 Approved by: Yordy Vilchis M.D. on 10/21/2016 at 11:39 Cardiac Echo Impressions Echocardiogram Report Name: HILDA MARTINEZ YStudy Date: 10/22/2016 Height: 63 in Hospital Exam Location: [facility] Weight: 206 lb Gender: Female BSA: 2.0 m2 : 1935 Age: 81 yrs BP: 163/ 69 mmHg Reason For Study: CVA Ordering Physician: [facility] Performed By: Nima Daley Referring Physician: ROBERTO SINGH Interpretation Summary Left ventricular wall thickness is mildly increased. The ejection fraction is estimated to be 60-65%. There appears to be focal mid RV free wall hypertrophy. Consider cardiac MRI to evaluate this further, if clinically indicated The interatrial septum is intact with no evidence for an atrial septal defect. The right ventricular systolic pressure is estimated at 29 mmHg assuming a right atrial pressure of 3 mm Hg. There is no obvious cardiac source of embolus noted on this transthoracic echocardiogram. Follow-up with a [facility] is suggested if cardiac source is still suspected. Assessment & Plan The patient is a pleasant 81-year-old, right-handed woman with multiple medical problems who reportedly experienced sudden onset of left-sided weakness and neglect. She was initially seen at [facility] and then transferred here. Reportedly she has a history of prior transient ischemic attacks in the past. She reports that her left knee buckled at home when using her walker. She lives with her daughter. She has had she reports 5-6 falls over the last week and has been seeing a physical therapist. She does not recall hitting her head. She describes the sudden onset of weakness of her left leg. Patient was admitted directly to the hospital service for further evaluation and treatment. # Patient has suffered a vascular accident. -Neurology was consulted and patient was seen with neurologist Dr. Riaz Blakely. His assessment and recommendations are as follows: "Clinical Cerebrovascular accident with right posterior cerebral artery occlusion resulting in acute ischemia involving the right parieto-occipital region, the right hippocampal gyrus, and the superior margins of the right posterior frontal lobe. Etiology is likely multifactorial including diabetes mellitus type 2, hypertension, and hyperlipidemia. She did have an echocardiogram, as noted above. Given the location of her stroke and the absence of any cardiac abnormalities on the telemetry monitoring, I do recommend obtaining a transesophageal echocardiogram as well as a ZIO patch as an outpatient. This is to exclude any cardioembolic etiology. My suspicion is that the stroke may have been secondary to diffuse intracranial and extracranial stenosis. In light of this, and the lack of any hemorrhagic conversion, and at this point, it being day five following her stroke, I do recommend the addition of Plavix 75 mg tomorrow to her regimen. Given the degrees intracranial and extracranial stenosis, I do recommend dual antiplatelet therapy at least at this point and for the next three months, reevaluating after three months. I recommend continuing stroke protocol, continue to optimize control of stroke risk factors. Today's NIH stroke scale remains the same at a score of 10, 1 for best gaze, 2 for complete hemianopsia, 3 for left lower extremity 4 for left upper extremity and 1 for neglect. Her visit etiology as noted above. I do believe that this is likely multifactorial due to her multiple stroke risk factors, however, I would like to exclude the possibility of a cardioembolic etiology and in light of the intracranial and extracranial stenosis I do recommend initiation of Plavix tomorrow. There is certainly a potential risk for the development of hemorrhagic conversion. However, hemorrhagic conversion is the greatest risk for the development of hemorrhagic conversion within the 1st 3-5 days and this risk does decline over time. However, after starting the Plavix I would continue to monitor her mental status closely and repeat a stat CT of her head without contrast if there is noted to be an acute mental status or neurologic change. Will continue to follow." # Cerebral edema secondary to above. Subarachnoid hemorrhage appears to have resolved as demonstrated by today's CT scan. - Patient has worsening of neurologic symptoms due to the cerebral edema. - We will start Plavix in a.m. as recommended by Dr. Blakely - Discussed this with Dr. Blakely and he believes that this will improve with time. # Hypertension. -Continue lisinopril, metoprolol is at home for now. # Diabetes mellitus type 2. -Continue glimepiride and metformin. # Hyperlipidemia. -Continue simvastatin. # Antibiotic therapy. The patient has been on fluconazole and Bactrim for unclear reasons that she is unable to describe. I suspect this is for a recent urinary tract infection. As patient has received 4 days of therapy here and is on the medication prior to admission she is likely completed a course of therapy and he is antibiotics may be discontinued Disposition: Patient to have continued PT OT and speech therapy and likely will need placement in a rehabilitation center. Will discuss further plans with Dr. Blakely. Patient will need to be transferred to a retirement facility and then when she is able to tolerate 3 hours of exercise a day will be able to be transferred to an acute rehabilitation facility. Dr. Markham to follow in a.m. for the hospital service. Pain Evaluation: Adequate Pain Control GI Prophylaxis: Proton Pump Inhibitor VTE Prophylaxis: Sub-Q Enoxaparin Resuscitation Status: CPR: Attempt Resuscitation SamanthaRoberto MD Oct 25, 2016 00:25
[2016-10-25 07:45] LABS: BASOPHILS % (AUTO) 0.1 % (0-3); EOSINOPHILS % (AUTO) 0.2 % (0-5); MONOCYTES % (AUTO) 29.7 % (4-12); Mean Corpuscular Hemoglobin 28.7 pg (27.0-35.0); Mean Corpuscular Volume 82.5 fL (81-100); NEUTROPHILS % (AUTO) 39.8 % (40-74); Platelet Count 194 bil/L (150-400)
[2016-10-25] MEDS: Pantoprazole 40 mg ER24 Tablet PO SCH (08:17)
[2016-10-25] MEDS: MeTOProlol XL 25 mg ER24 Tablet PO SCH (08:17)
[2016-10-25] MEDS: Trimethoprim-Sulfa 160 mg-800 mg Tablet PO SCH ×2 (08:18→20:34)
--- NOTE | 2016-10-25 18:04 | PCM.PNMED ---
Subjective Date of Service Oct 25, 2016 Subjective Patient seen this morning, no acute events. Has had antibiotics stopped and did pass a swallow evaluation. Seen lying supine in bed with left-sided neglect Exam Vital Signs Vital Sign - Last Date Time Temp Pulse Resp B/P Pulse Ox O2 Delivery O2 Flow Rate FiO2 10/25/16 16:39 36.3 74 18 118/67 93 Room Air Intake and Output 10/24/16 10/24/16 10/25/16 Cumulative From/Thru 15:00 23:00 07:00 10/20/16 04:18 - 10/25/16 05:21 Intake Total 586 ml 0 ml 4777 ml Output Total 1700 ml Balance 586 ml 0 ml 3077 ml Intake Oral 586 ml 0 ml 4777 ml Output Urine Total 1700 ml # Voids 3 2 29 # Bowel Movements 2 2 Exam General: Patient is in no apparent distress. However, she appears despondent due to her continued disability HEENT: Head is atraumatic normocephalic. Eyes: Pupils are equally round and reactive to light and accommodation. Extraocular muscles exhibit a right lateral gaze. Sclera are white anicteric. Subconjunctival mucosa is pink. Ears and nose are unremarkable. Oropharynx: There are no mucosal lesions, there is no thrush, there is no pharyngitis. Neck: Is supple, there are no nodes or masses or tenderness. Chest: Is clear to auscultation and percussion. There are no rales, rhonchi, wheezes or rubs. Heart: Rate , rhythm is regular. There is no murmur, rub or gallop. Abdomen: Good bowel sounds are present. Abdomen is soft, nontender, no organomegaly or masses were appreciated. Extremities: Are symmetrical and well perfused. There is no edema, there is no cellulitis, no rash. Neurologic: Patient exhibits left sided neglect. She is unable to move her left upper extremity or her left lower extremity. Patient's visual thompson are off. She has left homonymous austin-anopsia and right lateral gaze. Right-sided head rotation Psychiatric: Patients mood is calm and shows no sign of agitation. She does appear despondent. IVs and Medications Medications Reviewed: Medications were reviewed in detail Lab and Diagnostics Result Diagram: 10/25/16 0715 10/25/16 0715 X-Rays, CTs and MRIs PROCEDURE: CT ANGIO HEAD AND NECK (P) INDICATIONS: r/o dissection TECHNIQUE: Pre-contrast 4.5 mm thick sections acquired from the foramen magnum to the vertex. After the administration of intravenous contrast, 1 mm thick sections acquired from the aortic arch through the [place]. Post-contrast 4.5 mm thick sections then re-acquired from the foramen magnum to the vertex. 3- dimensional srynulk-dyydvqoyf-hgxrkuvbhc (MIP) and/or volume rendering reformats were acquired of the central intracranial vasculature and neck separately. For radiation dose reduction, the following was used: automated exposure control, adjustment of mA and/or kV according to patient size. COMPARISON: [facility], , MR STROKE PROTOCOL, 10/20/2016, 12:54. FINDINGS: Image quality: Excellent. BRAIN: CSF spaces: There is mild cerebral volume loss with prominence of the ventricles and sulci. Brain: There is a moderate sized infarct redemonstrated in the right occipital parietal lobe. There are also small infarcts along the posterior right frontal lobe demonstrated medially. Subtle subarachnoid hemorrhage along the posterior left temporal lobe is again noted. No new hemorrhage or mass effect compared to the recent study. A prior lacunar infarct redemonstrated in the right padilla radiata. Skull and face: Calvarium and facial bones appear intact, without suspicious lesions. Orbits appear normal. I Sinuses: Sinuses and mastoids are clear. HEAD CT ANGIOGRAPHY: Anterior circulation: Intracranial internal carotid arteries are patent bilaterally. There is occlusion of the right anterior cerebral artery at the level of the proximal A2 segment. There is likely collateral flow of the distal territories from the left side. The flow within the middle cerebral arteries is patent bilaterally with a short segment stenosis in the M2 segment of the right middle cerebral artery of approximately 50-60%. The anterior communicating artery is patent. No definite aneurysms. Posterior circulation: There is a diminutive distal left vertebral artery which joins with the right vertebral artery to form the basilar artery. There is focal narrowing in the mid basilar artery of approximately 50%. There is persistent circulation with the right posterior cerebral artery supplied by the posterior communicating artery. There is a short segment stenosis within the P2 segment of the right posterior cerebral artery with narrowing of approximately 60-70%. The left posterior cerebral artery appears patent. NECK CT ANGIOGRAPHY: Carotid system: The great vessels demonstrate conventional anatomy as they arise from the aortic arch. The origins of the common carotid arteries appear patent. The common carotid arteries demonstrate normal caliber and courses. The carotid bulbs appear widely patent. The internal carotid arteries demonstrate normal calibers and courses. Posterior circulation: The origin of the left vertebral artery is not well- visualized. There is a long segment occlusion of the proximal left vertebral artery with reconstitution distally at the level of C2. The right vertebral artery appears patent. Soft tissues: The thyroid is heterogeneous in appearance with small indistinct nodules bilaterally as well as multiple foci of calcifications. Bones: No suspicious bony lesions. There is straightening of the cervical lordosis with multilevel degenerative changes including severe disc space narrowing at C5-C6 with endplate osteophytosis and sclerosis. IMPRESSION: 1. 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 The etiology of the chronic occlusion is indeterminate but likely atherosclerotic. 2. Occlusion of the distal right anterior cerebral artery at the level of the proximal A2 segment with likely collateral flow distally from the left side. 3. Short segment stenosis of approximately 50-60% in the M2 segment of the right middle cerebral artery. 4. Short segment stenosis in the P2 segment of the right posterior cerebral artery of approximately 60-70%. 5. Right occipital and posterior frontal lobe infarcts redemonstrated as seen on the recent MRI. 5. Small amount of left subarachnoid hemorrhage redemonstrated along the temporal lobe. No definite new foci of hemorrhage. Dictated by: Bo Shepard M.D. on 10/20/2016 at 17:21 Approved by: Bo Shepard M.D. on 10/20/2016 at 17:21 PROCEDURE: MRI STROKE PROTOCOL ([id number]) Pre- and post-contrast brain MRI, non-contrast brain MR angiogram, pre- and postcontrast neck MR angiogram INDICATIONS: CT (+) stroke TECHNIQUE: Brain: Noncontrast axial T1 spin echo, axial T2 fast spin echo, sagittal and axial FLAIR, coronal T2 fast spin echo, axial gradient echo, axial diffusion and ADC through the brain. After the administration of contrast, axial 3D VIBE of the cranial vasculature and brain. Brain MRA: Non-contrast 3-D time of flight MR angiogram, with multiple maximum- intensity-projection (MIP) reformats performed. Neck MRA: Axial and sagittal TruFISP through the neck. Coronal dynamic MR angiogram during administration of contrast in the arterial and venous phases, with 3-dimenstional pgnxzfu-wslfzyhab-fobtphfwls (MIP) reformats constructed from subtraction images. COMPARISON: [facility], CT, CT BRAIN WO CON, 10/20/2016, 8:48. FINDINGS: Image quality: Diagnostic. BRAIN: Brain: There is no acute intra-axial hemorrhage. Subtle areas of increased flair signal are identified along the arachnoid space involving the left temporal occipital region (image 10, series 5), compatible with a subarachnoid hemorrhage comment especially when combined with the CT findings. No extra- axial fluid collection is identified. There is no midline shift or mass effect. The orbits are grossly unremarkable. There is a diffuse area of vague increased signal on the flair images involving the posterior right parieto- occipital region and posterior right frontal region near the convexity. Corresponding increased signal within these regions on the diffusion images is present. A small area of increased diffusion and flair signal is noted involving the parahippocampal gyrus is also present at the right temporal lobe. No hemorrhagic conversion is appreciated. Mild decreased enhancement involving these regions is present on the postcontrast images. Additional foci of increased flair signal within the deep white matter of the supratentorial brain are present. The midline intracranial structures are within normal limits. No parenchymal masses are identified. The ventricles and cortical sulci mildly prominent. Bones: The imaged osseous structures are grossly intact. No suspicious osseous lesions are identified. The included paranasal sinuses and mastoid air cells are clear. Extracranial soft tissues: The imaged overlying soft tissues of the face and head are grossly unremarkable. BRAIN MR ANGIOGRAM: Anterior circulation: Intracranial internal carotid arteries are normal in size and enhancement. The flow within the paired anterior cerebral arteries is normal and symmetric. The flow within the middle cerebral arteries is normal and symmetric. The anterior communicating artery is seen. No stenoses, occlusions, or aneurysms. Posterior circulation: The left vertebral artery is diminutive and likely occluded. There is irregularity of the basilar artery. Reduced or absent flow of the right posterior cerebral artery is present. A similar appearance is noted involving the right superior cerebellar artery. The left posterior cerebral artery and cerebellar arteries are patent and unremarkable. No aneurysms. NECK MR ANGIOGRAM: Carotids: Great vessels demonstrate a conventional anatomy as they arise from the aortic arch. The origins of the common carotid arteries appear patent. The calibers and courses of both common carotid arteries are normal. The bifurcation regions appear normal bilaterally. The internal carotid arteries demonstrate normal course and caliber. Posterior circulation: The right vertebral artery is normal in course and caliber without definite high grade narrowing appreciated. There is mild atherosclerotic irregularity along the origin of the right vertebral artery. Mild tortuosity of the vertebral artery is present. The left vertebral artery is occluded from the level of the origin. Only minimal flow is seen within the distal aspect of the left vertebral artery near the basilar artery, which may be related to collateral vessels or retrograde flow from the right vertebral artery/basilar artery. Miscellaneous: Subclavian arteries appear patent. Pre-contrast images through the neck show no soft tissue abnormalities. IMPRESSION: BRAIN MRI: 1. Right posterior cerebral artery infarction with acute ischemia noted involving the right parietal-occipital region, the right parahippocampal gyrus and superior margins of the right posterior frontal lobe. No hemorrhagic conversion is evident involving these infarcted regions. 2. Small subarachnoid hemorrhage overlying the left temporal occipital region is unusual in the setting of stroke. Please correlate clinically for possible recent head trauma. Followup CT imaging would be of value. 3. Chronic small vessel ischemic changes. 4. Mild parenchymal volume loss. BRAIN MR ANGIOGRAM: 1. Occluded right posterior cerebral artery. Diminutive flow versus occlusion of the right superior cerebellar artery. 2. Irregularity of the basilar artery is suspicious for a dissection. There is no aneurysm. 3. The anterior circulation of the brain is within normal limits. NECK MR ANGIOGRAM: 1. Occluded left vertebral artery is suspicious for dissection. However, chronic long-standing occlusion or occlusion related to atherosclerosis cannot be excluded. 2. Mild atherosclerosis of the origin of the right vertebral artery with mild tortuosity of the vessel without occlusion or high-grade narrowing. 3. No significant atherosclerosis of the bilateral common carotid arteries or internal carotid arteries. There is no aneurysms, high-grade stenoses, or occlusions. Note: These findings were discussed with Dr. Singh at 1425 hours ([facility]) on 10/20. The estimate of stenosis included in the report of the imaging study was calculated using the NASCET method Dictated by: Jose Enrique Diaz M.D. on 10/20/2016 at 13:31 Approved by: Jose Enrique Diaz M.D. on 10/20/2016 at 13:31 PROCEDURE: CT BRAIN WITHOUT CONTRAST ([id number]) INDICATIONS: Weakness and left neglect TECHNIQUE: Noncontrast 4.5 mm thick angled axial sections acquired from the foramen magnum to the vertex, with coronal reformats. COMPARISON: [facility], CT, CT HEAD WO CONTRAST, 06/02/2016, 9:49 PM. FINDINGS: Image quality: Excellent. CSF spaces: Basal cisterns are patent. The ventricles are symmetric in size and shape. There is mild cerebral volume loss, with resultant ventricular and sulcal prominence. Brain: There is effacement of garner-white matter differentiation as well as cortical and subcortical hyperattenuation involving a moderate sized region in the medial right occipital lobe consistent with an acute to subacute infarct. No associated hemorrhagic conversion. However, within the posterior left temporal lobe, there is subtle high attenuation along a few sulci suspicious for a small amount of subarachnoid hemorrhage. In the right padilla radiata, there is an indistinct hypodensity which is new from the prior study and suggestive of a lacunar infarct of indeterminate acuity. There are also subcortical, periventricular and deep white matter hypodensities consistent with mild to moderate chronic small vessel ischemic changes. There is intracranial internal carotid artery atherosclerosis. Skull and face: Calvarium and visualized facial bones appear intact, without suspicious lesions. Sinuses: Visualized sinuses and mastoids are clear. IMPRESSION: 1. Acute or subacute infarct involving the right occipital lobe without associated hemorrhagic conversion. 2. Suggestion of a small amount of subarachnoid hemorrhage along the posterior left temporal lobe. 3. Small hypodensity in the right padilla radiata compatible with a small lacunar infarct of indeterminate acuity. 4. Mild cerebral volume loss and chronic white matter small vessel ischemic changes. Recommend further evaluation with MRI if clinically indicated. Dictated by: Bo Shepard M.D. on 10/20/2016 at 9:37 Approved by: Bo Shepard M.D. on 10/20/2016 at 9:37 PROCEDURE: X-RAY CHEST ONE VIEW, PORTABLE ([id number]) INDICATIONS: Weakness TECHNIQUE: One view of the chest was acquired. COMPARISON: [facility], CR, XR CHEST 1V PORTABLE, 06/02/2016, 8: 37 PM. FINDINGS: Surgical changes and devices: None. Lungs and pleura: The patient limited by patient rotation. No definite pleural effusions or pneumothorax. No definite consolidation. There is a nodular opacity in the left superhilar region likely corresponding to complement vascular structures. Mediastinum: Heart size is enlarged. Bones and chest wall: No suspicious bony lesions. Overlying soft tissues appear unremarkable. IMPRESSION: 1. Limited study due to patient rotation demonstrates no definite consolidation. Recommend repeat study if clinical concern persists. 2. Cardiomegaly. Dictated by: Bo Shepard M.D. on 10/20/2016 at 12:05 Approved by: Bo Shepard M.D. on 10/20/2016 at 12:05 PROCEDURE: CT BRAIN WITHOUT CONTRAST ([id number]) INDICATIONS: Follow up for [facility] TECHNIQUE: Noncontrast 4.5 mm thick angled axial sections acquired from the foramen magnum to the vertex, with coronal reformats. COMPARISON: [facility], CT, CT BRAIN WO CON, 10/20/2016, 8:48. FINDINGS: Image quality: Excellent. CSF spaces: Basal cisterns are patent. No extra-axial fluid collections. The ventricles are symmetric in size and shape. Brain: No definite intracranial bleeds or masses but there is mild interval increased mass effect from the medial right posterior occipital infarction, effacing the occipital horn of the right lateral ventricle to a greater degree. No hemorrhagic transformation of this infarction is found. The subtle areas of mild elevated radiodensity at several sulci of the posterior left temporal lobe do not reach the threshold for diagnosis of subarachnoid hemorrhage. There is cerebral volume loss for age, with resultant ventricular and sulcal prominence. There are periventricular and deep white matter chronic small vessel ischemic changes. There is intracranial internal carotid artery atherosclerosis. Skull and face: Calvarium and visualized facial bones appear intact, without suspicious lesions. Sinuses: Visualized sinuses and mastoids are clear. IMPRESSION: Evolution of mild edema associated with a medial right occipital stroke, which has not developed evidence of hemorrhagic transformation. Mild increased mass effect associated, as noted. There is no definite identified focus of subarachnoid hemorrhage. The several subtle areas of increased radiodensity along several left posterior temporal sulci could be more accurately assessed, however, by MR scanning if clinically desired. Any blood products in that area be easily identifiable during MR imaging. Dictated by: Yordy Vilchis M.D. on 10/21/2016 at 11:39 Approved by: Yordy Vilchis M.D. on 10/21/2016 at 11:39 Cardiac Echo Impressions Echocardiogram Report Name: HILDA MARTINEZ YStudy Date: 0 10/22/2016 Height: 63 in Hospital Exam Location: [facility] Weight: 206 lb Gender: Female BSA: 2.0 m2 : 1935 Age: 81 yrs BP: 163/ 69 mmHg Reason For Study: CVA Ordering Physician: HOSPITALIST [facility] Performed By: Nima Daley Referring Physician: PAULINA SINGH Interpretation Summary Left ventricular wall thickness is mildly increased. The ejection fraction is estimated to be 60-65%. There appears to be focal mid RV free wall hypertrophy. Consider cardiac MRI to evaluate this further, if clinically indicated The interatrial septum is intact with no evidence for an atrial septal defect. The right ventricular systolic pressure is estimated at 29 mmHg assuming a right atrial pressure of 3 mm Hg. There is no obvious cardiac source of embolus noted on this transthoracic echocardiogram. Follow-up with a [facility] is suggested if cardiac source is still suspected. Assessment & Plan The patient is a pleasant 81-year-old, right-handed woman with multiple medical problems who reportedly experienced sudden onset of left-sided weakness and neglect. She was initially seen at [facility] and then transferred here. Reportedly she has a history of prior transient ischemic attacks in the past. She reports that her left knee buckled at home when using her walker. She lives with her daughter. She has had she reports 5-6 falls over the last week and has been seeing a physical therapist. She does not recall hitting her head. She describes the sudden onset of weakness of her left leg. Patient was admitted directly to the hospital service for further evaluation and treatment. # Patient has suffered a vascular accident. -Neurology was consulted and patient was seen with neurologist Dr. Riaz Blakely. His assessment and recommendations are as follows: "Clinical Cerebrovascular accident with right posterior cerebral artery occlusion resulting in acute ischemia involving the right parieto-occipital region, the right hippocampal gyrus, and the superior margins of the right posterior frontal lobe. Etiology is likely multifactorial including diabetes mellitus type 2, hypertension, and hyperlipidemia. She did have an echocardiogram, as noted above. Given the location of her stroke and the absence of any cardiac abnormalities on the telemetry monitoring, I do recommend obtaining a transesophageal echocardiogram as well as a ZIO patch as an outpatient. This is to exclude any cardioembolic etiology. My suspicion is that the stroke may have been secondary to diffuse intracranial and extracranial stenosis. In light of this, and the lack of any hemorrhagic conversion, and at this point, it being day five following her stroke, I do recommend the addition of Plavix 75 mg tomorrow to her regimen. Given the degrees intracranial and extracranial stenosis, I do recommend dual antiplatelet therapy at least at this point and for the next three months, reevaluating after three months. I recommend continuing stroke protocol, continue to optimize control of stroke risk factors. Today's NIH stroke scale remains the same at a score of 10, 1 for best gaze, 2 for complete hemianopsia, 3 for left lower extremity 4 for left upper extremity and 1 for neglect. Her visit etiology as noted above. I do believe that this is likely multifactorial due to her multiple stroke risk factors, however, I would like to exclude the possibility of a cardioembolic etiology and in light of the intracranial and extracranial stenosis I do recommend initiation of Plavix tomorrow. There is certainly a potential risk for the development of hemorrhagic conversion. However, hemorrhagic conversion is the greatest risk for the development of hemorrhagic conversion within the 1st 3-5 days and this risk does decline over time. However, after starting the Plavix I would continue to monitor her mental status closely and repeat a stat CT of her head without contrast if there is noted to be an acute mental status or neurologic change. Will continue to follow." # Cerebral edema secondary to above. Subarachnoid hemorrhage appears to have resolved as demonstrated by today's CT scan. - Patient has worsening of neurologic symptoms due to the cerebral edema. - We will start Plavix in a.m. as recommended by Dr. Blakely - Discussed this with Dr. Blakely and he believes that this will improve with time. # Hypertension. -Continue lisinopril, metoprolol is at home for now. # Diabetes mellitus type 2. -Continue glimepiride and metformin. # Hyperlipidemia. -Continue simvastatin. # Antibiotic therapy. The patient has been on fluconazole and Bactrim, now discontinued - for possible UTI? Disposition: Patient to have continued PT OT and speech therapy and likely will need placement in a rehabilitation center. Will discuss further plans with Dr. Blakely. Patient will need to be transferred to a senior living facility and then when she is able to tolerate 3 hours of exercise a day will be able to be transferred to an acute rehabilitation facility. Pain Evaluation: Adequate Pain Control GI Prophylaxis: Proton Pump Inhibitor VTE Prophylaxis: Sub-Q Enoxaparin Resuscitation Status: CPR: Attempt Resuscitation Time spent 35 minutes spent with evaluation and management Jorge Markham DO Oct 25, 2016 18:04
--- NOTE | 2016-10-25 18:04 | NUR ---
LOC Pt was drowsy and confused during am. As the day progressed the pt was able to respond to commands better and was able to speak clearly. She still has some delay answering questions. Pt provided a quiet environment and continually checked on throughout the day. She is turned q2hrs by TAPE LIBRARIAN and RN student and asked how she is doing. Will continue to monitor.
--- NOTE | 2016-10-25 18:34 | NUR ---
Mobiltiy and neuro status: Patients left side arm and leg remain flacid. 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 Per Physical Therapy patient was able to sit on the edge of her bed and balance without falling over. Patient is able to communicate verbally and respond appropriately to questions.
--- NOTE | 2016-10-25 22:40 | CONS ---
[address] [address] CONSULTATION REPORT PATIENT: HILDA MARTINEZ : 1935 MR#: [id number] ADMIT: 10/20/2016 JOB ID: [id number] DATE OF SERVICE: 10/24/2016 SUBJECTIVE: The patient continues to be awake and alert. No overnight events. She reports that she is no longer having any headaches. She does appear to be more alert and awake even when compared to the day before. It appears that she does have a mild degree of apathy. However, it is unclear how much of this is secondary to depression. PHYSICAL EXAMINATION: Temperature 36.6, pulse of 64, respiratory rate of 19, blood pressure 123/78, pulse oximetry 98% on room air. General: She is a well-developed, well-nourished woman in no acute distress. Head: Normocephalic, atraumatic. Neck was supple. No carotid bruits were auscultated. Chest was clear to auscultation. Heart: Regular rate and rhythm. Abdomen: Soft, nondistended, nontender. Extremities: No cyanosis, clubbing, or edema. NEUROLOGIC EXAMINATION: Mental status: She is awake, alert, and oriented x3. Speech is clear and fluent with intact comprehension. There was no aphasia. There was a prominent gaze preference to the right with neglect to the left side. Cranial nerve examination revealed that pupils were equal, round, reactive to light and accommodation. Face appeared symmetrical. Facial sensation was intact to light touch and temperature. There was a left homonymous hemianopsia noted. There was a prominent right gaze preference noted. Auditory sensation was intact to finger rub bilaterally. Palatal elevation was symmetrical. Tongue was midline. Sternocleidomastoid and trapezii were 5/5 bilaterally. Motor: Still today dense hemiparesis involving the left upper and left lower extremities, however, with some degree of orientation to her left upper and left lower extremities she appeared to be able to temporarily lift the left upper extremity against gravity although she was unable to lift her left lower extremity against gravity. Sensation was intact to light touch and temperature. Deep tendon reflexes were diminished throughout. There was a trace Babinski sign on the left. Gait was deferred. IMPRESSION: Cerebrovascular accident with a right posterior cerebral artery occlusion resulting in acute ischemia involving the right parieto-occipital region, the right hippocampal gyrus and the superior margins of the right posterior frontal lobe. I would continue physical therapy/occupational therapy. She would benefit from inpatient rehabilitation. I do recommend the addition of Plavix to her regimen so that she would have dual antiplatelet therapy given the degree of intracranial and extracranial stenosis. I also do recommend a repeat CT of her head without contrast if there is any change in mental status or if she develops any new neurologic symptoms. Continue to optimize control of stroke risk factors. She would benefit from placement in a rehabilitation center. Thank you, again, Dr. Singh, for allowing me to participate in the care of your patient. Please feel free to contact me with any questions or concerns.
--- NOTE | 2016-10-25 22:45 | PROG NOTE ---
[address] [address] PROGRESS NOTE PATIENT: HILDA MARTINEZ : 1935 MR#: [id number] ADMIT: 10/20/2016 JOB ID: [id number] DATE: 10/25/2016 NEUROLOGY PROGRESS NOTE SUBJECTIVE: The patient reports no headaches. She still has dense left hemipareses. No other new neurologic symptoms. FARHAD still appears to be pending. PHYSICAL EXAMINATION: Vital signs: Temperature 36.9, pulse of 69, respiratory rate of 18, blood pressure 143/76, pulse oximetry 95% on room air. General: She is a well-developed, well-nourished woman in no acute distress. Head: Normocephalic, atraumatic. Neck is supple. No carotid bruits were auscultated. Chest clear to auscultation. Heart: Regular rate and rhythm. Abdomen: Soft, nondistended, nontender. Extremities: No cyanosis, clubbing, or edema. NEUROLOGIC EXAMINATION: Mental status: She is awake, alert, and oriented x3. Speech is clear and fluent with intact comprehension. There was no aphasia. There is a prominent gaze preference to the right with neglect of the left side. Cranial nerves: Pupils equal, round, reactive to light and accommodation. Face appeared symmetrical. Facial sensation was intact to light touch and temperature. There was a left homonymous hemianopsia noted. There was a prominent right gaze preference noted. Auditory sensation was intact to finger rub bilaterally. Palatal elevation was symmetrical. Tongue was midline. Sternocleidomastoid and trapezii are 5/5 bilaterally. Motor: Again today dense left hemiparesis. For me, she was unable to move her fingers or toes. She was able to recognize the left versus the right side of her body and able to recognize that the left upper and left lower extremities were her left upper and left lower extremities. Sensation was intact to light touch and temperature. Deep tendon reflexes were diminished throughout. There was a trace positive Babinski on the left. Gait was deferred. MEDICATIONS: 1. Tylenol p.r.n. 2. Maalox p.r.n. 3. Aspirin 325 mg daily. 4. Atorvastatin 20 mg p.o. q.h.s. 5. Clopidogrel 75 mg daily. 6. Lovenox 40 mg subcu daily. 7. Glimepiride. 8. Lisinopril. 9. Loratadine. 10. Metformin. 11. Metoprolol. 12. Zofran p.r.n. 13. Protonix 40 mg. 14. Multivitamins. 15. Bactrim. IMPRESSION: Cerebrovascular accident with a right posterior cerebral artery occlusion resulting in acute ischemia involving the right parieto-occipital region, the right hippocampal gyrus, and the superior margins of the right posterior frontal lobe. I do suspect that the etiology is likely multifactorial including diabetes mellitus type 2, hypertension and hyperlipidemia. However, given the location of the stroke I do recommend obtaining a transesophageal echocardiogram to exclude the possibility of a cardioembolic etiology. So far, telemetry studies have not revealed any evidence of paroxysmal atrial fibrillation according to nursing staff. Given the persistence of her symptoms, I do recommend obtaining a repeat CT of her head without contrast tomorrow morning. I do recommend continued optimization of control of her stroke risk factors. I do recommend dual antiplatelet therapy at least for the next three months and then just continuing on Plavix 75 mg daily given the degree of intracranial and extracranial stenosis. I recommend continuing physical therapy/occupational therapy. She would also benefit from inpatient rehabilitation. We will continue to follow. Thank you again, Dr. Singh, for allowing me to participate in the care of your patient. Please feel free to contact me with any questions or concerns.
[2016-10-26] VITALS (11 sets, daily range): BP systolic 106–147; BP diastolic 70–84; PULSE 60–73; RESP 18–22; O2SAT 93–95
--- NOTE | 2016-10-26 02:53 | NUR ---
Neuro's Pt left side continues to be flaccid. 2PA for bedpan. 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 Alert and oriented to self. Cooperative with care. Frequent turning during the night. Will continue to monitor.
--- NOTE | 2016-10-26 07:32 | PCM.PNMED ---
Subjective Date of Service Oct 26, 2016 Subjective no acute events overnight, repeat CT today, continue PT/OT, monitor nutrition/ intake Exam Vital Signs Vital Sign - Last Date Time Temp Pulse Resp B/P Pulse Ox O2 Delivery O2 Flow Rate FiO2 10/26/16 05:53 37.0 60 18 126/80 93 Room Air Intake and Output 10/25/16 10/25/16 10/26/16 Cumulative From/Thru 15:00 23:00 07:00 10/20/16 04:18 - 10/25/16 21:58 Intake Total 686 ml 5463 ml Output Total 1700 ml Balance 686 ml 3763 ml Intake Oral 686 ml 5463 ml Output Urine Total 1700 ml # Voids 2 31 # Bowel Movements 2 4 Exam General: Patient is in no apparent distress. HEENT: Head is atraumatic normocephalic. Eyes: Pupils are equally round and reactive to light and accommodation. Extraocular muscles exhibit a right lateral gaze. Sclera are white anicteric. Subconjunctival mucosa is pink. Ears and nose are unremarkable. Oropharynx: There are no mucosal lesions, there is no thrush, there is no pharyngitis. Chest: Is clear to auscultation and percussion. There are no rales, rhonchi, wheezes or rubs. Heart: Rate , rhythm is regular. There is no murmur, rub or gallop. Abdomen: Good bowel sounds are present. Abdomen is soft, nontender, no organomegaly or masses were appreciated. Extremities: Are symmetrical and well perfused. There is no edema, there is no cellulitis, no rash. Neurologic: Patient exhibits left sided neglect. She is unable to move her left upper extremity or her left lower extremity. She has left homonymous austin- anopsia and right lateral gaze. Right-sided head rotation Psychiatric: Patients mood is calm and shows no sign of agitation. IVs and Medications Medications Reviewed: Medications were reviewed in detail Lab and Diagnostics Result Diagram: 10/25/1671410/25/16714 X-Rays, CTs and MRIs PROCEDURE: CT ANGIO HEAD AND NECK (P) INDICATIONS: r/o dissection TECHNIQUE: Pre-contrast 4.5 mm thick sections acquired from the foramen magnum to the vertex. After the administration of intravenous contrast, 1 mm thick sections acquired from the aortic arch through the [place]. Post-contrast 4.5 mm thick sections then re-acquired from the foramen magnum to the vertex. 3- dimensional phhdtkp-fnhiokkzr-pwjnfxagfu (MIP) and/or volume rendering reformats were acquired of the central intracranial vasculature and neck separately. For radiation dose reduction, the following was used: automated exposure control, adjustment of mA and/or kV according to patient size. COMPARISON: [facility], , MR STROKE PROTOCOL, 10/20/2016, 12:54. FINDINGS: Image quality: Excellent. BRAIN: CSF spaces: There is mild cerebral volume loss with prominence of the ventricles and sulci. Brain: There is a moderate sized infarct redemonstrated in the right occipital parietal lobe. There are also small infarcts along the posterior right frontal lobe demonstrated medially. Subtle subarachnoid hemorrhage along the posterior left temporal lobe is again noted. No new hemorrhage or mass effect compared to the recent study. A prior lacunar infarct redemonstrated in the right padilla radiata. Skull and face: Calvarium and facial bones appear intact, without suspicious lesions. Orbits appear normal. I Sinuses: Sinuses and mastoids are clear. HEAD CT ANGIOGRAPHY: Anterior circulation: Intracranial internal carotid arteries are patent bilaterally. There is occlusion of the right anterior cerebral artery at the level of the proximal A2 segment. There is likely collateral flow of the distal territories from the left side. The flow within the middle cerebral arteries is patent bilaterally with a short segment stenosis in the M2 segment of the right middle cerebral artery of approximately 50-60%. The anterior communicating artery is patent. No definite aneurysms. Posterior circulation: There is a diminutive distal left vertebral artery which joins with the right vertebral artery to form the basilar artery. There is focal narrowing in the mid basilar artery of approximately 50%. There is persistent circulation with the right posterior cerebral artery supplied by the posterior communicating artery. There is a short segment stenosis within the P2 segment of the right posterior cerebral artery with narrowing of approximately 60-70%. The left posterior cerebral artery appears patent. NECK CT ANGIOGRAPHY: Carotid system: The great vessels demonstrate conventional anatomy as they arise from the aortic arch. The origins of the common carotid arteries appear patent. The common carotid arteries demonstrate normal caliber and courses. The carotid bulbs appear widely patent. The internal carotid arteries demonstrate normal calibers and courses. Posterior circulation: The origin of the left vertebral artery is not well- visualized. There is a long segment occlusion of the proximal left vertebral artery with reconstitution distally at the level of C2. The right vertebral artery appears patent. Soft tissues: The thyroid is heterogeneous in appearance with small indistinct nodules bilaterally as well as multiple foci of calcifications. Bones: No suspicious bony lesions. There is straightening of the cervical lordosis with multilevel degenerative changes including severe disc space narrowing at C5-C6 with endplate osteophytosis and sclerosis. IMPRESSION: 1. 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 The etiology of the chronic occlusion is indeterminate but likely atherosclerotic. 2. Occlusion of the distal right anterior cerebral artery at the level of the proximal A2 segment with likely collateral flow distally from the left side. 3. Short segment stenosis of approximately 50-60% in the M2 segment of the right middle cerebral artery. 4. Short segment stenosis in the P2 segment of the right posterior cerebral artery of approximately 60-70%. 5. Right occipital and posterior frontal lobe infarcts redemonstrated as seen on the recent MRI. 5. Small amount of left subarachnoid hemorrhage redemonstrated along the temporal lobe. No definite new foci of hemorrhage. Dictated by: Bo Shepard M.D. on 10/20/2016 at 17:21 Approved by: Bo Shepard M.D. on 10/20/2016 at 17:21 PROCEDURE: MRI STROKE PROTOCOL ([id number]) Pre- and post-contrast brain MRI, non-contrast brain MR angiogram, pre- and postcontrast neck MR angiogram INDICATIONS: CT (+) stroke TECHNIQUE: Brain: Noncontrast axial T1 spin echo, axial T2 fast spin echo, sagittal and axial FLAIR, coronal T2 fast spin echo, axial gradient echo, axial diffusion and ADC through the brain. After the administration of contrast, axial 3D VIBE of the cranial vasculature and brain. Brain MRA: Non-contrast 3-D time of flight MR angiogram, with multiple maximum- intensity-projection (MIP) reformats performed. Neck MRA: Axial and sagittal TruFISP through the neck. Coronal dynamic MR angiogram during administration of contrast in the arterial and venous phases, with 3-dimenstional ivbpvji-qlexhryqe-ufaeughpcy (MIP) reformats constructed from subtraction images. COMPARISON: [facility], CT, CT BRAIN WO CON, 10/20/2016, 8:48. FINDINGS: Image quality: Diagnostic. BRAIN: Brain: There is no acute intra-axial hemorrhage. Subtle areas of increased flair signal are identified along the arachnoid space involving the left temporal occipital region (image 10, series 5), compatible with a subarachnoid hemorrhage comment especially when combined with the CT findings. No extra- axial fluid collection is identified. There is no midline shift or mass effect. The orbits are grossly unremarkable. There is a diffuse area of vague increased signal on the flair images involving the posterior right parieto- occipital region and posterior right frontal region near the convexity. Corresponding increased signal within these regions on the diffusion images is present. A small area of increased diffusion and flair signal is noted involving the parahippocampal gyrus is also present at the right temporal lobe. No hemorrhagic conversion is appreciated. Mild decreased enhancement involving these regions is present on the postcontrast images. Additional foci of increased flair signal within the deep white matter of the supratentorial brain are present. The midline intracranial structures are within normal limits. No parenchymal masses are identified. The ventricles and cortical sulci mildly prominent. Bones: The imaged osseous structures are grossly intact. No suspicious osseous lesions are identified. The included paranasal sinuses and mastoid air cells are clear. Extracranial soft tissues: The imaged overlying soft tissues of the face and head are grossly unremarkable. BRAIN MR ANGIOGRAM: Anterior circulation: Intracranial internal carotid arteries are normal in size and enhancement. The flow within the paired anterior cerebral arteries is normal and symmetric. The flow within the middle cerebral arteries is normal and symmetric. The anterior communicating artery is seen. No stenoses, occlusions, or aneurysms. Posterior circulation: The left vertebral artery is diminutive and likely occluded. There is irregularity of the basilar artery. Reduced or absent flow of the right posterior cerebral artery is present. A similar appearance is noted involving the right superior cerebellar artery. The left posterior cerebral artery and cerebellar arteries are patent and unremarkable. No aneurysms. NECK MR ANGIOGRAM: Carotids: Great vessels demonstrate a conventional anatomy as they arise from the aortic arch. The origins of the common carotid arteries appear patent. The calibers and courses of both common carotid arteries are normal. The bifurcation regions appear normal bilaterally. The internal carotid arteries demonstrate normal course and caliber. Posterior circulation: The right vertebral artery is normal in course and caliber without definite high grade narrowing appreciated. There is mild atherosclerotic irregularity along the origin of the right vertebral artery. Mild tortuosity of the vertebral artery is present. The left vertebral artery is occluded from the level of the origin. Only minimal flow is seen within the distal aspect of the left vertebral artery near the basilar artery, which may be related to collateral vessels or retrograde flow from the right vertebral artery/basilar artery. Miscellaneous: Subclavian arteries appear patent. Pre-contrast images through the neck show no soft tissue abnormalities. IMPRESSION: BRAIN MRI: 1. Right posterior cerebral artery infarction with acute ischemia noted involving the right parietal-occipital region, the right parahippocampal gyrus and superior margins of the right posterior frontal lobe. No hemorrhagic conversion is evident involving these infarcted regions. 2. Small subarachnoid hemorrhage overlying the left temporal occipital region is unusual in the setting of stroke. Please correlate clinically for possible recent head trauma. Followup CT imaging would be of value. 3. Chronic small vessel ischemic changes. 4. Mild parenchymal volume loss. BRAIN MR ANGIOGRAM: 1. Occluded right posterior cerebral artery. Diminutive flow versus occlusion of the right superior cerebellar artery. 2. Irregularity of the basilar artery is suspicious for a dissection. There is no aneurysm. 3. The anterior circulation of the brain is within normal limits. NECK MR ANGIOGRAM: 1. Occluded left vertebral artery is suspicious for dissection. However, chronic long-standing occlusion or occlusion related to atherosclerosis cannot be excluded. 2. Mild atherosclerosis of the origin of the right vertebral artery with mild tortuosity of the vessel without occlusion or high-grade narrowing. 3. No significant atherosclerosis of the bilateral common carotid arteries or internal carotid arteries. There is no aneurysms, high-grade stenoses, or occlusions. Note: These findings were discussed with Dr. Singh at 1425 hours (PST) on 10/20. The estimate of stenosis included in the report of the imaging study was calculated using the NASCET method Dictated by: Jose Enrique Diza M.D. on 10/20/2016 at 13:31 Approved by: Jose Enrique Diaz M.D. on 10/20/2016 at 13:31 PROCEDURE: CT BRAIN WITHOUT CONTRAST ([id number]) INDICATIONS: Weakness and left neglect TECHNIQUE: Noncontrast 4.5 mm thick angled axial sections acquired from the foramen magnum to the vertex, with coronal reformats. COMPARISON: [facility], CT, CT HEAD WO CONTRAST, 06/02/2016, 9:49 PM. FINDINGS: Image quality: Excellent. CSF spaces: Basal cisterns are patent. The ventricles are symmetric in size and shape. There is mild cerebral volume loss, with resultant ventricular and sulcal prominence. Brain: There is effacement of garner-white matter differentiation as well as cortical and subcortical hyperattenuation involving a moderate sized region in the medial right occipital lobe consistent with an acute to subacute infarct. No associated hemorrhagic conversion. However, within the posterior left temporal lobe, there is subtle high attenuation along a few sulci suspicious for a small amount of subarachnoid hemorrhage. In the right padilla radiata, there is an indistinct hypodensity which is new from the prior study and suggestive of a lacunar infarct of indeterminate acuity. There are also subcortical, periventricular and deep white matter hypodensities consistent with mild to moderate chronic small vessel ischemic changes. There is intracranial internal carotid artery atherosclerosis. Skull and face: Calvarium and visualized facial bones appear intact, without suspicious lesions. Sinuses: Visualized sinuses and mastoids are clear. IMPRESSION: 1. Acute or subacute infarct involving the right occipital lobe without associated hemorrhagic conversion. 2. Suggestion of a small amount of subarachnoid hemorrhage along the posterior left temporal lobe. 3. Small hypodensity in the right padilla radiata compatible with a small lacunar infarct of indeterminate acuity. 4. Mild cerebral volume loss and chronic white matter small vessel ischemic changes. Recommend further evaluation with MRI if clinically indicated. Dictated by: Bo Shepard M.D. on 10/20/2016 at 9:37 Approved by: Bo Shepard M.D. on 10/20/2016 at 9:37 PROCEDURE: X-RAY CHEST ONE VIEW, PORTABLE ([id number]) INDICATIONS: Weakness TECHNIQUE: One view of the chest was acquired. COMPARISON: [facility], CR, XR CHEST 1V PORTABLE, 06/02/2016, 8: 37 PM. FINDINGS: Surgical changes and devices: None. Lungs and pleura: The patient limited by patient rotation. No definite pleural effusions or pneumothorax. No definite consolidation. There is a nodular opacity in the left superhilar region likely corresponding to complement vascular structures. Mediastinum: Heart size is enlarged. Bones and chest wall: No suspicious bony lesions. Overlying soft tissues appear unremarkable. IMPRESSION: 1. Limited study due to patient rotation demonstrates no definite consolidation. Recommend repeat study if clinical concern persists. 2. Cardiomegaly. Dictated by: Bo Shepard M.D. on 10/20/2016 at 12:05 Approved by: Bo Shepard M.D. on 10/20/2016 at 12:05 PROCEDURE: CT BRAIN WITHOUT CONTRAST ([id number]) INDICATIONS: Follow up for SAH TECHNIQUE: Noncontrast 4.5 mm thick angled axial sections acquired from the foramen magnum to the vertex, with coronal reformats. COMPARISON: [facility], CT, CT BRAIN WO CON, 10/20/2016, 8:48. FINDINGS: Image quality: Excellent. CSF spaces: Basal cisterns are patent. No extra-axial fluid collections. The ventricles are symmetric in size and shape. Brain: No definite intracranial bleeds or masses but there is mild interval increased mass effect from the medial right posterior occipital infarction, effacing the occipital horn of the right lateral ventricle to a greater degree. No hemorrhagic transformation of this infarction is found. The subtle areas of mild elevated radiodensity at several sulci of the posterior left temporal lobe do not reach the threshold for diagnosis of subarachnoid hemorrhage. There is cerebral volume loss for age, with resultant ventricular and sulcal prominence. There are periventricular and deep white matter chronic small vessel ischemic changes. There is intracranial internal carotid artery atherosclerosis. Skull and face: Calvarium and visualized facial bones appear intact, without suspicious lesions. Sinuses: Visualized sinuses and mastoids are clear. IMPRESSION: Evolution of mild edema associated with a medial right occipital stroke, which has not developed evidence of hemorrhagic transformation. Mild increased mass effect associated, as noted. There is no definite identified focus of subarachnoid hemorrhage. The several subtle areas of increased radiodensity along several left posterior temporal sulci could be more accurately assessed, however, by MR scanning if clinically desired. Any blood products in that area be easily identifiable during MR imaging. Dictated by: Yordy Vilchis M.D. on 10/21/2016 at 11:39 Approved by: Yordy Vilchis M.D. on 10/21/2016 at 11:39 Cardiac Echo Impressions Echocardiogram Report Name: HILDA MARTINEZ YStudy Date: 0 10/22/2016 Height: 63 in Hospital Exam Location: [facility] Weight: 206 lb Gender: Female BSA: 2.0 m2 : 1935 Age: 81 yrs BP: 163/ 69 mmHg Reason For Study: CVA Ordering Physician: HOSPITALIST BISI Performed By: Nima Daley Referring Physician: PAULINA SINGH Interpretation Summary Left ventricular wall thickness is mildly increased. The ejection fraction is estimated to be 60-65%. There appears to be focal mid RV free wall hypertrophy. Consider cardiac MRI to evaluate this further, if clinically indicated The interatrial septum is intact with no evidence for an atrial septal defect. The right ventricular systolic pressure is estimated at 29 mmHg assuming a right atrial pressure of 3 mm Hg. There is no obvious cardiac source of embolus noted on this transthoracic echocardiogram. Follow-up with a FARHAD is suggested if cardiac source is still suspected. Assessment & Plan The patient is a pleasant 81-year-old, right-handed woman with multiple medical problems who reportedly experienced sudden onset of left-sided weakness and neglect. She was initially seen at [facility] and then transferred here. Reportedly she has a history of prior transient ischemic attacks in the past. She reports that her left knee buckled at home when using her walker. She lives with her daughter. She has had she reports 5-6 falls over the last week and has been seeing a physical therapist. She does not recall hitting her head. She describes the sudden onset of weakness of her left leg. Patient was admitted directly to the hospital service for further evaluation and treatment. # Patient has suffered a vascular accident. -Neurology was consulted and patient was seen with neurologist Dr. Riaz Blakely. His assessment and recommendations are as follows: will await FARHAD, cont plavix and repeat CT today, consider inpt rehab as noted below # Cerebral edema secondary to above. Subarachnoid hemorrhage appears to have resolved as demonstrated by today's CT scan. - Patient has worsening of neurologic symptoms due to the cerebral edema. - Cont Plavix in a.m. as recommended by Dr. Blakely - Discussed this with Dr. Blakely and he believes that this will improve with time. # Hypertension. -Continue lisinopril, metoprolol is at home for now. # Diabetes mellitus type 2. -Continue glimepiride and metformin. # Hyperlipidemia. -Continue simvastatin. # Antibiotic therapy. The patient has been on fluconazole and Bactrim, now discontinued - for possible UTI? Disposition: Patient to have continued PT OT and speech therapy and likely will need placement in a rehabilitation center. Will discuss further plans with Dr. Blakely. Patient will need to be transferred to a custodial facility and then when she is able to tolerate 3 hours of exercise a day will be able to be transferred to an acute rehabilitation facility. Pain Evaluation: Adequate Pain Control GI Prophylaxis: Proton Pump Inhibitor VTE Prophylaxis: Sub-Q Enoxaparin Resuscitation Status: CPR: Attempt Resuscitation Time spent 35 minutes spent with pt management Jorge Markham DO Oct 26, 2016 07:32
--- NOTE | 2016-10-26 08:28 | DRSVH ---
PROCEDURE: CT BRAIN WITHOUT CONTRAST ([id number]) INDICATIONS: Stroke TECHNIQUE: Noncontrast 4.5 mm thick angled axial sections acquired from the foramen magnum to the vertex, with c oronal reformats. COMPARISON: [facility], MR, MR STROKE PROTOCOL, 10/20/2016, 12:54. [facility] l, CT, CT BRAIN WO CON, 10/23/2016, 8:29. FINDINGS: Image quality: Excellent. CSF spaces: Basal cisterns are patent. No extra-axial fluid collections. The ventricles are symmet michelle in size and shape. Brain: No intracranial bleeds or masses. There is cerebral volume loss for age, with resultant vent ricular and sulcal prominence. Unchanged chronic infarct in the right frontal lobe, extending into t he right parietal, occipital and temporal lobes. There is subtle appearance of low attenuation in the left occipital lobe, corresponding to diffusion changes. There are periventricular and deep white m atter chronic small vessel ischemic changes. There is intracranial internal carotid artery atheroscl erosis. Skull and face: Calvarium and visualized facial bones appear intact, without suspicious lesions. Sinuses: Visualized sinuses and mastoids are clear. IMPRESSION: 1. Evolving appearance of low attenuation in the left occipital lobe, corresponding to area of subac radha ischemia on MRI 10/20/16. No superimposed hemorrhage. 2. Old right infarct. Dictated by: Daniela Motta M.D. on 10/26/2016 at 8:26 Approved by: Daniela Motta M.D. on 10/26/2016 at 8:26
[2016-10-26] MEDS: Pantoprazole 40 mg ER24 Tablet PO SCH (09:10)
[2016-10-26] MEDS: MeTOProlol XL 25 mg ER24 Tablet PO SCH (09:10)
[2016-10-26 09:41] LABS: BASOPHILS % (AUTO) 0.1 % (0-3); EOSINOPHILS % (AUTO) 0.2 % (0-5); MONOCYTES % (AUTO) 25.9 % (4-12); Mean Corpuscular Hemoglobin 29.3 pg (27.0-35.0); Mean Corpuscular Volume 81.4 fL (81-100); NEUTROPHILS % (AUTO) 50.1 % (40-74); Platelet Count 207 bil/L (150-400)
--- NOTE | 2016-10-26 10:30 | NUR ---
P: Pain I: Gave tylenol to ease headache E: Pt reports headache is much better and almost gone
--- NOTE | 2016-10-26 14:44 | NUR ---
NUTRITION FOLLOW-UP: ASSESS: Pt is a 81yo female admitted for weakness on the left side of her body. Pt reported falling 5-6 times in the previous week. CT and MRI demonstrated pt experienced CVA, with resulting weakness on the left side. Pt is on a soft diet with 1:1 assistance for feeding due to L sided weakness. She is tolerating ~50% of meals. She is receiving Glucerna on L&D trays. Pt is NPO today for FARHAD. Per RN, unable to get new wt because pt cant stand and she is on a low bed. PMHX: , hysterectomy, depression, HTN, Type II DM, HLD, Obesity, TIAs LABS: Reviewed. Na 132, Glu 139 MEDS: Reviewed: Lipitor, Lisinopril, MVI GI: BMx2 10/25 SKIN: Nehemiah 10 CURRENT WT: 93.5 kg BMI: 36.5 kg/m2 IBW: 52.3 kg (no new wt since admit) DIET: Soft, Heart Healthy, Diabetic - PO Intake 25-90% EST. NEEDS: BMI (30-40) Kcals: 5146-5278 kcal/day (20-22 kcal/kg BW) Pro: 65-80g (1.2-1.5g/kg IBW) NUTRITION DIAGNOSIS: 1.) Inadequate oral intake related to difficulty feeding oneself per ST evaluation and left-sided weakness as evidenced by PO intake 25-90%.--PERSISTS NUTRITION INTERVENTION: 1.) Continue supplements of Glucerna BID once diet advanced from NPO 2.) Continue to monitor for new wt if possible MONITOR / EVAL: Diet adv/mike, PO intake, wt, labs, POC. Will continue to monitor per moderate nutritional risk guidelines.
--- NOTE | 2016-10-26 16:03 | CONS ---
[address] [address] CONSULTATION REPORT PATIENT: HILDA MARTINEZ : 1935 MR#: [id number] ADMIT: 10/20/2016 JOB ID: [id number] DATE OF SERVICE: 10/26/2016 CARDIOLOGY CONSULTATION: A transesophageal echocardiogram was ordered today on the patient. 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 However, because of my patient workload I was not able to immediately accommodate their request. I had an opportunity to review the patient's chart and her transthoracic echocardiogram, and I have spoken with her physicians, Dr. Mobley and Dr. Blakely. 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 She was treated medically, and her evaluation consisted of a brain MRA and MRI examination, which demonstrated the right posterior cerebral artery infarction, with MR angiogram showing an occluded right posterior cerebral artery with diminutive flow versus occlusion of the right superior cerebellar artery. There was some suspicion of a basilar artery dissection as well. Her left vertebral artery was occluded with a suspicion for dissection as well, and she otherwise had some mild atherosclerotic lesions. An echocardiogram was performed, which demonstrated mild ventricular hypertrophy but normal left ventricular function. She had moderately severe mitral annular calcification but no other significant valvular heart disease, and the patient was in normal sinus rhythm throughout. She had no evidence of structural heart disease to account for her CVA. Therefore, the reason to do a transesophageal echocardiogram would only be if one was looking for, and wanted to exclude, a patent foramen ovale but that would not impact her care in any way. After reviewing her echocardiogram and clinical history, my recommendation to Dr. Mobley was that a transesophageal echocardiogram was not necessary. I also spoke with Dr. Riaz Blakely, the neurologist, and he is in agreement. The FARHAD therefore was canceled. TIME SPENT: I spent approximately 30 minutes dealing with this issue.
--- NOTE | 2016-10-26 18:37 | NUR ---
Blood Sugar and FARHAD: Patient did not have FARHAD today. She was kept NPO for the test until 1400. Her Oral diabetic meds were held due to her NPO status. She was given her dinner and a snack after discovering that she was not going for the FARHAD. Her blood sugars were stable 139 in the morning and 143 after eating her dinner. These readings are without any diabetic meds today.
[2016-10-27 02:36] VITALS: BP 106/63; PULSE 63; RESP 20; O2SAT 93
[2016-10-27 04:40] VITALS: PULSE 73
[2016-10-27 05:38] VITALS: BP 116/71; PULSE 61; RESP 20; O2SAT 93
[2016-10-27] MEDS: Pantoprazole 40 mg ER24 Tablet PO SCH (09:02)
[2016-10-27] MEDS: MeTOProlol XL 25 mg ER24 Tablet PO SCH (09:04)
[2016-10-27 10:17] VITALS: PULSE 76
[2016-10-27 10:45] VITALS: BP 137/57; PULSE 75; RESP 20; O2SAT 95
--- NOTE | 2016-10-27 11:49 | PCM.DIMED ---
Discharge Instructions Date of Service Oct 27, 2016 Dates of Hospitalization Oct 20, 2016 at 04:09 Discharge Diagnosis Discharge Diagnosis Acute CVA, details below History of TIA Subarachnoid hemorrhage, resolved Hypertension next line diabetes type II Hyperlipidemia Medication Instructions Patient to continue medications including aspirin and Plavix for at least 3 months and then considering decreasing to Plavix alone as per Dr. johnson of neurology recommends Test Results X-Rays, CTs and MRIs PROCEDURE: CT ANGIO HEAD AND NECK (P) INDICATIONS: r/o dissection TECHNIQUE: Pre-contrast 4.5 mm thick sections acquired from the foramen magnum to the vertex. After the administration of intravenous contrast, 1 mm thick sections acquired from the aortic arch through the [place]. Post-contrast 4.5 mm thick sections then re-acquired from the foramen magnum to the vertex. 3- dimensional uqpjvxs-fvobsqlta-dynyrgslbr (MIP) and/or volume rendering reformats were acquired of the central intracranial vasculature and neck separately. For radiation dose reduction, the following was used: automated exposure control, adjustment of mA and/or kV according to patient size. COMPARISON: [facility], , MR STROKE PROTOCOL, 10/20/2016, 12:54. FINDINGS: Image quality: Excellent. BRAIN: CSF spaces: There is mild cerebral volume loss with prominence of the ventricles and sulci. Brain: There is a moderate sized infarct redemonstrated in the right occipital parietal lobe. There are also small infarcts along the posterior right frontal lobe demonstrated medially. Subtle subarachnoid hemorrhage along the posterior left temporal lobe is again noted. No new hemorrhage or mass effect compared to the recent study. A prior lacunar infarct redemonstrated in the right padilla radiata. Skull and face: Calvarium and facial bones appear intact, without suspicious lesions. Orbits appear normal. I Sinuses: Sinuses and mastoids are clear. HEAD CT ANGIOGRAPHY: Anterior circulation: Intracranial internal carotid arteries are patent bilaterally. There is occlusion of the right anterior cerebral artery at the level of the proximal A2 segment. There is likely collateral flow of the distal territories from the left side. The flow within the middle cerebral arteries is patent bilaterally with a short segment stenosis in the M2 segment of the right middle cerebral artery of approximately 50-60%. The anterior communicating artery is patent. No definite aneurysms. Posterior circulation: There is a diminutive distal left vertebral artery which joins with the right vertebral artery to form the basilar artery. There is focal narrowing in the mid basilar artery of approximately 50%. There is persistent circulation with the right posterior cerebral artery supplied by the posterior communicating artery. There is a short segment stenosis within the P2 segment of the right posterior cerebral artery with narrowing of approximately 60-70%. The left posterior cerebral artery appears patent. NECK CT ANGIOGRAPHY: Carotid system: The great vessels demonstrate conventional anatomy as they arise from the aortic arch. The origins of the common carotid arteries appear patent. The common carotid arteries demonstrate normal caliber and courses. The carotid bulbs appear widely patent. The internal carotid arteries demonstrate normal calibers and courses. Posterior circulation: The origin of the left vertebral artery is not well- visualized. There is a long segment occlusion of the proximal left vertebral artery with reconstitution distally at the level of C2. The right vertebral artery appears patent. Soft tissues: The thyroid is heterogeneous in appearance with small indistinct nodules bilaterally as well as multiple foci of calcifications. Bones: No suspicious bony lesions. There is straightening of the cervical lordosis with multilevel degenerative changes including severe disc space narrowing at C5-C6 with endplate osteophytosis and sclerosis. IMPRESSION: 1. 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 The etiology of the chronic occlusion is indeterminate but likely atherosclerotic. 2. Occlusion of the distal right anterior cerebral artery at the level of the proximal A2 segment with likely collateral flow distally from the left side. 3. Short segment stenosis of approximately 50-60% in the M2 segment of the right middle cerebral artery. 4. Short segment stenosis in the P2 segment of the right posterior cerebral artery of approximately 60-70%. 5. Right occipital and posterior frontal lobe infarcts redemonstrated as seen on the recent MRI. 5. Small amount of left subarachnoid hemorrhage redemonstrated along the temporal lobe. No definite new foci of hemorrhage. Dictated by: Bo Shepard M.D. on 10/20/2016 at 17:21 Approved by: Bo Shepard M.D. on 10/20/2016 at 17:21 PROCEDURE: MRI STROKE PROTOCOL ([id number]) Pre- and post-contrast brain MRI, non-contrast brain MR angiogram, pre- and postcontrast neck MR angiogram INDICATIONS: CT (+) stroke TECHNIQUE: Brain: Noncontrast axial T1 spin echo, axial T2 fast spin echo, sagittal and axial FLAIR, coronal T2 fast spin echo, axial gradient echo, axial diffusion and ADC through the brain. After the administration of contrast, axial 3D VIBE of the cranial vasculature and brain. Brain MRA: Non-contrast 3-D time of flight MR angiogram, with multiple maximum- intensity-projection (MIP) reformats performed. Neck MRA: Axial and sagittal TruFISP through the neck. Coronal dynamic MR angiogram during administration of contrast in the arterial and venous phases, with 3-dimenstional atnedcj-awfjpkzdu-ursenyblll (MIP) reformats constructed from subtraction images. COMPARISON: [facility], CT, CT BRAIN WO CON, 10/20/2016, 8:48. FINDINGS: Image quality: Diagnostic. BRAIN: Brain: There is no acute intra-axial hemorrhage. Subtle areas of increased flair signal are identified along the arachnoid space involving the left temporal occipital region (image 10, series 5), compatible with a subarachnoid hemorrhage comment especially when combined with the CT findings. No extra- axial fluid collection is identified. There is no midline shift or mass effect. The orbits are grossly unremarkable. There is a diffuse area of vague increased signal on the flair images involving the posterior right parieto- occipital region and posterior right frontal region near the convexity. Corresponding increased signal within these regions on the diffusion images is present. A small area of increased diffusion and flair signal is noted involving the parahippocampal gyrus is also present at the right temporal lobe. No hemorrhagic conversion is appreciated. Mild decreased enhancement involving these regions is present on the postcontrast images. Additional foci of increased flair signal within the deep white matter of the supratentorial brain are present. The midline intracranial structures are within normal limits. No parenchymal masses are identified. The ventricles and cortical sulci mildly prominent. Bones: The imaged osseous structures are grossly intact. No suspicious osseous lesions are identified. The included paranasal sinuses and mastoid air cells are clear. Extracranial soft tissues: The imaged overlying soft tissues of the face and head are grossly unremarkable. BRAIN MR ANGIOGRAM: Anterior circulation: Intracranial internal carotid arteries are normal in size and enhancement. The flow within the paired anterior cerebral arteries is normal and symmetric. The flow within the middle cerebral arteries is normal and symmetric. The anterior communicating artery is seen. No stenoses, occlusions, or aneurysms. Posterior circulation: The left vertebral artery is diminutive and likely occluded. There is irregularity of the basilar artery. Reduced or absent flow of the right posterior cerebral artery is present. A similar appearance is noted involving the right superior cerebellar artery. The left posterior cerebral artery and cerebellar arteries are patent and unremarkable. No aneurysms. NECK MR ANGIOGRAM: Carotids: Great vessels demonstrate a conventional anatomy as they arise from the aortic arch. The origins of the common carotid arteries appear patent. The calibers and courses of both common carotid arteries are normal. The bifurcation regions appear normal bilaterally. The internal carotid arteries demonstrate normal course and caliber. Posterior circulation: The right vertebral artery is normal in course and caliber without definite high grade narrowing appreciated. There is mild atherosclerotic irregularity along the origin of the right vertebral artery. Mild tortuosity of the vertebral artery is present. The left vertebral artery is occluded from the level of the origin. Only minimal flow is seen within the distal aspect of the left vertebral artery near the basilar artery, which may be related to collateral vessels or retrograde flow from the right vertebral artery/basilar artery. Miscellaneous: Subclavian arteries appear patent. Pre-contrast images through the neck show no soft tissue abnormalities. IMPRESSION: BRAIN MRI: 1. Right posterior cerebral artery infarction with acute ischemia noted involving the right parietal-occipital region, the right parahippocampal gyrus and superior margins of the right posterior frontal lobe. No hemorrhagic conversion is evident involving these infarcted regions. 2. Small subarachnoid hemorrhage overlying the left temporal occipital region is unusual in the setting of stroke. Please correlate clinically for possible recent head trauma. Followup CT imaging would be of value. 3. Chronic small vessel ischemic changes. 4. Mild parenchymal volume loss. BRAIN MR ANGIOGRAM: 1. Occluded right posterior cerebral artery. Diminutive flow versus occlusion of the right superior cerebellar artery. 2. Irregularity of the basilar artery is suspicious for a dissection. There is no aneurysm. 3. The anterior circulation of the brain is within normal limits. NECK MR ANGIOGRAM: 1. Occluded left vertebral artery is suspicious for dissection. However, chronic long-standing occlusion or occlusion related to atherosclerosis cannot be excluded. 2. Mild atherosclerosis of the origin of the right vertebral artery with mild tortuosity of the vessel without occlusion or high-grade narrowing. 3. No significant atherosclerosis of the bilateral common carotid arteries or internal carotid arteries. There is no aneurysms, high-grade stenoses, or occlusions. Note: These findings were discussed with Dr. Singh at 1425 hours (PST) on 10/20. The estimate of stenosis included in the report of the imaging study was calculated using the NASCET method Dictated by: Jose Enrique Diaz M.D. on 10/20/2016 at 13:31 Approved by: Jose Enrique Diaz M.D. on 10/20/2016 at 13:31 PROCEDURE: CT BRAIN WITHOUT CONTRAST ([id number]) INDICATIONS: Weakness and left neglect TECHNIQUE: Noncontrast 4.5 mm thick angled axial sections acquired from the foramen magnum to the vertex, with coronal reformats. COMPARISON: [facility], CT, CT HEAD WO CONTRAST, 06/02/2016, 9:49 PM. FINDINGS: Image quality: Excellent. CSF spaces: Basal cisterns are patent. The ventricles are symmetric in size and shape. There is mild cerebral volume loss, with resultant ventricular and sulcal prominence. Brain: There is effacement of garner-white matter differentiation as well as cortical and subcortical hyperattenuation involving a moderate sized region in the medial right occipital lobe consistent with an acute to subacute infarct. No associated hemorrhagic conversion. However, within the posterior left temporal lobe, there is subtle high attenuation along a few sulci suspicious for a small amount of subarachnoid hemorrhage. In the right padilla radiata, there is an indistinct hypodensity which is new from the prior study and suggestive of a lacunar infarct of indeterminate acuity. There are also subcortical, periventricular and deep white matter hypodensities consistent with mild to moderate chronic small vessel ischemic changes. There is intracranial internal carotid artery atherosclerosis. Skull and face: Calvarium and visualized facial bones appear intact, without suspicious lesions. Sinuses: Visualized sinuses and mastoids are clear. IMPRESSION: 1. Acute or subacute infarct involving the right occipital lobe without associated hemorrhagic conversion. 2. Suggestion of a small amount of subarachnoid hemorrhage along the posterior left temporal lobe. 3. Small hypodensity in the right padilla radiata compatible with a small lacunar infarct of indeterminate acuity. 4. Mild cerebral volume loss and chronic white matter small vessel ischemic changes. Recommend further evaluation with MRI if clinically indicated. Dictated by: Bo Shepard M.D. on 10/20/2016 at 9:37 Approved by: Bo Shepard M.D. on 10/20/2016 at 9:37 PROCEDURE: X-RAY CHEST ONE VIEW, PORTABLE ([id number]) INDICATIONS: Weakness TECHNIQUE: One view of the chest was acquired. COMPARISON: [facility], CR, XR CHEST 1V PORTABLE, 06/02/2016, 8: 37 PM. FINDINGS: Surgical changes and devices: None. Lungs and pleura: The patient limited by patient rotation. No definite pleural effusions or pneumothorax. No definite consolidation. There is a nodular opacity in the left superhilar region likely corresponding to complement vascular structures. Mediastinum: Heart size is enlarged. Bones and chest wall: No suspicious bony lesions. Overlying soft tissues appear unremarkable. IMPRESSION: 1. Limited study due to patient rotation demonstrates no definite consolidation. Recommend repeat study if clinical concern persists. 2. Cardiomegaly. Dictated by: Bo Shepard M.D. on 10/20/2016 at 12:05 Approved by: Bo Shepard M.D. on 10/20/2016 at 12:05 PROCEDURE: CT BRAIN WITHOUT CONTRAST ([id number]) INDICATIONS: Follow up for [facility] TECHNIQUE: Noncontrast 4.5 mm thick angled axial sections acquired from the foramen magnum to the vertex, with coronal reformats. COMPARISON: [facility], CT, CT BRAIN WO CON, 10/20/2016, 8:48. FINDINGS: Image quality: Excellent. CSF spaces: Basal cisterns are patent. No extra-axial fluid collections. The ventricles are symmetric in size and shape. Brain: No definite intracranial bleeds or masses but there is mild interval increased mass effect from the medial right posterior occipital infarction, effacing the occipital horn of the right lateral ventricle to a greater degree. No hemorrhagic transformation of this infarction is found. The subtle areas of mild elevated radiodensity at several sulci of the posterior left temporal lobe do not reach the threshold for diagnosis of subarachnoid hemorrhage. There is cerebral volume loss for age, with resultant ventricular and sulcal prominence. There are periventricular and deep white matter chronic small vessel ischemic changes. There is intracranial internal carotid artery atherosclerosis. Skull and face: Calvarium and visualized facial bones appear intact, without suspicious lesions. Sinuses: Visualized sinuses and mastoids are clear. IMPRESSION: Evolution of mild edema associated with a medial right occipital stroke, which has not developed evidence of hemorrhagic transformation. Mild increased mass effect associated, as noted. There is no definite identified focus of subarachnoid hemorrhage. The several subtle areas of increased radiodensity along several left posterior temporal sulci could be more accurately assessed, however, by MR scanning if clinically desired. Any blood products in that area be easily identifiable during MR imaging. Dictated by: Yordy Vilchis M.D. on 10/21/2016 at 11:39 Approved by: Yordy Vilchis M.D. on 10/21/2016 at 11:39 Cardiac Echo Impressions Echocardiogram Report Name: HILDA MARTINEZ YStudy Date: 0 10/22/2016 Height: 63 in Hospital Exam Location: [facility] Weight: 206 lb Gender: Female BSA: 2.0 m2 : 1935 Age: 81 yrs BP: 163/ 69 mmHg Reason For Study: CVA Ordering Physician: HOSPITALIST [facility] Performed By: Nima Daley Referring Physician: PAULINA SINGH Interpretation Summary Left ventricular wall thickness is mildly increased. The ejection fraction is estimated to be 60-65%. There appears to be focal mid RV free wall hypertrophy. Consider cardiac MRI to evaluate this further, if clinically indicated The interatrial septum is intact with no evidence for an atrial septal defect. The right ventricular systolic pressure is estimated at 29 mmHg assuming a right atrial pressure of 3 mm Hg. There is no obvious cardiac source of embolus noted on this transthoracic echocardiogram. Follow-up with a FARHAD is suggested if cardiac source is still suspected. Diet Low fat, Low Sodium, Heart Healthy, Diabetic Activity Other (discharge to assisted facility for PT/OT/speech therapy) Call your provider Fever or Chills, Bleeding, Vomitting, Excessive diarrhea, Weakness (unilateral) Patient Instructions You are going to be discharged to a rehabilitation center to focus on your strengthening and continue rehabilitation. We will continue on blood thinning medications to reduce her risk of stroke in the future these are aspirin and clopidogrel. Another name for clopidogrel is Plavix. Please follow-up with your primary care physician within 2 weeks of discharge from assisted facility Follow-up with PCP in: 2 weeks (after discharge from rehabilitation center) Jorge Markham DO Oct 27, 2016 11:49
[2016-10-27] MEDS ORDERED: CLOP75TA28 PO (11:51)
[2016-10-27] MEDS ORDERED: ASPI-973 PO (11:51)
[2016-10-27] MEDS ORDERED: LIP40 PO (11:51)
--- NOTE | 2016-10-27 12:02 | PCM.DC.MED ---
Discharge Summary Date of Service Oct 27, 2016 Dates of Hospitalization Date of Hospital Admission Oct 20, 2016 at 04:09 Date of Discharge: Oct 27, 2016 Providers: Admitting Physician: Flip Felix MD Primary Care Physician: Jody Dunham PA-C Attending Physician: Flip Felix MD Diagnosis at Time of Discharge Diagnosis at Time of Discharge Acute CVA, details below History of TIA Subarachnoid hemorrhage, resolved Hypertension next line diabetes type II Hyperlipidemia Consultations Dr. johnsno of neurology Procedures XRay, CTs & MRIs PROCEDURE: CT ANGIO HEAD AND NECK (P) INDICATIONS: r/o dissection TECHNIQUE: Pre-contrast 4.5 mm thick sections acquired from the foramen magnum to the vertex. After the administration of intravenous contrast, 1 mm thick sections acquired from the aortic arch through the [place] of [place]. Post-contrast 4.5 mm thick sections then re-acquired from the foramen magnum to the vertex. 3- dimensional yoadpku-udorlxygw-ukpixdcuex (MIP) and/or volume rendering reformats were acquired of the central intracranial vasculature and neck separately. For radiation dose reduction, the following was used: automated exposure control, adjustment of mA and/or kV according to patient size. COMPARISON: [facility], , MR STROKE PROTOCOL, 10/20/2016, 12:54. FINDINGS: Image quality: Excellent. BRAIN: CSF spaces: There is mild cerebral volume loss with prominence of the ventricles and sulci. Brain: There is a moderate sized infarct redemonstrated in the right occipital parietal lobe. There are also small infarcts along the posterior right frontal lobe demonstrated medially. Subtle subarachnoid hemorrhage along the posterior left temporal lobe is again noted. No new hemorrhage or mass effect compared to the recent study. A prior lacunar infarct redemonstrated in the right padilla radiata. Skull and face: Calvarium and facial bones appear intact, without suspicious lesions. Orbits appear normal. I Sinuses: Sinuses and mastoids are clear. HEAD CT ANGIOGRAPHY: Anterior circulation: Intracranial internal carotid arteries are patent bilaterally. There is occlusion of the right anterior cerebral artery at the level of the proximal A2 segment. There is likely collateral flow of the distal territories from the left side. The flow within the middle cerebral arteries is patent bilaterally with a short segment stenosis in the M2 segment of the right middle cerebral artery of approximately 50-60%. The anterior communicating artery is patent. No definite aneurysms. Posterior circulation: There is a diminutive distal left vertebral artery which joins with the right vertebral artery to form the basilar artery. There is focal narrowing in the mid basilar artery of approximately 50%. There is persistent circulation with the right posterior cerebral artery supplied by the posterior communicating artery. There is a short segment stenosis within the P2 segment of the right posterior cerebral artery with narrowing of approximately 60-70%. The left posterior cerebral artery appears patent. NECK CT ANGIOGRAPHY: Carotid system: The great vessels demonstrate conventional anatomy as they arise from the aortic arch. The origins of the common carotid arteries appear patent. The common carotid arteries demonstrate normal caliber and courses. The carotid bulbs appear widely patent. The internal carotid arteries demonstrate normal calibers and courses. Posterior circulation: The origin of the left vertebral artery is not well- visualized. There is a long segment occlusion of the proximal left vertebral artery with reconstitution distally at the level of C2. The right vertebral artery appears patent. Soft tissues: The thyroid is heterogeneous in appearance with small indistinct nodules bilaterally as well as multiple foci of calcifications. Bones: No suspicious bony lesions. There is straightening of the cervical lordosis with multilevel degenerative changes including severe disc space narrowing at C5-C6 with endplate osteophytosis and sclerosis. IMPRESSION: 1. 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 The etiology of the chronic occlusion is indeterminate but likely atherosclerotic. 2. Occlusion of the distal right anterior cerebral artery at the level of the proximal A2 segment with likely collateral flow distally from the left side. 3. Short segment stenosis of approximately 50-60% in the M2 segment of the right middle cerebral artery. 4. Short segment stenosis in the P2 segment of the right posterior cerebral artery of approximately 60-70%. 5. Right occipital and posterior frontal lobe infarcts redemonstrated as seen on the recent MRI. 5. Small amount of left subarachnoid hemorrhage redemonstrated along the temporal lobe. No definite new foci of hemorrhage. Dictated by: Bo Shepard M.D. on 10/20/2016 at 17:21 Approved by: Bo Sheprad M.D. on 10/20/2016 at 17:21 PROCEDURE: MRI STROKE PROTOCOL ([id number]) Pre- and post-contrast brain MRI, non-contrast brain MR angiogram, pre- and postcontrast neck MR angiogram INDICATIONS: CT (+) stroke TECHNIQUE: Brain: Noncontrast axial T1 spin echo, axial T2 fast spin echo, sagittal and axial FLAIR, coronal T2 fast spin echo, axial gradient echo, axial diffusion and ADC through the brain. After the administration of contrast, axial 3D VIBE of the cranial vasculature and brain. Brain MRA: Non-contrast 3-D time of flight MR angiogram, with multiple maximum- intensity-projection (MIP) reformats performed. Neck MRA: Axial and sagittal TruFISP through the neck. Coronal dynamic MR angiogram during administration of contrast in the arterial and venous phases, with 3-dimenstional webldtb-gsyimbjtc-dwwzsofwce (MIP) reformats constructed from subtraction images. COMPARISON: [facility], CT, CT BRAIN WO CON, 10/20/2016, 8:48. FINDINGS: Image quality: Diagnostic. BRAIN: Brain: There is no acute intra-axial hemorrhage. Subtle areas of increased flair signal are identified along the arachnoid space involving the left temporal occipital region (image 10, series 5), compatible with a subarachnoid hemorrhage comment especially when combined with the CT findings. No extra- axial fluid collection is identified. There is no midline shift or mass effect. The orbits are grossly unremarkable. There is a diffuse area of vague increased signal on the flair images involving the posterior right parieto- occipital region and posterior right frontal region near the convexity. Corresponding increased signal within these regions on the diffusion images is present. A small area of increased diffusion and flair signal is noted involving the parahippocampal gyrus is also present at the right temporal lobe. No hemorrhagic conversion is appreciated. Mild decreased enhancement involving these regions is present on the postcontrast images. Additional foci of increased flair signal within the deep white matter of the supratentorial brain are present. The midline intracranial structures are within normal limits. No parenchymal masses are identified. The ventricles and cortical sulci mildly prominent. Bones: The imaged osseous structures are grossly intact. No suspicious osseous lesions are identified. The included paranasal sinuses and mastoid air cells are clear. Extracranial soft tissues: The imaged overlying soft tissues of the face and head are grossly unremarkable. BRAIN MR ANGIOGRAM: Anterior circulation: Intracranial internal carotid arteries are normal in size and enhancement. The flow within the paired anterior cerebral arteries is normal and symmetric. The flow within the middle cerebral arteries is normal and symmetric. The anterior communicating artery is seen. No stenoses, occlusions, or aneurysms. Posterior circulation: The left vertebral artery is diminutive and likely occluded. There is irregularity of the basilar artery. Reduced or absent flow of the right posterior cerebral artery is present. A similar appearance is noted involving the right superior cerebellar artery. The left posterior cerebral artery and cerebellar arteries are patent and unremarkable. No aneurysms. NECK MR ANGIOGRAM: Carotids: Great vessels demonstrate a conventional anatomy as they arise from the aortic arch. The origins of the common carotid arteries appear patent. The calibers and courses of both common carotid arteries are normal. The bifurcation regions appear normal bilaterally. The internal carotid arteries demonstrate normal course and caliber. Posterior circulation: The right vertebral artery is normal in course and caliber without definite high grade narrowing appreciated. There is mild atherosclerotic irregularity along the origin of the right vertebral artery. Mild tortuosity of the vertebral artery is present. The left vertebral artery is occluded from the level of the origin. Only minimal flow is seen within the distal aspect of the left vertebral artery near the basilar artery, which may be related to collateral vessels or retrograde flow from the right vertebral artery/basilar artery. Miscellaneous: Subclavian arteries appear patent. Pre-contrast images through the neck show no soft tissue abnormalities. IMPRESSION: BRAIN MRI: 1. Right posterior cerebral artery infarction with acute ischemia noted involving the right parietal-occipital region, the right parahippocampal gyrus and superior margins of the right posterior frontal lobe. No hemorrhagic conversion is evident involving these infarcted regions. 2. Small subarachnoid hemorrhage overlying the left temporal occipital region is unusual in the setting of stroke. Please correlate clinically for possible recent head trauma. Followup CT imaging would be of value. 3. Chronic small vessel ischemic changes. 4. Mild parenchymal volume loss. BRAIN MR ANGIOGRAM: 1. Occluded right posterior cerebral artery. Diminutive flow versus occlusion of the right superior cerebellar artery. 2. Irregularity of the basilar artery is suspicious for a dissection. There is no aneurysm. 3. The anterior circulation of the brain is within normal limits. NECK MR ANGIOGRAM: 1. Occluded left vertebral artery is suspicious for dissection. However, chronic long-standing occlusion or occlusion related to atherosclerosis cannot be excluded. 2. Mild atherosclerosis of the origin of the right vertebral artery with mild tortuosity of the vessel without occlusion or high-grade narrowing. 3. No significant atherosclerosis of the bilateral common carotid arteries or internal carotid arteries. There is no aneurysms, high-grade stenoses, or occlusions. Note: These findings were discussed with Dr. Singh at 1425 hours (PST) on 10/20. The estimate of stenosis included in the report of the imaging study was calculated using the NASCET method Dictated by: Jose Enrique Diaz M.D. on 10/20/2016 at 13:31 Approved by: Jose Enrique Diaz M.D. on 10/20/2016 at 13:31 PROCEDURE: CT BRAIN WITHOUT CONTRAST ([id number]) INDICATIONS: Weakness and left neglect TECHNIQUE: Noncontrast 4.5 mm thick angled axial sections acquired from the foramen magnum to the vertex, with coronal reformats. COMPARISON: [facility], CT, CT HEAD WO CONTRAST, 06/02/2016, 9:49 PM. FINDINGS: Image quality: Excellent. CSF spaces: Basal cisterns are patent. The ventricles are symmetric in size and shape. There is mild cerebral volume loss, with resultant ventricular and sulcal prominence. Brain: There is effacement of garner-white matter differentiation as well as cortical and subcortical hyperattenuation involving a moderate sized region in the medial right occipital lobe consistent with an acute to subacute infarct. No associated hemorrhagic conversion. However, within the posterior left temporal lobe, there is subtle high attenuation along a few sulci suspicious for a small amount of subarachnoid hemorrhage. In the right padilla radiata, there is an indistinct hypodensity which is new from the prior study and suggestive of a lacunar infarct of indeterminate acuity. There are also subcortical, periventricular and deep white matter hypodensities consistent with mild to moderate chronic small vessel ischemic changes. There is intracranial internal carotid artery atherosclerosis. Skull and face: Calvarium and visualized facial bones appear intact, without suspicious lesions. Sinuses: Visualized sinuses and mastoids are clear. IMPRESSION: 1. Acute or subacute infarct involving the right occipital lobe without associated hemorrhagic conversion. 2. Suggestion of a small amount of subarachnoid hemorrhage along the posterior left temporal lobe. 3. Small hypodensity in the right padilla radiata compatible with a small lacunar infarct of indeterminate acuity. 4. Mild cerebral volume loss and chronic white matter small vessel ischemic changes. Recommend further evaluation with MRI if clinically indicated. Dictated by: Bo Shepard M.D. on 10/20/2016 at 9:37 Approved by: Bo Shepard M.D. on 10/20/2016 at 9:37 PROCEDURE: X-RAY CHEST ONE VIEW, PORTABLE ([id number]) INDICATIONS: Weakness TECHNIQUE: One view of the chest was acquired. COMPARISON: [facility], CR, XR CHEST 1V PORTABLE, 06/02/2016, 8: 37 PM. FINDINGS: Surgical changes and devices: None. Lungs and pleura: The patient limited by patient rotation. No definite pleural effusions or pneumothorax. No definite consolidation. There is a nodular opacity in the left superhilar region likely corresponding to complement vascular structures. Mediastinum: Heart size is enlarged. Bones and chest wall: No suspicious bony lesions. Overlying soft tissues appear unremarkable. IMPRESSION: 1. Limited study due to patient rotation demonstrates no definite consolidation. Recommend repeat study if clinical concern persists. 2. Cardiomegaly. Dictated by: Bo Shepard M.D. on 10/20/2016 at 12:05 Approved by: Bo Shepard M.D. on 10/20/2016 at 12:05 PROCEDURE: CT BRAIN WITHOUT CONTRAST ([id number]) INDICATIONS: Follow up for [facility] TECHNIQUE: Noncontrast 4.5 mm thick angled axial sections acquired from the foramen magnum to the vertex, with coronal reformats. COMPARISON: [facility], CT, CT BRAIN WO CON, 10/20/2016, 8:48. FINDINGS: Image quality: Excellent. CSF spaces: Basal cisterns are patent. No extra-axial fluid collections. The ventricles are symmetric in size and shape. Brain: No definite intracranial bleeds or masses but there is mild interval increased mass effect from the medial right posterior occipital infarction, effacing the occipital horn of the right lateral ventricle to a greater degree. No hemorrhagic transformation of this infarction is found. The subtle areas of mild elevated radiodensity at several sulci of the posterior left temporal lobe do not reach the threshold for diagnosis of subarachnoid hemorrhage. There is cerebral volume loss for age, with resultant ventricular and sulcal prominence. There are periventricular and deep white matter chronic small vessel ischemic changes. There is intracranial internal carotid artery atherosclerosis. Skull and face: Calvarium and visualized facial bones appear intact, without suspicious lesions. Sinuses: Visualized sinuses and mastoids are clear. IMPRESSION: Evolution of mild edema associated with a medial right occipital stroke, which has not developed evidence of hemorrhagic transformation. Mild increased mass effect associated, as noted. There is no definite identified focus of subarachnoid hemorrhage. The several subtle areas of increased radiodensity along several left posterior temporal sulci could be more accurately assessed, however, by MR scanning if clinically desired. Any blood products in that area be easily identifiable during MR imaging. Dictated by: Yordy Vilchis M.D. on 10/21/2016 at 11:39 Approved by: Yordy Vilchis M.D. on 10/21/2016 at 11:39 Cardiac Echo Impression Echocardiogram Report Name: HILDA MARTINEZ YStudy Date: 0 10/22/2016 Height: 63 in Hospital Exam Location: [facility] Weight: 206 lb Gender: Female BSA: 2.0 m2 : 1935 Age: 81 yrs BP: 163/ 69 mmHg Reason For Study: CVA Ordering Physician: HOSPITALIST [facility] Performed By: Nima Daley Referring Physician: PAULINA SINGH Interpretation Summary Left ventricular wall thickness is mildly increased. The ejection fraction is estimated to be 60-65%. There appears to be focal mid RV free wall hypertrophy. Consider cardiac MRI to evaluate this further, if clinically indicated The interatrial septum is intact with no evidence for an atrial septal defect. The right ventricular systolic pressure is estimated at 29 mmHg assuming a right atrial pressure of 3 mm Hg. There is no obvious cardiac source of embolus noted on this transthoracic echocardiogram. Follow-up with a [facility] is suggested if cardiac source is still suspected. Brief History 81-year-old female admitted from the [facility] Emergency Department where she presented late last night with bilateral lower extremity weakness after her knees buckled under her and she could not get up from the floor. She was found by family quite quickly and so does not have high a risk picture for rhabdo. Workup including urinalysis, labs , troponins and EKGs was all normal but the patient still could not stand and walk and could not return home and so she was admitted on transfer for PT/OT and continued workup/treatment for the progressive weakness. At baseline she uses a walker and lives with her daughter. There has been no chest pain, nausea, vomiting abdominal pain, fevers, chills, sweats, dysuria, bleeding, rash, seizures, depression, new allergies. ALLERGIES: NGOC TYPE PARABEN ANESTHETICS. PAST MEDICAL HISTORY: 1. . 2. Hysterectomy. 3. Depression. 4. Hypertension. 5. DM type 2. 6. Hyperlipidemia. 7. Obesity. Hospital Course The patient is a pleasant 81-year-old, right-handed woman with multiple medical problems who reportedly experienced sudden onset of left-sided weakness and neglect. She was initially seen at [facility] and then transferred here. Reportedly she has a history of prior transient ischemic attacks in the past. She reports that her left knee buckled at home when using her walker. She lives with her daughter. She has had she reports 5-6 falls over the last week and has been seeing a physical therapist. She does not recall hitting her head. She describes the sudden onset of weakness of her left leg. Patient was admitted directly to the hospital service for further evaluation and treatment on admission date above #Acute CVA, right posterior cerebral artery infarction with small subarachnoid hemorrhage and left temporal region -Neurology was consulted and patient was seen with neurologist Dr. Riaz Johnson. Patient started on dual antiplatelet therapy and will be continued for 3 months, consideration for inpatient rehabilitation will be based on evaluation [facility] to see one patient is able to tolerate 3 hours of exercise a day at that point a acute rehabilitation center may be considered. Given subarachnoid hemorrhage, repeat CT was done which showed resolution and the patient's neurologic symptoms initially worsen and then began to improve at the time of discharge in terms of aust[place]-neglect. Dr. Gastelum believed significant neurologic findings were from cerebral edema and this should improve with time BRAIN MRI: 1. Right posterior cerebral artery infarction with acute ischemia noted involving the right parietal-occipital region, the right parahippocampal gyrus and superior margins of the right posterior frontal lobe. No hemorrhagic conversion is evident involving these infarcted regions. 2. Small subarachnoid hemorrhage overlying the left temporal occipital region is unusual in the setting of stroke. Please correlate clinically for possible recent head trauma. Followup CT imaging would be of value. 3. Chronic small vessel ischemic changes. 4. Mild parenchymal volume loss. BRAIN MR ANGIOGRAM: 1. Occluded right posterior cerebral artery. Diminutive flow versus occlusion of the right superior cerebellar artery. 2. Irregularity of the basilar artery is suspicious for a dissection. There is no aneurysm. 3. The anterior circulation of the brain is within normal limits. NECK MR ANGIOGRAM: 1. Occluded left vertebral artery is suspicious for dissection. However, chronic long-standing occlusion or occlusion related to atherosclerosis cannot be excluded. 2. Mild atherosclerosis of the origin of the right vertebral artery with mild tortuosity of the vessel without occlusion or high-grade narrowing. 3. No significant atherosclerosis of the bilateral common carotid arteries or internal carotid arteries. There is no aneurysms, high-grade stenoses, or occlusions. PT evaluation note, 10/26: Pt was conversant w/RN to her (R) side. Pt not responsive to voice from her (L) side, and required tactile cues to respond to questions. Pt able to turn her head toward (L) only slightly beyond neutral, and only w/tactile + verbal cues and light assist. Pt responsive once she was directed, conversational, but conversation only briefly on task w/instruction. Pt allowed PROM to (B) UEs/LEs, but no effort to initiate any movement. Pt demonstrated no effort to participate in rolling, although she did hold PTAs hand w/pt's (R) when instructed verbally and hand actively held. Pt demonstrated no effort to aid tfr into sitting, and initially no effort to sit erect. Pt w/no response to cues for erect sitting until ~5 minutes, gradual response to slight perturbations of wt shift. Pt w/slight effort progressive to mod-maxA semi-erect sitting balance. 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 Pt stated she was tired after ~11 minutes in sitting. MaxA/totalA RTB. No c/o pain. Recommend discharge to SNF; pt unable to maintain safe sitting balance even supported, will require BLS transport. # Hypertension. -Continue lisinopril, metoprolol upon discharge # Diabetes mellitus type 2. -Continue glimepiride and metformin upon discharge, I have decreased her oral hypoglycemic glimepiride given her age and risk of hypoglycemia. Up titration will be deferred to PCP based on sugar levels. # Hyperlipidemia. -Continue simvastatin. # Antibiotic therapy. The patient has been on fluconazole and Bactrim, now discontinued and will be discontinued upon discharge Exam Vital Signs (Last) Date Time Temp Pulse Resp B/P Pulse Ox O2 Delivery O2 Flow Rate FiO2 10/27/16 10:45 36.8 75 20 137/57 95 Room Air Exam General: Patient is in no apparent distress, up in chair eating breakfast this morning HEENT: Head is atraumatic normocephalic. Eyes: Pupils are equally round and reactive to light and accommodation. Extraocular muscles exhibit a right lateral gaze. Sclera are white anicteric. Subconjunctival mucosa is pink. Ears and nose are unremarkable. Oropharynx: There are no mucosal lesions, there is no thrush, there is no pharyngitis. Chest: Is clear to auscultation and percussion. There are no rales, rhonchi, wheezes or rubs. Heart: Rate , rhythm is regular. There is no murmur, rub or gallop. Abdomen: Good bowel sounds are present. Abdomen is soft, nontender, no organomegaly or masses were appreciated. Extremities: Are symmetrical and well perfused. There is no edema, there is no cellulitis, no rash. Neurologic: Patient exhibits left sided neglect. She is unable to move her left upper extremity or her left lower extremity. She has left homonymous [place]- anopsia and right lateral gaze. Right-sided head rotation Psychiatric: Patients mood is calm and shows no sign of agitation. Test 10/20/16 04:30 10/21/16 15:15 10/23/16 06:50 10/25/16 07:15 Urine Color Yellow (YELLOW) Urine Appearance Clear (CLEAR,HAZY) Urine pH 7.0 (5.0-8.0) Urine Specific [place] 1.010 (1.003-1.035) Urine Protein Negativemg/dL (NEG,TRACE) Urine Glucose (UA) Negativemg/dL (NEGATIVE) Urine Ketones Negativemg/dL (NEGATIVE) Urine Occult Blood Negative (NEGATIVE) Urine Nitrite Negative (NEGATIVE) Urine Bilirubin Negative (NEGATIVE) Urine Urobilinogen Normalmg/dL (NORMAL) Urine Leukocyte Esterase Negative (NEGATIVE) Urine RBC 0-2/hpf (0-2) Urine WBC 0-5/hpf (0-5) Urine Epithelial Cells Moderate/hpf (NONE-MOD) Urine Crystals None seen (NONE SEEN) Urine Bacteria None/hpf (NONE-FEW) Urine Hyaline Casts None/lpf (NONE) Urine Granular Casts None seen (NONE SEEN) Urine Waxy Casts None seen (NONE SEEN) Urine Red Blood Cell Casts None seen (NONE SEEN) Urine White Blood Cell Casts None seen (NONE SEEN) Urine Mucus None seen (None Seen) Urine Trichomonas None seen (NONE SEEN) Urine Yeast None (NONE SEEN) Urine Culture Reflexed Not indicated Troponin T < 0.010ug/L (0.0-0.011) Magnesium Level 1.8mg/dL (1.6-2.6) Total Bilirubin 0.5mg/dL (0.0-1.2) Aspartate Amino Transf (AST/SGOT) 18U/L (0-50) Alanine Aminotransferase (ALT/SGPT) 9U/L (0-32) Alkaline Phosphatase 42U/L (25-165) Total Protein 6.3g/dL (6.4-8.4) Albumin 3.8g/dL (3.4-5.0) Test 10/26/16 09:22 10/27/16 07:50 White Blood Count 8.8th/mm3 (3.8-10.1) Red Blood Count 5.60mil/mm3 (3.90-5.20) Hemoglobin 16.4g/dL (12.0-15.6) Hematocrit 45.6% (35.0-46.0) Mean Corpuscular Volume 81.4fL (81-100) Mean Corpuscular Hemoglobin 29.3pg (27.0-35.0) Mean Corpuscular Hemoglobin Concent 36.0% (32.0-37.0) Red Cell Distribution Width 15.1% (12.3-15.4) Platelet Count 207bil/L (150-400) Neutrophils (%) (Auto) 50.1% (40-74) Lymphocytes (%) (Auto) 23.5% (14-46) Monocytes (%) (Auto) 25.9% (4-12) Eosinophils (%) (Auto) 0.2% (0-5) Basophils (%) (Auto) 0.1% (0-3) Sodium Level 130mEq/L (134-144) Potassium Level 5.3mEq/L (3.5-5.2) Chloride Level 97mEq/L (97-108) Carbon Dioxide Level 19mmol/L (18-29) Blood Urea Nitrogen 18mg/dL (8-27) Creatinine 0.80mg/dL (0.57-1.00) Estimat Glomerular Filtration Rate 99mL/min (>59) Glucose Level 149mg/dL (60-99) Calcium Level 8.9mg/dL (8.5-10.1) Discharge Medications Discharge Medications Aspirin (Aspirin) 81 Mg Tablet 81 MG PO DAILY Prescribed by: DANIEL MEZA DO Atorvastatin (Lipitor) 40 Mg Tablet 40 MG PO DAILY Prescribed by: DANIEL MEZA DO Clopidogrel (Clopidogrel) 75 Mg Tablet 75 MG PO DAILY Prescribed by: DANIEL MEZA DO Glimepiride (Amaryl) 2 Mg Tablet 2 MG PO DAILY (Reported) Glucosamine (Glucosamine) 500 Mg Tablet 200 MG PO DAILY (Reported) Lisinopril (Lisinopril) 20 Mg Tablet 20 MG PO DAILY (Reported) Loratadine (Claritin) 10 Mg Capsule 10 MG PO DAILY (Reported) Metformin (Metformin) 500 Mg Tablet 500 MG PO BID (Reported) Metoprolol Succinate ER (Metoprolol Succinate ER) 25 Mg Tab.er.24h 25 MG PO DAILY (Reported) Multivitamin (Multivitamins) 1 Each Capsule 1 EACH PO DAILY (Reported) Additional med instructions Patient to continue medications including aspirin and Plavix for at least 3 months and then considering decreasing to Plavix alone as per Dr. johnson of neurology recommends Followup Plan Discharge Diet: Low fat, Low Sodium, Heart Healthy, Diabetic Discharge Activity: Other ([facility]/ speech therapy) Patient Instructions You are going to be discharged to a rehabilitation center to focus on your strengthening and continue rehabilitation. We will continue on blood thinning medications to reduce her risk of stroke in the future these are aspirin and clopidogrel. Another name for clopidogrel is Plavix. Please follow-up with your primary care physician within 2 weeks of discharge from [facility] facility Follow-up with PCP in: 2 weeks (after discharge from rehabilitation center) Time spent 45 minutes spelled evaluation and management including discharge of this patient copies to: Riaz Johnson MD, David DO Oct 27, 2016 12:02
--- NOTE | 2016-10-27 14:02 | NUR ---
Social Work: Discharge Data: Pt is on day 7 of hospitalization. EMR reviewed. D/C orders are in. PLATE TAKE OUT WORKER spoke with pt's daughter and explained that BLS is required for her mother and that we cannot guarantee that it will be covered pt insurance, she states understanding. PLATE TAKE OUT WORKER spoke with [facility] can accept pt today. PLATE TAKE OUT WORKER set up BLS transportation for 3:30PM today. No further d/c planning needed. Assessment: Pt who needs assistance at baseline. Plan: Pt will d/c to [facility] via [facility]LS at 3:30pm today. No further d/c planning needed. ZULEIMA Carlton
[2016-10-27 14:18] VITALS: BP 107/81; PULSE 76; RESP 20; O2SAT 95
--- NOTE | 2016-10-27 16:31 | NUR ---
Discharge Pt discharged to [facility] at 1605 with all belongings. Gave report to JOVANA White. Dc'd IV intact. Dc'd telemetry. Vitals stable. Pt left on stretcher accompanied by division supervisor with no signs of distress. Addendum: 10/27/16 at 1636 by LORE REGAN Report given to EMT as well
== END 2016-10-27 16:04 | DRG 64 ==
LOC: MPC 04:09
PROVIDERS: ADMIT Family Medicine; ATTEND Family Medicine
DX: I63.541 Cerebral infarction due to unspecified occlusion or stenosis of right cerebellar artery (principal); I60.9 Nontraumatic subarachnoid hemorrhage, unspecified; G93.6 Cerebral edema; N39.0 Urinary tract infection, site not specified; R41.4 Neurologic neglect syndrome; G81.94 Hemiplegia, unspecified affecting left nondominant side; E11.9 Type 2 diabetes mellitus without complications; I10 Essential (primary) hypertension; E78.5 Hyperlipidemia, unspecified; Z91.81 History of falling; R29.708 NIHSS score 8